=== PATIENT | male | born 1950 | race Caucasian/White ===

== ENCOUNTER 2022-11-10 05:50 | Inpatient (IN) ==
--- NOTE | 2022-10-16 08:43 | PAT Medication Instructions ---
Medication Instructions Date of Service October 16, 2022 Home Medications allopurinol 100 mg tablet 100 mg PO QAM ascorbic acid (vitamin C) 1,000 mg capsule 1 g PO QAM aspirin 81 mg tablet,delayed release (Adult Aspirin Regimen) 81 mg PO QAM atorvastatin 80 mg tablet 80 mg PO HS krill oil 500 mg capsule 1 mg PO QAM metoprolol succinate 50 mg tablet,extended release 24 hr (Toprol XL) 50 mg PO HS multivitamin 1 tab PO QAM nitroglycerin 0.4 mg sublingual tablet 0.4 mg sublingual Q5M PRN Chest Pain sildenafil 50 mg tablet 50 mg PO DAILY PRN Sexual Activity vitamin B complex (B Complex-Vitamin B12 tablet) 1 tab PO QAM abiraterone 500 mg tablet 1,000 mg PO QAM clopidogrel 75 mg tablet (Plavix) 75 mg PO QAM lisinopril 20 mg tablet 20 mg PO BID potassium 99 mg tablet 99 mg PO QAM Continue as directed nitroglycerin 0.4 mg sublingual tablet 0.4 mg sublingual Q5M PRN Chest Pain (if needed) ASK your prescriber and surgeon aspirin 81 mg tablet,delayed release (Adult Aspirin Regimen) 81 mg PO QAM clopidogrel 75 mg tablet (Plavix) 75 mg PO QAM abiraterone 500 mg tablet 1,000 mg PO QAM STOP taking 2 weeks before surgery (or as soon as possible if surgery is within 2 weeks) krill oil 500 mg capsule 1 mg PO QAM STOP taking 24 hours before surgery sildenafil 50 mg tablet 50 mg PO DAILY PRN Sexual Activity DO NOT take the morning of surgery ascorbic acid (vitamin C) 1,000 mg capsule 1 g PO QAM multivitamin 1 tab PO QAM vitamin B complex (B Complex-Vitamin B12 tablet) 1 tab PO QAM lisinopril 20 mg tablet 20 mg PO BID potassium 99 mg tablet 99 mg PO QAM Take morning of surgery With a small sip of water, OTHERWISE NOTHING TO EAT OR DRINK AFTER MIDNIGHT: allopurinol 100 mg tablet 100 mg PO QAM Take evening before surgery atorvastatin 80 mg tablet 80 mg PO HS metoprolol succinate 50 mg tablet,extended release 24 hr (Toprol XL) 50 mg PO HS lisinopril 20 mg tablet 20 mg PO BID Other Notes If you have any questions please call us at [phone] or [phone] or [phone] or [phone]
--- NOTE | 2022-10-21 08:17 | Anesthesiology Consultation ---
Date of Service October 21, 2022 Assessment & Plan (1) Encounter for pre-operative examination: - COVID screening: Per assessment on 10/21: No known COVID-19 positive contacts or current COVID-19 related symptoms. Travel screen- returned from [place] 10/18 (work related). Patient vaccinated. At surgeon discretion if preop Covid testing being done. - ASA/plavix instructions per surgeon/prescriber - Cardiology visit (10/03/22): "I asked him to keep followup appointment with Dr. Ventura next week for assessment of the carotid disease. He will change his lisinopril to 20 mg twice a day and metoprolol XL 75 mg at bedtime. I will followup with him after his appointment with Dr. Ventura regarding his carotids. Continue aspirin and Plavix for now along with statin." - Cardiology note (10/09/22): "Moderate risk" Chart Review Chart Review: Acceptable Risk for Surgery and Patient seen in Pre Admission Testing Teaching & Discussion Pre-Anesthesia Teaching/Discussion Notes: Instructed NPO after midnight before surgery,except medications with 15 cc of water. Medication instructions provided according to the PAT guidelines. History Surgery Operation Date: 11/10/22 08:00 Proposed Procedures p Left Transcarotid Artery Revascularization - Arnulfo Ventura MD Height/Weight Height: 5 ft 8 in Weight: 85.8 kg Allergies Allergy/AdvReac Type Severity Reaction Status Date / Time No Known Drug Allergies Allergy Verified 10/15/22 15:05 Medications Home Medications Medication Instructions Recorded Confirmed Last Taken allopurinol 100 mg tablet 100 mg PO QAM 02/20/22 10/15/22 Unknown ascorbic acid (vitamin C) 1,000 mg 1 g PO QAM 02/20/22 10/15/22 Unknown capsule aspirin 81 mg tablet,delayed 81 mg PO QAM 02/20/22 10/15/22 Unknown release (Adult Aspirin Regimen) atorvastatin 80 mg tablet 80 mg PO HS 02/20/22 10/15/22 Unknown krill oil 500 mg capsule 1 mg PO QAM 02/20/22 10/15/22 Unknown metoprolol succinate 50 mg 50 mg PO HS 02/20/22 10/15/22 Unknown tablet,extended release 24 hr (Toprol XL) multivitamin 1 tab PO QAM 02/20/22 10/15/22 Unknown nitroglycerin 0.4 mg sublingual 0.4 mg sublingual Q5M PRN Chest 02/20/22 10/15/22 Unknown tablet Pain sildenafil 50 mg tablet 50 mg PO DAILY PRN Sexual Activity 02/20/22 10/15/22 Unknown vitamin B complex (B 1 tab PO QAM 02/20/22 10/15/22 Unknown Complex-Vitamin B12 tablet) abiraterone 500 mg tablet 1,000 mg PO QAM 10/15/22 10/15/22 Unknown clopidogrel 75 mg tablet (Plavix) 75 mg PO QAM 10/15/22 10/15/22 Unknown lisinopril 20 mg tablet 20 mg PO BID 10/15/22 10/15/22 Unknown potassium 99 mg tablet 99 mg PO QAM 10/15/22 10/15/22 Unknown Past Medical History Medical History Aortic stenosis Mild per 04/2022 echo CAD (coronary artery disease) 2012 > stents x3 Carotid artery stenosis Gout Heart disease HTN (hypertension) Hyperlipidemia Myocardial infarction 2012- Follows w/ cardio (Dr Kristina Ornelas) Prostate cancer on abiraterone daily (and radiation therapy to be done) Exercise / Class Metabolic Activity III < 4 Walking/Shop/Light housework Past Family History Family History Father , Passed age 89 Pancreatic cancer Mother No problems noted. Sister No problems noted. Sister No problems noted. Brother No problems noted. Daughter No problems noted. Past Surgical History Surgical History History of arthroscopic knee surgery History of back surgery x 5 surgeries after a skiing accident ~ 51 yrs ago History of hip surgery Left History of prostate biopsy Dr. Matthew Faye at [facility] History of tonsillectomy and adenoidectomy Hx of cardiac catheterization 2012 Hx of colonoscopy Hx of heart artery stent 2013 > stents x3 Past Anesthesia History No Hx of Anesthesia Complications and No Family Hx of Anesthesia Complications History of PONV No Hx of PONV and No Hx of Motion Sickness Social History Smoking Status: Never smoker Do You Dip or Chew Tobacco: No Hx Alcohol Use: Yes alcohol intake frequency: a few times a week Hx Substance Use: No substance use type: does not use Review of Systems + stable PERALES. Patient denies chest pain, shortness of breath, fever, chills, cough, wheezing, palpitations. Physical Exam Vital Signs VITALS BP 165/89 P 78 TEMP 98.1 SP02 97%RA RESP 16 PHYSICAL Full cervical extension range of motion. Full TMJ range of motion. TMD 3 finger breaths Mallampati Score 3 Dentition: intact, several crowns Lungs: clear throughout to auscultation Cardiac: regular rate and rhythm, no murmurs noted Spine: normal Carotid arteries: negative bruit Extremities: no LE edema Lab Results Anesthesia Preop Results Results Anesthesia Widget: WBC 5.43 K/ul (4.8-10.8) 10/21/22 Hgb 15.0 g/dl (14.0-18.0) 10/21/22 Hct 44.3 % (42.0-52.0) 10/21/22 Plt 221 K/uL (130-400) 10/21/22 Na 143 mmol/L (136-145) 10/21/22 K 3.6 mmol/L (3.5-5.1) 10/21/22 Cl 108 mmol/L (98-107) H 10/21/22 CO2 30 mmol/L (21-32) 10/21/22 BUN 11 mg/dl (6-23) 10/21/22 Creat 0.89 mg/dl (0.6-1.4) 10/21/22 Glucose Level 92 mg/dl (70-99(Fasting)) 10/21/22 PT 10.2 Seconds (9.0-12.0) 10/21/22 PTT 26.4 Seconds (21.0-31.0) 10/21/22 INR 1.0 (0.9-1.1) 10/21/22 Blood Type A Positive 10/21/22 Antibody Screen NEGATIVE 10/21/22 Testing Electrocardiogram Date: 07/04/22 Sinus rhythm at 81 bpm. PVCs. Slight IVCD. ECG without significant abnormalities. Chest X-Ray Date: 10/21/22 FINDINGS: Cardiomediastinal and hilar silhouettes are within normal limits. No pneumothorax, pleural effusion, airspace consolidation or overt pulmonary edema. Mild coarsening of interstitium is likely chronic. Degenerative changes of the shoulders and spine. IMPRESSION: No acute process. Echocardiogram Date: 05/02/22 EF 55%. Moderate LAD. Mild AR. Mild aortic stenosis (MG 13 mmHg) mild MR. Stress Test Date: 09/14/20 Exercise tolerance poor fair. Hemodynamic response to exerciseaccelerated. Rare PVCs and PACs. Stress test negative for ischemia by EKG criteria. Stress EKG negative for ischemia. Other Testing Carotid duplex (04/30/22) Extensive atherosclerotic disease. 50-69% left ICA stenosis based on peak systolic velocities however greater than 70% stenosis suggested by the ICA/CCA ratio. Less than 50% YINKA stenosis. COVID-19 Risk Screen Screening Information COVID-19 Screen Date: 10/21/22 Exposure 21 Days Family/Household +COVID Last 21 Days: No Exposure 10 Days Any COVID Exposure Last 10 Days: No Symptoms Last 10 Days Experienced COVID Sx Last 10 Days: No + COVID 0-90 Days COVID + in Last 0-90 Days: No
[2022-11-10] MEDS ORDERED: CEFAZOLIN 2,000 MG/15 ML SYR IV SCH (06:00)
[2022-11-10] MEDS ORDERED: SODIUM CHLORIDE 0.9% 1000ML 1,000 ML IV SCH (06:00)
[2022-11-10 06:57] LABS: BUN Creatinine Ratio 18.9 (10-20); Creatinine Clr Calc Pharmacy 96.7 ml/min; Est GFR (African American) 107.6 ml/min; Est GFR (Non-African American) 92.8 ml/min; Potassium 3.4 mmol/L (3.5-5.1)
[2022-11-10] MEDS ORDERED: fentaNYL citrate PF 100 MCG/2 ML VIAL ONE ×2 (07:19)
[2022-11-10] MEDS ORDERED: MIDAZOLAM HCL 1 MG/ML 2ML VIAL ONE (07:19)
[2022-11-10] MEDS ORDERED: LIDOCAINE 2% 2 ML VIAL/AMP(20MG/ML) INFIL ONE (07:19)
[2022-11-10] MEDS ORDERED: ACETAMINOPHEN 1000 MG/100 ML IV IV ONE (07:24)
[2022-11-10] MEDS ORDERED: FAMOTIDINE/PF 20 MG/2 ML VIAL IV ONE (07:25)
[2022-11-10] MEDS ORDERED: ROCURONIUM BROMIDE 10 MG/ML 5 ML VIAL IV ONE ×2 (07:25→07:44)
[2022-11-10] MEDS ORDERED: HEPARIN (PORCINE) 1000 UNIT/ML 10 ML (CATH LAB USE ONLY) ONE (07:28)
[2022-11-10] MEDS ORDERED: ceFAZolin 330 MG/ML 1 GM VIAL ONE (07:28)
[2022-11-10] MEDS ORDERED: THROMBIN FOR SOLN 20000 UNIT KIT ONE (07:29)
[2022-11-10] MEDS ORDERED: GELATIN SPONGE SZ 100 ONE (07:29)
--- NOTE | 2022-11-10 07:43 | History & Physical Report ---
Date of Service November 10, 2022 History of Present Illness Primary Care Provider: BALDO [place] Name: FREDY FARIAS Patient Number: [id number] : 1950 Date of Service: 10/09/2022 Chief Complaint: _New patient consultation for carotid stenosis HPI: _Mr. Farias is an elderly male who presents to Dr. Ventura's vascular surgery clinic today as a new patient in consultation for severe left ICA stenosis noted on recent imaging. 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 He states when he went for his follow-up visit in June, she advi sed him that the ultrasound showed significant narrowing his neck artery she was going to have him undergo a CTA. The CTA confirmed the severe stenosis, and he was referred here for possible surgical intervention. Patient denies any history of CVA. He specifically denies amaurosis, extremity weakness numbness or tingling, difficulty speaking or swallowing, facial droop, sudden onset confusion. He also denies headache, fever, recent illness, chest pain, shortness of breath, abdominal pain, nausea, vomiting, rest pain, claudication, nonhealing wounds or ulcers, other complaints. He is very active, and fly fishes regularly. He does state that his in July of this year, and he has been dealing with this. Additionally he was recently diagnosed with prostate cancer which is an operable, but he is taking oral medications and will undergo radiation at a later time. Review of systems: A total of 14 systems were reviewed and are negative aside from what is related in his HPI Imaging: Patient underwent a CTA of the neck performed at [facility] 07/25/2022 which demonstrates a severe stenosis of the left ICA which is near occlusive. His right ICA demonstrates about 50% stenosis. Current Home Meds: (Last Updated 10/09 09:18) abiraterone (abiraterone 250 mg oral tablet) 1,000 mg PO Daily allopurinol (allopurinol 100 mg oral tablet) 100 mg PO bid ascorbic acid (Vitamin C 1000 mg oral tablet) 1,000 mg PO Daily aspirin (aspirin 81 mg oral delayed release tablet) 81 mg PO Daily atorvastatin (atorvastatin 80 mg oral tablet) 80 mg PO qhs clopidogrel (clopidogrel 75 mg oral tablet) 75 mg PO Daily lisinopril (lisinopril 20 mg oral tablet) 2 tabs po q AM and 1 tab q PM methylcobalamin (Vitamin B12 Methylcobalamin 5000 mcg sublingual tablet) 5,000 mcg SL Daily metoprolol (Metoprolol Succinate ER 50 mg oral tablet, extended release) 1.5 tablets po q PM multivitamin 1 tab PO Daily potassium chloride (Potassium Chloride (Ywz-Mjlq-Eji M20) 20 mEq oral tablet, extended release) 20 mEq PO Daily Allergies and Sensitivities: NKA Past Medical History: Problems: Bilateral carotid artery stenosis Coronary artery disease Hypertension Hyperlipidemia Prostate CA PVCs Surgical history: Positive for cardiac catheterization with coronary stent placement 2013, back surgery at the age of 21 left knee torn meniscus, tonsillectomy Social history: Patient is a lifelong non-smoker. He occasionally has alcohol, he denies any illicit drug use. He is very active. Family history: Parents of natural causes, no known definite illnesses. Siblings have no medical problems. OBJECTIVE Vitals: Last Updated 10/09/22 09:32 Date Temp BP Location Pulse RR SpO2 Pain 10/09/22 160/90 Right Arm 10/09/22 168/92 Left Arm 79 97 0 Vital Signs are the last 3 documented. No Orthostatic Data Available Height and Weight: Last Updated 10/09/22 09:29 Date BMI Wt(kg) Wt(lb) Method Ht(cm) (ft-in) Method 10/09/22 85.6 188 Standing Scale Heights and Weights are the last 3 documented. Physical Exam Constitutional: In general patient is a healthy-appearing well-nourished well- developed elderly male no distress. He is alert and oriented without any focal deficits. His trachea is midline. His left neck demonstrates a very faint high-pitched bruit. His heart is regular, his lungs are clear. His abdomen soft nontender with normoactive bowel sounds in all 4 quadrants. Brachial radial and left femoral pulses +3. Right femoral pulse is +2. His lower extremities a pulses are +1. He has brisk capillary refill and no sign of distal ischemia. He has no edema. ASSESSMENT: _ PLAN: _ 1 ) _bilateral ICA stenosis Patient has about 50% stenosis of the right ICA and over 95% stenosis of his left ICA by CTA. Patient was also seen by Dr. Ventura today who reviewed the patient's imaging. Due to the severity of the stenosis in his left ICA, we recommend that he undergo surgical intervention to prevent a cerebrovascular event. The surgical options of carotid endarterectomy versus transcarotid artery revascularization were discussed at length with the patient, including th e risks, benefits, and advantages of each. Patient elects to proceed with a transcarotid artery revascularization on the left ICA. The procedure risks benefits and alternatives were discussed with the patient by myself at Dr. Ventura's request. Patient expresses understanding and agreement to proceed. Patient is already taking clopidogrel, baby aspirin, and atorvastatin. He will need to undergo platelet function testing prior to his procedure. He was advised to call with any other questions or concerns. Thank you for letting us participate in the care of this patient. Signature Line Electronic Signature on File CC: Kristina Ornelas [address] [id number] * CC: BALDO Bonilla [address] [id number] * Electronically Reviewed/Signed by: Bibi Sherwood PA-C Author Signature Dt/Tm:10/09/2022 10:[address] [facility] [place], [address] [place] [address] LM Result Type: HVI Outpt Note Date of Service: October 09, 2022 10:18 EDT Authorization Status: Final Author or Import Date: MAU Sherwood Lynn on October 09, 2022 10:53 EDT Verified By: MAU Sherwood Lynn on October 09, 2022 10:53 EDT Encounter info: [id number], [facility], Clinic, 10/09/2022 - 10/09/2022 Allergies Allergy/AdvReac Type Severity Reaction Status Date / Time No Known Drug Allergies Allergy Verified 11/10/22 06:21 Home Medications Medication Instructions Recorded Confirmed Type allopurinol 100 mg tablet 100 mg PO QAM 02/20/22 11/10/22 History ascorbic acid (vitamin C) 1,000 mg 1 g PO QAM 02/20/22 11/10/22 History capsule aspirin 81 mg tablet,delayed 81 mg PO QAM 02/20/22 11/10/22 History release (Adult Aspirin Regimen) atorvastatin 80 mg tablet 80 mg PO HS 02/20/22 11/10/22 History krill oil 500 mg capsule 1 mg PO QAM 02/20/22 11/10/22 History metoprolol succinate 50 mg 50 mg PO HS 02/20/22 11/10/22 History tablet,extended release 24 hr (Toprol XL) multivitamin 1 tab PO QAM 02/20/22 11/10/22 History nitroglycerin 0.4 mg sublingual 0.4 mg sublingual Q5M PRN Chest 02/20/22 11/10/22 History tablet Pain sildenafil 50 mg tablet 50 mg PO DAILY PRN Sexual Activity 02/20/22 11/10/22 History vitamin B complex (B 1 tab PO QAM 02/20/22 11/10/22 History Complex-Vitamin B12 tablet) abiraterone 500 mg tablet 1,000 mg PO QAM 10/15/22 11/10/22 History clopidogrel 75 mg tablet (Plavix) 75 mg PO QAM 10/15/22 11/10/22 History lisinopril 20 mg tablet 20 mg PO BID 10/15/22 11/10/22 History potassium 99 mg tablet 99 mg PO QAM 10/15/22 11/10/22 History amlodipine 5 mg tablet 5 mg PO DAILY 11/04/22 11/10/22 History Past Med/Surg History Medical History Aortic stenosis Mild per 04/2022 echo CAD (coronary artery disease) 2012 > stents x3 Carotid artery stenosis Gout Heart disease HTN (hypertension) Hyperlipidemia Myocardial infarction 2012- Follows w/ cardio (Dr Kristina Ornelas) Prostate cancer on abiraterone daily (and radiation therapy to be done) Surgical History History of arthroscopic knee surgery History of back surgery x 5 surgeries after a skiing accident ~ 51 yrs ago History of hip surgery Left History of prostate biopsy Dr. Matthew Faye at [facility] History of tonsillectomy and adenoidectomy Hx of cardiac catheterization 2012 Hx of colonoscopy Hx of heart artery stent 2013 > stents x3 Family History Father , Passed age 89 Pancreatic cancer Mother No problems noted. Sister No problems noted. Sister No problems noted. Brother No problems noted. Daughter No problems noted. Social History Smoking Status: Never smoker Second Hand Exposure: No; Do You Dip or Chew Tobacco: No; Tobacco Cessation Education Requested by Patient: No Hx Alcohol Use: Yes Alcohol Intake Frequency: Monthly or Less Hx Substance Use: No Preferred Language: Somali Communication Ability: Effective Visual Impairment: Limited Hearing Ability: Normal Apiculture Teacher Required: No Beliefs That Will Affect Care: None marital status: Current Living Situation: Alone current occupational status: employed current occupation: [employer] How many Children do You have: 1 Other Information That Helps Us Care for You: No Feels Safe at Home: Yes Safety Concerns: Feels Safe At This Time Childhood Exposure to Second-Hand Smoke: No Diet: regular caffeine: Yes (1 cup of coffee daily) during the past year weight has: remained stable Dental Care, Regularly: Yes Assistive Devices: Contacts and Glasses Results & Data Vital Signs (Past 12 Hours) Vital Signs Temp Pulse Resp BP Pulse Ox O2 Del Method 11/10/22 06:29 37 C 75 20 178/103 H 97 Room Air
[2022-11-10] MEDS ORDERED: ATROPINE SULFATE 0.1 MG/ML 10ML SYR IV PRN (07:48)
[2022-11-10] MEDS ORDERED: ePHEDrine sulfate 50 MG/ML AMP IV PRN (07:48)
[2022-11-10] MEDS ORDERED: fentaNYL citrate PF 100 MCG/2 ML VIAL IV PRN (07:48)
[2022-11-10] MEDS ORDERED: ONDANSETRON INJ 2 MG/ML 2 ML VIAL IV PRN ×2 (07:48→11:36)
[2022-11-10] MEDS ORDERED: HYDROmorphone INJ 2 MG/ML SYR/VIAL IV PRN (07:48)
[2022-11-10] MEDS ORDERED: HEPARIN SOD (PORCINE) 1000 UNIT/ML ONE (09:08)
[2022-11-10] MEDS ORDERED: ONDANSETRON INJ 2 MG/ML 2 ML VIAL ONE (09:08)
[2022-11-10] MEDS ORDERED: VASOPRESSIN 20 UNIT/ML VIAL ONE (09:09)
[2022-11-10] MEDS: LIDOCAINE 1% LOCAL 20 ML VIAL ONE ×2 (09:18→09:45)
[2022-11-10] MEDS: BUPIVACAINE/EPINEPHRINE 0.5% MPF 1:200,000 30 ML VIAL ONE ×2 (09:18→09:45)
[2022-11-10] MEDS ORDERED: PROTAMINE SULFATE 10 MG/ML 5 ML VIAL IV ONE (09:22)
[2022-11-10] MEDS ORDERED: STAT IV Infusion **Titration per Protocol STA (09:23)
[2022-11-10] MEDS ORDERED: LARYING-O-JET KIT (LTA) ONE (09:26)
[2022-11-10] MEDS ORDERED: VISIPAQUE IV ONE (09:35)
[2022-11-10] MEDS ORDERED: SUGAMMADEX SODIUM 200 MG/2 ML VIAL IV ONE (09:38)
--- NOTE | 2022-11-10 09:51 | Procedure Note ---
Angiogram Post Procedure Fluoroscopy Time (minutes): 1.8 Radiation (mGy): 21 Contrast: 10 Post Operative Report Pre & Post Diagnosis Operation Date: 11/10/22 08:00 Pre-Op Diagnosis: Left Internal Carotid Artery Stenosis Post-Op Diagnosis: Left Internal Carotid Artery Stenosis I identified the patient and participated in the time-out.: Yes Procedure Operation Date: 11/10/22 08:00 Actual Procedures p Left Transcarotid Artery Revascularization(Left) - Arnulfo Ventura MD Surgeon Arnulfo Ventura MD Gear Shaver Set Up Operator MARIETTA Mcnulty Estimated Blood Loss 40 Findings Consistent with Post-Op Diagnosis Specimens none Anesthesia Type General Complications none Disposition Accompanied Patient To Recovery: No Disposition: Recovery Room Indications Patient is a 72-year-old female found to have severe left internal carotid artery stenosis. Carotid intervention was recommended. Went over the risks options and benefits of carotid endarterectomy versus TCAR. Patient elected to go ahead with a TCAR procedure. I have discussed the risks options and benefits of the procedure with the patient. The patient understands the risks options and benefits and agrees to the procedure. Description of Procedure The patient was taken to the operating room and placed in supine position. After general anesthesia was accomplished the groins and left side of the neck and chest were prepped and draped in a sterile manner. Timeout was performed and the patient was identified. A transverse incision was made just above the clavicle between the heads of the sternocleidomastoid. This was carried down to where the common carotid artery was identified. It was isolated and slung with an umbilical tape. A 5-0 Prolene U stitch was then placed in the common carotid artery. It was given 8000units of heparin at that time. Ultrasound was then used to localize the left common femoral vein. The vein was patent and compressed easily. Under ultrasound guidance the left common femoral vein was punctured and the venous sheath was inserted. This was aspirated and flushed with heparinized saline. An ACT at that time was 269. Using micropuncture technique the common carotid artery was punctured. The micro sheath was inserted to 3 cm. Injection was then done showing the bifurcation. There was a significant lesion seen at the origin of the internal carotid artery on the left side. We reinserted the micro wire and passed it into the external carotid. We then advanced the dilator and sheath into the external carotid. The dilater and sheath were removed. We then inserted the J-wire into the external carotid artery. The TCAR sheath was inserted. The footplate was removed being that we tunneled the sheath from below the clavicle. Once it was in place and held against the artery it was sutured to the chest wall and the incision edge. We then flushed the tubing appropriately. The venous return tubing was clamped onto the TCAR sheath. It was flushed through and then attached to the venous inflow sheath in the right groin. The sheath was checked for flow. We then inserted a 5 x 35 balloon backloaded on the wire. The wire was passed through the lesion into the petrous portion of the internal carotid. The 5 mm balloon was then advanced to the lesion. The lesion was then predilated with the 5 mm balloon. The balloon was removed. We then inserted the 10 x 40 stent. This was deployed across the lesion without difficulty. The catheter was removed. The carotid was allowed to go 2 minutes with flow reversal. Completion angiogram was done at that time which showed only minimal residual stenosis at the location of the severe stenosis..The wire was removed we allowed 2 minutes of flow reversal to occur. A that point the common carotid artery was unclamped. The venous return tubing was clamped and removed from the TCAR sheath. The blood was allowed to flow back into the venous system. Once this was completed the sheath was pulled from the groin and pressure was applied. The TCAR sheath was then removed and the 5-0 Prolene suture securely tied. Hemostasis was noted of the puncture site. Wound was irrigated with Ancef solution. Adequate hemostasis was obtained of the wound. Once this was noted the wound was closed in usual fashion using a 3-0 Vicryl suture for the subcutaneous layer and a 4-0 subcuticular Vicryl suture for the skin edges. Dermabond was used for dressing.The patient left the operation room in satisfactory condition and tolerated the procedure well. All needle and sponge counts were correct at the end of the procedure Bibi Sherwood Pac assisted due to lack of resident availability and was necessary for positioning, draping, retraction, wound closure deep layers, subcutaneous tissue, and skin closure and was necessary for assisting with the case.. I attest to the content of the Intraoperative Record and any orders documented therein. Any exceptions are noted below.
[2022-11-10] MEDS ORDERED: PHENYLEPHRINE HCL 10 MG/ML VIAL ONE (10:21)
[2022-11-10] MEDS: PHENYLEPHRINE/NSS 25 MG/250 ML BAG IV SCH ×2 (10:44→20:31)
--- NOTE | 2022-11-10 11:14 | Anesthesiology Progress Note ---
Date of Service November 10, 2022 Anesthesia Post Procedure Vital Signs Vital Signs: Temp Pulse Pulse Resp BP Pulse Ox O2 Del Method 11/10/22 10:40 85 15 131/76 92 Room Air 11/10/22 10:30 87 13 141/77 H 93 Room Air 11/10/22 11:00 36.5 C 77 14 163/99 H 96 Nasal Cannula 11/10/22 10:50 79 11 L 124/71 93 Nasal Cannula 11/10/22 10:20 88 16 134/86 99 Oxymask 11/10/22 10:10 36.2 C L 90 12 153/97 H 97 Oxymask 11/10/22 06:29 37 C 75 20 178/103 H 97 Room Air O2 Flow Rate 11/10/22 10:40 11/10/22 10:30 11/10/22 11:00 2 11/10/22 10:50 2 11/10/22 10:20 5 11/10/22 10:10 5 11/10/22 06:29 Pain Intensity Left Upper Chest: Pain Intensity: 4 Transfer of Care Handoff Completed per policy Notes Mental Status: alert / awake / arousable and participated in evaluation Patient Amnestic to Procedure: Yes Nausea / Vomiting: adequately controlled Pain: adequately controlled Airway Patency, RR, SpO2: stable & adequate BP & HR: stable & adequate Hydration State: stable & adequate Anesthetic Complications: no major complications apparent and Pt Satisfied with anesthetic care
[2022-11-10] MEDS ORDERED: NON-FORMULARY MEDICATION (Sildenafil 50 mg tablet) PO PRN (11:36)
[2022-11-10] MEDS ORDERED: NITROGLYCERIN SL 0.4 MG/TAB TAB SL PRN (11:36)
[2022-11-10] MEDS ORDERED: LACTATED RINGER'S 1,000 ML IV SCH (11:36)
[2022-11-10] MEDS: oxyCODONE/ACETAMINOPHEN 5mg/325mg TAB PO PRN ×4 (12:14→23:59)
--- NOTE | 2022-11-10 12:28 | Critical Care Consultation ---
Date of Consultation November 10, 2022 Assessment & Plan (1) Stented coronary artery: (2) Unifocal PVCs: (3) Heart disease: (4) Gout: (5) HTN (hypertension): (6) Hyperlipidemia: (7) Prostate cancer: Plan Reason Critically Ill: 72-year-old male with severe LEFT-sided carotid artery disease status post TCAR requiring close hemodynamic and neurologic monitoring status post vascular intervention. NEURO - * CAM ICU: NEGATIVE * Headache: * Patient complains of slight headache rated 4/10 at this time. * No focal neurological deficits on exam. * Patient complained of this headache prior to surgical intervention. * Will treat headache conservatively initially and consider evaluation with follow-up imaging in the event that it were to change or worsen. * Monitor neurological status closely in the patient who is status post TCAR. CARDIAC/VASCULAR - * Carotid artery stenosis status post TCAR of the LEFT-sided carotid artery: * Postsurgical incision sites and LEFT-sided neck appear well on exam. * No focal neurological deficits on exam noted. * Continue to monitor blood pressure and neurochecks per postoperative unit protocol. * Deferred to vascular surgery for postoperative management otherwise. * Coronary disease, hypertension, hyperlipidemia: * Continue home medications as tolerated. * Monitor on telemetry. RESPIRATORY - * No history of pulmonary disease. * Saturating well on room air. GI/NUTRITION - * Progress diet as tolerated. RENAL/LYTES - * No significant electrolyte derangements. - * Metastatic prostate cancer: * Patient currently taking abiraterone. * Starts 5 weeks of radiation soon. ENDO - * No h/o DM or thyroid Dz * BSGs per unit protocol. ISS --> gtt per unit policy. HEME - * Stable H&H. * Monitor for s/s bleeding s/p vascular intervention. ID - * No concerns for infectious contribution at this time. LINES/IV ACCESS - * PIVs x2 * LEFT Radial Arterial Line DVT PROPHYLAXIS - * Hold on chemoprophylaxis s/p TCAR. Defer to Vascular surgery moving forward. Anticipate early ambulation and discharge. * SCDs I have personally spent 35 minutes of critical care time in the direct management of this patient. This is a life/limb threatening event. This includes time spent evaluating patient, direct bedside care, chart review, placing orders, interpretation of diagnostic studies, discussion with consultants, patient, and family members, as well as other required patient management activities. This time is exclusive of all separately billable procedures, and teaching time and separate from and in addition to any other critical care service time. Thank you for allowing us to participate in the care of this patient. Please refer to my attending physician's documentation for any further recommendations. Supervising Physician Co-Signing Physician Notes I saw and evaluated the patient with Chris Chacon PA-C, and agree with findings and plan as documented in the note. 72-year-old male admitted to the hospital ICU s/p left-sided TCAR Past medical history: Coronary artery disease, hypertension, dyslipidemia, gout, recently diagnosed with metastatic prostate CA At the time of examination patient systolic blood pressure was 150s. He had just been turned off of norepinephrine Denies any headache, no nausea vomiting. Did complain of pain at the left surgical site. No blurry vision No chest pain, no shortness of breath He was saturating 94-96% on room air Constitutional: No acute distress HEENT: EOMI, PERRLA, left-sided incision site clean Respiratory system: Decreased air entry bilaterally, no wheeze, no rhonchi, positive crackles bilateral lower lobes CVS: S1-S2 positive, no murmurs or gallops Abdomen: Soft, nontender, nondistended, positive bowel sounds x4 Extremities: +2 pulses bilaterally radialis/ dorsalis pedis, no cyanosis, no edema Neuro: Awake alert oriented x3, strength 5 out of 5 bilateral upper and lower extremity, cranial nerves II to XII grossly intact Psych: Normal mood and affect G/U: No edema Plan: Monitor blood pressure Medication to control the pain Neurochecks as per protocol Potassium today was 3.4. We will give 40 mg of p.o. potassium He is on chronic 20 mg of potassium p.o. on a daily basis Follow vascular surgery recommendations Please note the above document was generated using voice recognition software. It may contain grammatical, syntax or spelling errors.Any formal questions or c oncerns about the content, text or information contained within the body of this dictation should be directly addressed to the provider for clarification. History of Present Illness Reason for Consultation: s/p TCAR Requesting Physician: Dr. Ventura Attending Physician: Arnulfo Ventura MD History of Present Illness Patient is a 72-year-old male with a significant past medical history of coronary artery disease, hypertension, hyperlipidemia, gout, PVCs, and recent diagnosis of metastatic prostate cancer who was admitted to the ICU status post TCAR. Patient had undergone routine screening imaging and was noted to have LEFT-sided coronary artery stenosis. He underwent CTA which suggested 95% stenosis on the LEFT and 50% stenosis on the RIGHT. Thankfully, the patient has been without symptoms of headaches, dizziness, lightheadedness, blurry vision, double vision, slurred speech, unilateral weakness/numbness, or other neurological findings. Upon evaluation in the ICU, the patient is awake, alert, and oriented. He complains of a slight headache which he rates a 4/10 and notes that it was present this morning prior to the surgery. Otherwise, he notes some pain at the LEFT sided neck base as the surgical site. He denies complaints of visual disturbances, slurred speech, facial droop, numbness/weakness to the extremities, chest pain, palpitations, shortness of breath, nausea, or vomiting. Allergies Allergy/AdvReac Type Severity Reaction Status Date / Time No Known Drug Allergies Allergy Verified 11/10/22 06:21 Home Medications Medication Instructions Recorded Confirmed Type allopurinol 100 mg tablet 100 mg PO QAM 02/20/22 11/10/22 History ascorbic acid (vitamin C) 1,000 mg 1 g PO QAM 02/20/22 11/10/22 History capsule aspirin 81 mg tablet,delayed 81 mg PO QAM 02/20/22 11/10/22 History release (Adult Aspirin Regimen) atorvastatin 80 mg tablet 80 mg PO HS 02/20/22 11/10/22 History krill oil 500 mg capsule 1 mg PO QAM 02/20/22 11/10/22 History metoprolol succinate 50 mg 50 mg PO HS 02/20/22 11/10/22 History tablet,extended release 24 hr (Toprol XL) multivitamin 1 tab PO QAM 02/20/22 11/10/22 History nitroglycerin 0.4 mg sublingual 0.4 mg sublingual Q5M PRN Chest 02/20/22 History tablet Pain sildenafil 50 mg tablet 50 mg PO DAILY PRN Sexual Activity 02/20/22 11/10/22 History vitamin B complex (B 1 tab PO QAM 02/20/22 11/10/22 History Complex-Vitamin B12 tablet) abiraterone 500 mg tablet 1,000 mg PO QAM 10/15/22 11/10/22 History clopidogrel 75 mg tablet (Plavix) 75 mg PO QAM 10/15/22 11/10/22 History lisinopril 20 mg tablet 20 mg PO BID 10/15/22 11/10/22 History potassium 99 mg tablet 99 mg PO QAM 10/15/22 11/10/22 History amlodipine 5 mg tablet 5 mg PO DAILY 11/04/22 11/10/22 History Patient History Medical History (Updated 11/10/22 @ 12:24 by Chris Chacon PA-C) Aortic stenosis Mild per 04/2022 echo CAD (coronary artery disease) 2012 > stents x3 Carotid artery stenosis Gout Heart disease HTN (hypertension) Hyperlipidemia Myocardial infarction 2012- Follows w/ cardio (Dr Kristina Ornelas) Prostate cancer on abiraterone daily (and radiation therapy to be done) Surgical History History of arthroscopic knee surgery History of back surgery x 5 surgeries after a skiing accident ~ 51 yrs ago History of hip surgery Left History of prostate biopsy Dr. Matthew Faye at [facility] History of tonsillectomy and adenoidectomy Hx of cardiac catheterization 2012 Hx of colonoscopy Hx of heart artery stent 2012 > stents x3 Family History Father , Passed age 89 Pancreatic cancer Mother No problems noted. Sister No problems noted. Sister No problems noted. Brother No problems noted. Daughter No problems noted. Social History Smoking Status: Never smoker Second Hand Exposure: No; Do You Dip or Chew Tobacco: No; Tobacco Cessation Education Requested by Patient: No Hx Alcohol Use: Yes Alcohol type: beer, wine and hard liquor Alcohol Intake Frequency: Monthly or Less Hx Substance Use: No Preferred Language: [place]an Communication Ability: Effective Visual Impairment: Limited Hearing Ability: Normal Double Cutter Required: No Beliefs That Will Affect Care: None marital status: Current Living Situation: Alone current occupational status: employed current occupation: [employer] How many Children do You have: 1 Other Information That Helps Us Care for You: No Feels Safe at Home: Yes Safety Concerns: Feels Safe At This Time Childhood Exposure to Second-Hand Smoke: No Diet: regular caffeine: Yes (1 cup of coffee daily) during the past year weight has: remained stable Dental Care, Regularly: Yes Assistive Devices: Glasses Review of Systems Review of Systems: A complete 10 point review of systems was reviewed with the patient with pertinent positives and negatives as per history of present illness. All else were negative. Physical Exam Physical Exam: VITAL SIGNS - Vital signs and nursing notes were reviewed. GENERAL - 72-year-old male appearing his stated age who is in no acute distress. Communicates well with provider and answers questions appropriately. SKIN - LEFT sided neck surgical incision site clean, dry, and intact. Groin dressing intact. HEAD - NC/AT. EYES - PERRL with EOMI bilaterally. Sclera anicteric. EARS - No deformities of external structures noted on gross examination bilaterally. NOSE - Midline and without cyanosis. No epistaxis or purulent drainage noted. MOUTH/OROPHARYNX - Without perioral cyanosis. Buccal mucosa pink and moist. NECK - Skin as above. Neck with FROM. Supple to palpation. LUNGS - Chest wall symmetric without accessory muscle use, intercostals retractions, or central cyanosis. Normal vesicular breath sounds CTA B/L. No wheezes, rales, or rhonchi appreciated. CARDIAC - RRR with S1/S2. No murmur, rubs, or gallops appreciated. ABDOMEN - Abdominal contour obese without pulsations or visible masses. BS normoactive all four quadrants. No tenderness, palpable masses, hepatosplenomegaly, or ascites noted. EXTREMITIES - No clubbing or peripheral cyanosis. No pretibial edema present. +3/5 radial and dorsalis pedis pulses palpated throughout. +5/5 strength noted in UE/LE bilaterally. NEUROLOGIC - Cranial nerves II through XII grossly intact. Sensory intact to light touch throughout. PSYCH - A&Ox3 and cooperates fully with examiner. Pt is very pleasant and interacts well with examiner. Results & Data Results & Data Vital Signs (Past 12 Hours) Vital Signs Temp Pulse Pulse Pulse Resp BP BP 11/10/22 12:00 78 21 11/10/22 12:00 137/84 11/10/22 11:45 86 24 11/10/22 11:45 151/88 H 11/10/22 11:40 142/79 H 11/10/22 11:40 81 17 11/10/22 11:35 86 19 11/10/22 11:37 37 C 75 16 151/71 H 11/10/22 10:40 85 15 131/76 11/10/22 10:30 87 13 141/77 H 11/10/22 11:00 36.5 C 77 14 163/99 H 11/10/22 10:50 79 11 L 124/71 11/10/22 10:20 88 16 134/86 11/10/22 10:10 36.2 C L 90 12 153/97 H 11/10/22 06:29 37 C 75 20 178/103 H Pulse Ox O2 Del Method O2 Flow Rate 11/10/22 12:00 92 Room Air 11/10/22 12:00 11/10/22 11:45 95 Room Air 11/10/22 11:45 11/10/22 11:40 11/10/22 11:40 90 Room Air 11/10/22 11:35 93 Room Air 11/10/22 11:37 92 Room Air 11/10/22 10:40 92 Room Air 11/10/22 10:30 93 Room Air 11/10/22 11:00 96 Nasal Cannula 2 11/10/22 10:50 93 Nasal Cannula 2 11/10/22 10:20 99 Oxymask 5 11/10/22 10:10 97 Oxymask 5 11/10/22 06:29 97 Room Air Laboratory Results 11/10/22 06:19 Coding Level of Care Code 55262 CRITICAL CARE 1ST 30-74M Diagnoses Stented coronary artery Z95.5 Unifocal PVCs I49.3 Heart disease I51.9 Gout M10.9 HTN (hypertension) I10 Hyperlipidemia E78.5 Prostate cancer C61 Time Spent (min) 35
[2022-11-10] MEDS: ceFAZolin 2000MG 2,000 MG/15 ML SYR IV SCH ×2 (15:55→23:57)
[2022-11-10] MEDS ORDERED: POTASSIUM CHLORIDE CRTAB 20 MEQ TABCR PO STA (16:16)
[2022-11-10] MEDS: lisinopril 20 MG TAB PO SCH (20:30)
[2022-11-10] MEDS ORDERED: METOPROLOL SUCC 50MG EXT REL TAB PO SCH (21:00)
[2022-11-10] MEDS ORDERED: ATORVASTATIN 40 MG TAB PO SCH (21:00)
[2022-11-11] MEDS: PHENYLEPHRINE/NSS 25 MG/250 ML BAG IV SCH (05:59)
[2022-11-11] MEDS: oxyCODONE/ACETAMINOPHEN 5mg/325mg TAB PO PRN (07:51)
[2022-11-11] MEDS: lisinopril 20 MG TAB PO SCH (07:55)
[2022-11-11] MEDS ORDERED: VITAMIN B COMPLEX TAB PO SCH (09:00)
[2022-11-11] MEDS ORDERED: ASCORBIC ACID 500 MG TAB PO SCH (09:00)
[2022-11-11] MEDS ORDERED: NON-FORMULARY MEDICATION (Krill Oil 500 mg capsule) PO SCH (09:00)
[2022-11-11] MEDS ORDERED: CLOPIDOGREL BISULFATE 75 MG TAB PO SCH (09:00)
[2022-11-11] MEDS ORDERED: MULTIVITAMIN TAB PO SCH (09:00)
[2022-11-11] MEDS ORDERED: allopurinoL 100 MG TAB PO SCH (09:00)
[2022-11-11] MEDS ORDERED: ASPIRIN 81 MG ECTAB PO SCH (09:00)
[2022-11-11] MEDS ORDERED: POTASSIUM CHLORIDE CRTAB 20 MEQ TABCR PO SCH (09:00)
[2022-11-11] MEDS ORDERED: amLODIPine BESYLATE 5 MG TAB PO SCH (09:00)
--- NOTE | 2022-11-11 09:02 | Critical Care Progress Note ---
Date of Service November 11, 2022 Assessment & Plan (1) Stented coronary artery: (2) Unifocal PVCs: (3) Heart disease: (4) Gout: (5) HTN (hypertension): (6) Hyperlipidemia: (7) Prostate cancer: Plan Reason Critically Ill: 72-year-old male with severe LEFT-sided carotid artery disease status post TCAR requiring close hemodynamic and neurologic monitoring status post vascular intervention. NEURO - * CAM ICU: NEGATIVE CARDIAC/VASCULAR - * Carotid artery stenosis status post TCAR of the LEFT-sided carotid artery: * Postsurgical incision sites and LEFT-sided neck appear well on exam. * No focal neurological deficits on exam noted. * Continue to monitor blood pressure and neurochecks per postoperative unit protocol. * Deferred to vascular surgery for postoperative management otherwise. * Coronary disease, hypertension, hyperlipidemia: * Continue home medications as tolerated. * Monitor on telemetry. RESPIRATORY - * No history of pulmonary disease. * Saturating well on room air. GI/NUTRITION - * Progress diet as tolerated. RENAL/LYTES - * No significant electrolyte derangements. - * Metastatic prostate cancer: * Patient currently taking abiraterone. * Starts 5 weeks of radiation soon. ENDO - * No h/o DM or thyroid Dz * BSGs per unit protocol. ISS --> gtt per unit policy. HEME - * Stable H&H. * Monitor for s/s bleeding s/p vascular intervention. ID - * No concerns for infectious contribution at this time. --Prophylaxis VTE: None, patient walking in the room GI: None Lines: Peripheral, left radial Diet: Cardiac Plan: Patient hemodynamically stable. Follow vascular surgery recommendations regarding disposition Please note the above document was generated using voice recognition software. It may contain grammatical, syntax or spelling errors.Any formal questions or concerns about the content, text or information contained within the body of this dictation should be directly addressed to the provider for clarification. Admission and Anticipated Discharge Date Admission Date: November 10, 2022 Subjective Patient seen and examined at bedside. No acute distress, no adverse events overnight Pain is significantly improved from the left incision site Denies any nausea vomiting No shortness of breath No difficulty swallowing No headache, no blurry vision Review of Systems Review of Systems: All systems reviewed & are unremarkable except as noted in Subjective Physical Exam Physical Exam: Constitutional: No acute distress HEENT: EOMI, PERRLA,left-sided incision site clean Respiratory system: Decreased air entry bilaterally, no wheeze, no rhonchi, positive crackles bilateral lower lobes CVS: S1-S2 positive, no murmurs or gallops Abdomen: Soft, nontender, nondistended, positive bowel sounds x4 Extremities: +2 pulses bilaterally radialis/ dorsalis pedis,no cyanosis, no edema Neuro: Awake alert oriented x3,strength 5 out of 5 bilateral upper and lower extremity, cranial nerves II to XII grossly intact Psych: Normal mood and affect G/U: No edema Skin: no rashes, warm and dry Lymphatic: no cervical or axillary lymphadenopathy Results & Data Results & Data Vital Signs (Past 12 Hours) Vital Signs Temp Pulse Pulse Resp BP BP Pulse Ox 11/11/22 08:00 79 15 11/11/22 08:00 150/85 H 11/11/22 07:31 150/90 H 11/11/22 07:31 21 90 11/11/22 07:30 89 22 90 11/11/22 07:05 147/93 H 11/11/22 07:05 75 15 93 11/11/22 07:00 78 18 93 11/11/22 07:00 147/89 H 11/11/22 08:25 11/11/22 08:00 76 11/11/22 07:10 36.9 C 77 18 147/93 H 93 11/11/22 06:00 66 17 142/89 H 94 11/11/22 05:00 63 15 117/76 95 11/11/22 04:00 37 C 76 18 121/76 94 11/11/22 03:00 69 16 116/71 92 11/11/22 02:00 71 14 132/81 94 11/11/22 01:00 77 13 131/86 94 11/11/22 00:00 37.2 C 87 19 150/92 H 94 11/10/22 23:00 78 14 146/87 H 95 11/10/22 22:00 88 18 138/86 95 11/10/22 21:00 91 H 20 168/94 H 91 O2 Del Method O2 Flow Rate 11/11/22 08:00 11/11/22 08:00 11/11/22 07:31 11/11/22 07:31 Room Air 11/11/22 07:30 Room Air 11/11/22 07:05 11/11/22 07:05 Room Air 11/11/22 07:00 Room Air 11/11/22 07:00 11/11/22 08:25 Room Air 11/11/22 08:00 11/11/22 07:10 Nasal Cannula 2 11/11/22 06:00 Nasal Cannula 2 11/11/22 05:00 Nasal Cannula 2 11/11/22 04:00 Nasal Cannula 2 11/11/22 03:00 Nasal Cannula 2 11/11/22 02:00 Nasal Cannula 2 11/11/22 01:00 Nasal Cannula 2 11/11/22 00:00 Nasal Cannula 2 11/10/22 23:00 Nasal Cannula 2 11/10/22 22:00 Nasal Cannula 2 11/10/22 21:00 Room Air Laboratory Results 11/10/22 06:19 Coding Level of Care Code 12674 SUB INP/OBS CARE 235MIN Diagnoses Stented coronary artery Z95.5 Unifocal PVCs I49.3 Heart disease I51.9 Gout M10.9 HTN (hypertension) I10 Hyperlipidemia E78.5 Prostate cancer C61
--- NOTE | 2022-11-11 13:03 | Surgery Progress Note ---
Date of Service November 11, 2022 Assessment & Plan (1) Carotid artery stenosis: Plan: Pt with severe L ICA stenosis, now POD #1 after uncomplicated L TCAR procedure. Pt overall doing well. No new neuro sx. Discussed with Dr Ventura. Ok for d/c home today. Will see in office in 2 weeks for follow up. Admission and Anticipated Discharge Date Admission Date: November 10, 2022 Subjective 72 yo m POD #1 after L TCAR, seen in f/u today. Pt admits some pain in L neck incision, but states is controlled with medication. Also admits fatigue, states did not sleep well last night. No amaurosis, extremity weakness or numbness, syncope, facial droop, confusion, difficulty speaking or swallowing. No other new complaints. Review of Systems Review of Systems: All systems reviewed & are unremarkable except as noted in HPI & below Physical Exam Constitutional: WD/WN, vitals as above ENMT: Ears: no hearing impairment Neck: trachea midline L supraclavicular incision C/D/I with skin glue. + local tenderness, mild edema, ecchymosis. Respiratory: normal respiratory effort, lungs clear to auscultation Auscultation: + diminished lung sounds Cardiovascular: Rate/Rhythm: regular rate and regular rhythm Vessels: + carotid bruit, posterior tibial pulses present, dorsalis pedis pulses present and radial pulses present; + abnormal peripheral pulses Extremities: normal capillary refill Gastrointestinal (Abdomen): Inspection/Auscultation: abdomen normal to inspection and normal bowel sounds Percussion/Palpation: abdomen soft; abdomen nontender Musculoskeletal: no cyanosis or clubbing, extremities motor strength 5/5 Skin: + incision (L neck) Neurologic: moves all extremities and awake; no focal motor deficits and not confused Psychiatric: A+Ox3, euthymic affect Results & Data Vital Signs (Past 12 Hours) Vital Signs Temp Pulse Pulse Pulse Resp BP BP 11/11/22 11:59 82 11/11/22 11:16 36.9 C 75 77 15 147/93 H 11/11/22 08:00 79 15 11/11/22 08:00 150/85 H 11/11/22 07:31 150/90 H 11/11/22 07:31 21 11/11/22 07:30 89 22 11/11/22 07:05 147/93 H 11/11/22 07:05 75 15 11/11/22 07:00 78 18 11/11/22 07:00 147/89 H 11/11/22 08:25 11/11/22 08:00 76 11/11/22 07:10 36.9 C 77 18 147/93 H 11/11/22 06:00 66 17 142/89 H 11/11/22 05:00 63 15 117/76 11/11/22 04:00 37 C 76 18 121/76 11/11/22 03:00 69 16 116/71 11/11/22 02:00 71 14 132/81 11/11/22 01:00 77 13 131/86 Pulse Ox O2 Del Method O2 Flow Rate 11/11/22 11:59 11/11/22 11:16 90 11/11/22 08:00 11/11/22 08:00 11/11/22 07:31 11/11/22 07:31 90 Room Air 11/11/22 07:30 90 Room Air 11/11/22 07:05 11/11/22 07:05 93 Room Air 11/11/22 07:00 93 Room Air 11/11/22 07:00 11/11/22 08:25 Room Air 11/11/22 08:00 11/11/22 07:10 93 Nasal Cannula 2 11/11/22 06:00 94 Nasal Cannula 2 11/11/22 05:00 95 Nasal Cannula 2 11/11/22 04:00 94 Nasal Cannula 2 11/11/22 03:00 92 Nasal Cannula 2 11/11/22 02:00 94 Nasal Cannula 2 11/11/22 01:00 94 Nasal Cannula 2
--- NOTE | 2022-11-11 13:05 | Discharge Summary ---
Date of Service November 11, 2022 Admission HPI Per Admitting Provider Mr. Grover is an elderly male who presents to Dr. Zee's vascular surgery clinic today as a new patient in consultation for severe left ICA stenosis noted on recent imaging. 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 He states when he went for his follow-up visit in June, she advised him that the ultrasound showed significant narrowing his neck artery she was going to have him undergo a CTA. The CTA confirmed the severe stenosis, and he was referred here for possible surgical intervention. Patient denies any history of CVA. He specifically denies amaurosis, extremity weakness numbness or tingling, difficulty speaking or swallowing, facial droop, sudden onset confusion. He also denies headache, fever, recent illness, chest pain, shortness of breath, abdominal pain, nausea, vomiting, rest pain, claudication, nonhealing wounds or ulcers, other complaints. He is very active, and fly fishes regularly. He does state that his in July of this year, and he has been dealing with this. Additionally he was recently diagnosed with prostate cancer which is an operable, but he is taking oral medications and will undergo radiation at a later time. Review of systems: A total of 14 systems were reviewed and are negative aside from what is related in his HPI Imaging: Patient underwent a CTA of the neck performed at [facility] 07/25/2022 which demonstrates a severe stenosis of the left ICA which is near occlusive. His right ICA demonstrates about 50% stenosis. Admission Exam Per Admitting Provider Physical Exam Constitutional: In general patient is a healthy-appearing well-nourished well- developed elderly male no distress. He is alert and oriented without any focal deficits. His trachea is midline. His left neck demonstrates a very faint high-pitched bruit. His heart is regular, his lungs are clear. His abdomen soft nontender with normoactive bowel sounds in all 4 quadrants. Brachial radial and left femoral pulses +3. Right femoral pulse is +2. His lower extremities a pulses are +1. He has brisk capillary refill and no sign of distal ischemia. He has no edema. Principal Diagnosis 1. s/p L TCAR 2. LICAS Discharge Exam Constitutional WD/WN, vitals as above no acute distress Neck trachea midline Respiratory normal respiratory effort, lungs clear to auscultation normal respiratory effort; no respiratory distress Auscultation: lungs clear to auscultation bilaterally and + diminished lung sounds Cardiovascular Rate/Rhythm: regular rate and regular rhythm Vessels: + carotid bruit, posterior tibial pulses present, dorsalis pedis pulses present and radial pulses present; + abnormal peripheral pulses Extremities: normal capillary refill Gastrointestinal (Abdomen) Inspection/Auscultation: abdomen normal to inspection and normal bowel sounds Percussion/Palpation: abdomen soft; abdomen nontender Musculoskeletal no cyanosis or clubbing, extremities motor strength 5/5 Spine: normal cervical ROM Skin no rashes, warm and dry + incision (L neck) Neurologic moves all extremities and awake; no focal motor deficits and not confused Psychiatric A+Ox3, euthymic affect Discharge Data Allergies Allergy/AdvReac Type Severity Reaction Status Date / Time No Known Drug Allergies Allergy Verified 11/10/22 06:21 Consultations 11/10/22 11:36 Consult Dental Tech Routine Procedures Performed Operation Date: 11/10/22 08:00 Actual Procedures p Left Transcarotid Artery Revascularization(Left) - Arnulfo Zee MD Ordered Studies 11/10/22 06:55 EV angio carotid cerv LT Routine Hospital Course (1) Carotid artery stenosis: Pt now POD #1 after uncomplicated L TCAR procedure. No new neuro complaints/sx. Discussed with Dr Zee. OK for d/c home today. Will see in office in 2 weeks. Total Time Total Time Spent Total Time Spent (In Minutes): 0 Discharge Plan Discharge Items Patient Disposition: Home - Self-Care Reason For Visit: Left Internal Carotid Artery Stenosis Discharge Diagnosis: 1. s/p LEFT TRANSCAROTID ARTERY REVASCULARIZATION 2. LEFT ICA STENOSIS Activity: Per Instructions section Non-emergency contact: Primary Care Provider and Surgeon Call non-emergency contact if: you have any medication questions, your symptoms worsen, your pain is not controlled, your pain is concerning for you, you have a fever, your wound has increased redness and your wound has increased drainage Follow-up/Referrals: Arnulfo Zee MD [Physician] - (Follow up with Dr Zee or Bibi Sherwood PA-C in 2 weeks.) Sera Hart CRNP [Primary Care Provider] - (Follow up with your PCP within 2 weeks) Diet: Heart Healthy Addtl Attending Provider Instructions: SPECIAL CARE INSTRUCTIONS: Medications: * Continue to take Aspirin, Plavix, and Atorvastatin. DO NOT STOP THESE MEDICATIONS WITHOUT SPEAKING TO DR ZEE'S OFFICE. Incision Care: * You may shower, but do not rub incision. You may let the warm soapy water run over it. Be sure to dry the incision well after bathing. * Do not shave directly over the incision until it is healed. * DO NOT IMMERSE THE INCISION IN A TUB/POOL/etc. UNTIL HEALED. Restrictions: * Do not drive for at least one week or if you are still taking any narcotic pain medication. * Do not lift anything heavier than a gallon of milk for one week after going home. Possible Complications: * Numbness - It is normal to have some numbness around the incision. Numbness can extend beyond the incision to areas of the neck, ear and face. The numbness is due to bruising of nerves during the surgery and will gradually improve over a period of months. * Hoarseness/Difficulty Speaking and Swallowing - The bruising of nerves in the neck can also cause a hoarse voice, difficulty speaking or swallowing. This may improve over time, HOWEVER, if it continues for more than a few days please contact our office ([phone]). * Excessive Swelling - There will be some swelling immediately after surgery which usually resolves within one week. If you notice that the swelling is getting worse, notify your surgeon ([phone]). * Drainage/Bleeding - If there is any drainage or bleeding, it should be a very small amount (less than a teaspoon per day). If you have excessive bleeding or drainage from the incision, call your surgeon ([phone]) right away. ACTIVATION OF EMERGENCY MEDICAL SYSTEM: Call 911, immediately, if you experience any of the following: Warning Signs and Symptoms of Stroke: * Sudden numbness or weakness of the face, arm or leg, especially on one side of the body * Sudden confusion, trouble speaking or understanding * Sudden trouble seeing in one or both eyes * Sudden trouble walking, dizziness, loss of balance or coordination * Sudden severe headache with no cause Do not delay calling 911 if you experience any warning signs or symptoms of a stroke. Delay in seeking medical attention may affect what treatments can be given to you. Risk Factors for Stroke: You can reduce your chances of stroke by working with your medical provider to adopt a healthy lifestyle. Some specific ways to lower your chance of stroke are: * If you are a smoker, now is the time to stop smoking cigarettes * If you are diabetic, improve the control of your blood sugars * Avoid excessive amounts of alcohol * Control high blood pressure * Lose weight if you are overweight * Be sure to lead an active lifestyle * Eat a healthy diet low in salt, cholesterol and fat You should know about other risk factors for stroke that you are unable to control. These include: * Age 55 years or older * Male gender * Certain racial groups: , or / * Family History of Stroke, Mini stroke or Heart Attack * Sickle Cell Disease You will be receiving a call from the Vascular Surgery Nurse after you are discharged. FOLLOW UP VISIT: It is important for you to keep your follow up appointments with your medical provider. Keep any scheduled doctor appointments. Pending Studies at Discharge: No Stand-Alone Forms: My [facility] [employer], Smoking Cessation Medications and DC Order Prescriptions: New oxycodone-acetaminophen [Percocet] 5-325 mg Tablet 1 - 2 tab PO Q6H PRN (Reason: pain) Qty: 20 0RF Continued atorvastatin 80 mg tablet 80 mg PO HS nitroglycerin 0.4 mg tablet, sublingual 0.4 mg sublingual Q5M PRN (Reason: Chest Pain) Rx Instructions: do not exceed 3 doses per episode sildenafil 50 mg tablet 50 mg PO DAILY PRN (Reason: Sexual Activity) Rx Instructions: administer 30 minutes to 4 hours before activity allopurinol 100 mg tablet 100 mg PO QAM aspirin [Adult Aspirin Regimen] 81 mg tablet,delayed release (DR/EC) 81 mg PO QAM metoprolol succinate [Toprol XL] 50 mg tablet extended release 24 hr 50 mg PO HS multivitamin Tablet 1 tab PO QAM krill oil 500 mg capsule 1 mg PO QAM vitamin B complex [B Complex-Vitamin B12] Tablet 1 tab PO QAM ascorbic acid (vitamin C) 1,000 mg capsule 1 g PO QAM lisinopril 20 mg Tablet 20 mg PO BID clopidogrel [Plavix] 75 mg Tablet 75 mg PO QAM abiraterone 500 mg Tablet 1,000 mg PO QAM Rx Instructions: must be taken on empty stomach, at least 1 hr before or 2 hrs after a meal/ food potassium 99 mg Tablet 99 mg PO QAM amlodipine 5 mg Tablet 5 mg PO DAILY Discharge Orders: Discharge Order (Routine); Ordered 11/11/22 Ordered By: Bibi Sherwood Admission Data Admit Date/Time: 11/10/22 09:38 Attending Provider: Arnulfo Zee Admit Provider: Arnulfo Zee Primary Care Provider: Sera Hart Other Providers: Harjeet Randall ; Jesus Manuel [place] ; Chris Chacon ; Bijan Berry ; Narendra Urbina ; Kevon Chaudhari ; Shiv West ; Bradley Garay ; Paulette Hammer Other Interventions: Discharge Summary Assessment (RN) Last Done: 11/11/22 11:16
== END 2022-11-11 14:17 | disposition home or self-care (01) | DRG 36 ==
LOC: ASU 05:50 → 1E 09:38
PROC: EV.TCAR (2022-11-10 08:00)

== ENCOUNTER 2023-12-17 14:09 | Inpatient (IN) ==
[2023-12-17] MEDS ORDERED: LABETALOL HCL IV 5 MG/ML 20ML IV STA (14:46)
--- NOTE | 2023-12-17 14:49 | Emergency Department Note ---
Impression & Plan Atrial fibrillation with rapid ventricular response, Elevated brain natriuretic peptide (BNP) level ED Provider Note HISTORY OF PRESENT ILLNESS: Patient is a 73-year-old male presenting with shortness of breath. Patient reports he has been feeling short of breath and like his heart is racing for the last week. He has been on beta-blockers and Eliquis for history of A-fib. He had a near syncopal episode 4 days ago when he got up out of his recliner. His leather shaver referred him to the emergency department for further evaluation. Patient denies any DVT or PE history. Denies any chest pain. He does report he feels like his heart is racing. Reports he is gone poor sleep over the last few days secondary to feeling so short of breath and being unable to get comfortable in his recliner. ROS: as above PHYSICAL EXAM: Constitutional: Patient appears in no acute distress. HENT: Head: Normocephalic and atraumatic. Eyes: EOMI, PERRL Mouth/Throat: Mucous membranes moist. Neck: Trachea midline. Neck supple. Cardiovascular: Tachycardic with irregularly irregular rhythm. No murmurs, rubs or gallops. Intact distal pulses. Pulmonary/Chest: No respiratory distress. Breath sounds clear and equal bilaterally. No wheezes or rales. Abdominal: Abdomen soft, no tenderness, rebound or guarding. Musculoskeletal: No edema, tenderness or deformity noted. Skin: Warm and dry. No rash, erythema, pallor or cyanosis Psychiatric: Appropriate mood and affect for situation. Neurological: Alert and keenly responsive. CN II-XII grossly intact, moving all extremities equally and fully. MDM: - Vitals signs showed tachycardia. - History obtained via patient. History as above. - Chronic conditions affecting care: HTN; CAD (S/p PCI); paroxysmal Afib; HLD - Differential diagnoses include, but are not limited to: ACS; pneumonia; dysrhythmia; electrolyte abnormality; PE; dehydration - Order placed for continuous cardiac monitoring. At this time, monitor showed rate of 141 bpm with irregularly irregular rhythm, per my interpretation. - External medical records reviewed. Cardiology visit note dated 12/11/2023 was reviewed. Patient's metoprolol succinate was increased to 75 mg daily. He was given Eliquis 5 mg twice daily and samples were given at the clinic. - EKG interpreted by myself showed atrial fibrillation. Rate tachycardic at 134 bpm. QT 284. No acute ischemic changes. - Laboratory workup interpreted by myself showed normal WBC; stable electrolytes; normal troponin; elevated BNP (681) - CXR negative for pneumonia, per my interpretation - Discussed case with patient's leather shaver and handicraft or hobby shop manager, Dr. Mart at 14:50. He placed order for echocardiogram. Recommends beta- marques usage for HR control until echo can be completed to determine EF. Recommended admission to hospitalist service, with plan for cardioversion tomorrow. - 5 mg IV metoprolol ordered. Minimal improvement in heart rate on reassessment. - Discussion was had with special education case manager about patient's case and need for admission - Hospitalist consulted for admission - Patient admitted to [facility]ist service for further evaluation and management. I have personally spent 38 minutes of critical care time in the direct management of this patient. This includes bedside care, interpretation of diagnostic studies, and testing, discussion with consultants, patient, and family members, and other required patient management activities. This 38 minutes is in excess of all separately billable procedures. ASSESSMENT AND PLAN: Diagnosis: Atrial fibrillation with RVR; elevated BNP Plan: admit Past Med/Surg History Problem List (Updated 12/17/23 @ 16:02 by Anisa Vasquez MD) Elevated brain natriuretic peptide (BNP) level (Acute) Atrial fibrillation with rapid ventricular response (Acute) Benign essential hypertension Carotid artery stenosis CAD (coronary artery disease) 2013 > stents x3 PAF (paroxysmal atrial fibrillation) Carotid artery stenosis Unifocal PVCs Stented coronary artery Elevated PSA Heart disease Gout Vitamin D deficiency HTN (hypertension) Hyperlipidemia Prostate cancer (Chronic) Medical History Aortic stenosis CAD (coronary artery disease) Myocardial infarction Surgical History Hx of colonoscopy Hx of cardiac catheterization Hx of heart artery stent History of hip surgery History of prostate biopsy History of tonsillectomy and adenoidectomy History of arthroscopic knee surgery History of back surgery Family History Father Pancreatic cancer Mother No problems noted. Sister No problems noted. Sister No problems noted. Brother No problems noted. Daughter No problems noted. Social History Smoking Status: Never smoker Second Hand Exposure: No; Do You Dip or Chew Tobacco: No; Hx Alcohol Use: Yes Alcohol type: beer, wine and hard liquor Alcohol Intake Frequency: Monthly or Less Hx Substance Use: No Preferred Language: Georgian Communication Ability: Effective Visual Impairment: Limited Hearing Ability: Normal Moving Picture Operator Required: No Beliefs That Will Affect Care: None marital status: Current Living Situation: Alone current occupational status: employed current occupation: [employer] How many Children do You have: 1 Feels Safe at Home: Yes Childhood Exposure to Second-Hand Smoke: No Diet: regular caffeine: Yes (1 cup of coffee daily) during the past year weight has: remained stable Dental Care, Regularly: Yes Assistive Devices: None Allergies Allergies Allergy/AdvReac Type Severity Reaction Status Date / Time No Known Drug Allergies Allergy Verified 12/11/23 12:55 Home Meds Home Medications Medication Instructions Recorded Confirmed allopurinol 100 mg tablet 100 mg PO QAM 02/20/22 12/11/23 ascorbic acid (vitamin C) 1,000 mg 1 g PO QAM 02/20/22 12/11/23 capsule atorvastatin 80 mg tablet 80 mg PO HS 02/20/22 12/11/23 metoprolol succinate 50 mg 50 mg PO HS 02/20/22 12/11/23 tablet,extended release 24 hr (Toprol XL) multivitamin 1 tab PO QAM 02/20/22 12/11/23 nitroglycerin 0.4 mg sublingual 0.4 mg sublingual Q5M PRN Chest 02/20/22 12/11/23 tablet Pain vitamin B complex (B 1 tab PO QAM 02/20/22 12/11/23 Complex-Vitamin B12 tablet) colchicine 0.6 mg tablet (Colcrys) 0.6 mg PO DAILY PRN 10/08/23 12/11/23 lisinopril 20 mg tablet 10 mg PO BID 10/08/23 12/11/23 omega-3 339 mg-dha and epa 314 1 cap PO DAILY 10/08/23 12/11/23 mg-fish and krill oil 500 mg capsule sildenafil 50 mg tablet 25 mg PO DAILY PRN 10/08/23 12/11/23 tamsulosin 0.4 mg capsule 0.4 mg PO DAILY 10/08/23 12/11/23 Previous Rx's Medication Instructions Recorded apixaban 5 mg tablet (Eliquis) 5 mg PO BID #180 tabs 12/11/23 metoprolol succinate 25 mg 25 mg PO DAILY #30 tabs 12/11/23 tablet,extended release 24 hr Results & Data (ED) Vital Signs Vital Signs - 24 hr 12/17/23 14:17 12/17/23 14:36 12/17/23 14:36 Temperature 36.7 C Temperature Source Temporal Artery Scan Pulse Rate 133 H 128 H Pulse Rate [Apical] Pulse Rhythm Irregular Respiratory Rate 18 18 Respiratory Effort / Characteristics Non-Labored Spontaneous Respiratory Depth Normal Blood Pressure 120/80 Blood Pressure [Left Arm] Blood Pressure Mean 93 Blood Pressure Mean [Left Arm] Blood Pressure Position Sitting Blood Pressure Position [Left Arm] Pulse Oximetry 97 94 Oxygen Delivery Method Room Air Room Air Room Air Sepsis Recent Fever Within 48 Hours No Sepsis New/Unexplained Change in Mental Status No Sepsis Action Taken by Nursing No Action Required 12/17/23 14:51 12/17/23 15:10 12/17/23 16:02 Temperature Temperature Source Pulse Rate 130 H 121 H Pulse Rate [Apical] 131 H Pulse Rhythm Respiratory Rate 18 Respiratory Effort / Characteristics Non-Labored Spontaneous Respiratory Depth Normal Blood Pressure 108/82 Blood Pressure [Left Arm] 106/86 Blood Pressure Mean Blood Pressure Mean [Left Arm] 92 Blood Pressure Position Blood Pressure Position [Left Arm] Lying Pulse Oximetry 97 Oxygen Delivery Method Sepsis Recent Fever Within 48 Hours Sepsis New/Unexplained Change in Mental Status Sepsis Action Taken by Nursing Laboratory Data 12/17/23 14:57 12/17/23 14:57 Lab Results 12/17/23 Range/Units 14:57 WBC 5.65 (4.8-10.8) K/ul RBC 4.72 (4.70-6.10) M/uL Hgb 13.4 L (14.0-18.0) g/dl Hct 42.0 (42.0-52.0) % MCV 89.0 (80.0-100.0) fL MCH 28.4 (25.0-34.0) pg MCHC 31.9 L (32.0-36.0) g/dL RDW Std Deviation 56.6 H (36.4-46.3) fL RDW Coeff of Carrol 17.2 H (11.5-14.5) % Plt Count 181 (130-400) K/uL MPV 11.0 (9.4-12.4) fL Immature Gran % (Auto) 0.0 % Neut % (Auto) 60.4 % Lymph % (Auto) 23.9 % [place] % (Auto) 10.6 % Eos % (Auto) 4.6 % Baso % (Auto) 0.5 % Neut # (Auto) 3.41 (1.40-6.50) K/uL Lymph # (Auto) 1.35 (1.20-3.40) K/uL [place] # (Auto) 0.60 H (0.11-0.59) K/uL Eos # (Auto) 0.26 (0.00-0.50) K/uL Baso # (Auto) 0.03 (0.00-0.20) K/uL Immature Gran # (Auto) 0.00 L (0.01-0.20) K/uL PT Cancelled INR Cancelled APTT Cancelled PTT Ratio Cancelled Sodium 139 (136-145) mmol/L Potassium 4.3 (3.5-5.1) mmol/L Chloride 107 (98-107) mmol/L Carbon Dioxide 23 (21-32) mmol/L Anion Gap 9 (3-11) BUN 27 H (6-23) mg/dl Creatinine 1.01 (0.6-1.4) mg/dl Est Cr Clr Drug Dosing 63.6 ml/min Est GFR ( Amer) 85.7 ml/min Est GFR (Non-Af Amer) 74.0 ml/min BUN/Creatinine Ratio 26.7 H (10-20) Glucose 94 (70-99(Fasting)) mg/dl Calcium 9.6 (8.6-10.3) mg/dl Magnesium 2.0 (1.7-2.4) mg/dl Total Bilirubin 1.0 (0.2-1.0) mg/dl AST 24 (13-39) U/L ALT 30 (7-52) U/L Alkaline Phosphatase 91 (34-104) U/L Troponin I High Sens 15.0 (0-20) pg/ml B-Natriuretic Peptide 681 H (0-100) pg/ml Total Protein 7.7 (6.0-8.3) gm/dl Albumin 4.6 (3.4-5.0) gm/dl Globulin 3.1 (2.5-4.0) gm/dl Albumin/Globulin Ratio 1.5 (0.9-2) TSH 1.838 (0.300-4.500) uIu/ml Administered Medications Discontinued Medications Metoprolol Tartrate (Metoprolol Tartrate 1 Mg/Ml Vial) 5 mg IV NOW STA Stop: 12/17/23 15:43 Last Admin: 12/17/23 16:02 Dose: 5 mg Documented By: SHARRI Imaging Data Radiologist's Impression: Chest X-Ray 12/17/23 14:20 XR chest 1V not portable CLINICAL HISTORY: Chest pain, nonspecific TECHNIQUE: Single frontal radiograph of the chest was obtained. Comparison: Comparison is made to chest radiograph 10/21/2022 FINDINGS: No lines and tubes are seen. The cardiomediastinal silhouette is normal. The lungs are clear. No evidence of pleural effusion or pneumothorax. IMPRESSION: No acute chest disease. ACT 112: Negative or not required by law. Electronically signed by: Deion Ellis M.D. 12/17/2023 4:21 PM Discharge Plan Visit Data Chief Complaint: Cardiac Assessment Stated Complaint: AFIB, REF BY DOC ED Provider: Anisa Vasquez Discharge Problem: Atrial fibrillation with rapid ventricular response, Elevated brain natriuretic peptide (BNP) level Forms Stand Alone Forms: My [facility] [employer] Prescriptions Prescriptions: No Action atorvastatin 80 mg tablet 80 mg PO HS nitroglycerin 0.4 mg tablet, sublingual 0.4 mg sublingual Q5M PRN (Reason: Chest Pain) Rx Instructions: do not exceed 3 doses per episode allopurinol 100 mg tablet 100 mg PO QAM metoprolol succinate [Toprol XL] 50 mg tablet extended release 24 hr 50 mg PO HS multivitamin Tablet 1 tab PO QAM vitamin B complex [B Complex-Vitamin B12] Tablet 1 tab PO QAM ascorbic acid (vitamin C) 1,000 mg capsule 1 g PO QAM Eliquis 5 mg tablet 5 mg PO BID Qty: 180 3RF metoprolol succinate 25 mg tablet extended release 24 hr 25 mg PO DAILY Qty: 30 11RF colchicine [Colcrys] 0.6 mg tablet 0.6 mg PO DAILY PRN sildenafil 50 mg tablet 25 mg PO DAILY PRN Rx Instructions: administer 30 minutes to 4 hours before activity omega [id number]-fish oil-krill 339 mg-314 mg- 500 mg capsule 1 cap PO DAILY tamsulosin 0.4 mg capsule 0.4 mg PO DAILY lisinopril 20 mg tablet 10 mg PO BID Referrals Referrals: Sera Hart CRNP [Primary Care Provider] -
[2023-12-17 15:20] LABS: Basophils # (auto) 0.03 K/uL (0.00-0.20); Basophils % (auto) 0.5 %; Eosinophils # (auto) 0.26 K/uL (0.00-0.50); Eosinophils % (auto) 4.6 %; Hemoglobin 13.4 g/dl (14.0-18.0); Lymphocytes # (auto) 1.35 K/uL (1.20-3.40); Lymphocytes % (auto) 23.9 %; Mean Corpuscular Hemoglobin 28.4 pg (25.0-34.0); Mean Corpuscular Hgb Conc 31.9 g/dL (32.0-36.0); Monocytes % (auto) 10.6 %; Neutrophils # (auto) 3.41 K/uL (1.40-6.50); Neutrophils % (auto) 60.4 %; Platelet Count 181 K/uL (130-400); RDW Coefficient of Variation 17.2 % (11.5-14.5); RDW Standard Deviation 56.6 fL (36.4-46.3); Red Blood Count 4.72 M/uL (4.70-6.10); White Blood Count 5.65 K/ul (4.8-10.8)
[2023-12-17 15:47] LABS: Albumin Globulin Ratio 1.5 (0.9-2); Albumin Level 4.6 gm/dl (3.4-5.0); BUN Creatinine Ratio 26.7 (10-20); Calcium 9.6 mg/dl (8.6-10.3); Creatinine Clr Calc Pharmacy 63.6 ml/min; Est GFR (African American) 85.7 ml/min; Globulin 3.1 gm/dl (2.5-4.0); Potassium 4.3 mmol/L (3.5-5.1); Total Protein 7.7 gm/dl (6.0-8.3)
[2023-12-17] MEDS: METOPROLOL TARTRATE 1 MG/ML VIAL IV STA (16:02)
[2023-12-17 16:03] LABS: Thyroid Stimulating Hormone 1.838 uIu/ml (0.300-4.500)
--- NOTE | 2023-12-17 16:22 | XRay Report ---
XR chest 1V not portable CLINICAL HISTORY: Chest pain, nonspecific TECHNIQUE: Single frontal radiograph of the chest was obtained. Comparison: Comparison is made to chest radiograph 10/21/2022 FINDINGS: No lines and tubes are seen. The cardiomediastinal silhouette is normal. The lungs are clear. No evid ence of pleural effusion or pneumothorax. IMPRESSION: No acute chest disease. ACT 112: Negative or not required by law. Electronically signed by: Deion Ellis M.D. 12/17/2023 4:21 PM
[2023-12-17 16:41] LABS: INR 1.1 (0.9-1.1); Partial Thromboplastin Time 28 Seconds (21-31); Prothrombin Time 11.4 Seconds (9.0-12.0)
--- NOTE | 2023-12-17 16:42 | History & Physical Report ---
Date of Service December 17, 2023 Assessment & Plan (1) Atrial fibrillation with rapid ventricular response: Plan: Admit to the PCU on telemetry and pulse oximetry Currently in A-fib RVR with heart rate in the 110s at rest, heart rate would jump into the [id number] with exertion Was recently diagnosed with new onset A-fib RVR while in the cardiology clinic on 12/11/[address] Mart Was started on Eliquis on 12/11/2023, his aspirin was held at this time, and his dose of metoprolol was increased for better rate control Despite these changes his symptoms have persisted making it difficult to complete simple tasks Electrolytes are stable today, high-sensitivity troponin is within normal limits, no acute findings on chest x-ray, TSH is within normal limits Patient will be taken for cardioversion tomorrow with Dr. Mart Status post 5 mg IV Lopressor in the ED, will add as needed IV Lopressor 5 mg Q5M for sustained heart rate greater than 140, max 2 doses Home Eliquis for DVT prophylaxis Heart healthy diet with 2 g sodium restriction until midnight then n.p.o. in preparation for cardioversion tomorrow AM CBC, CMP, mag, PT/INR (2) SOB (shortness of breath): Plan: Patient has been experiencing shortness of breath and dyspnea on exertion since his A-fib diagnosis on 12/11/2023 Chest x-ray is negative for acute findings Has been stable on room air Monitor for improvement after cardioversion tomorrow (3) Benign essential hypertension: Plan: Stable Will hold lisinopril for now as his blood pressure has been low-normal with his A-fib RVR Will continue home metoprolol (4) CAD (coronary artery disease): Plan: Continue statin (5) Carotid artery stenosis: Plan: Continue Plavix Patient had been on Plavix and aspirin after his left TCAR with Dr. Ventura, however his aspirin was held when he was started on Eliquis on 12/11/2023. Plan Patient was discussed with Dr. Barbour at the time of admission History of Present Illness Chief Complaint: A-fib with RVR, shortness of breath Primary Care Provider: BALDO Madrid Kevin is a 73-year-old male with a past medical history significant for recently diagnosed A-fib with RVR while in the cardiology clinic on 12/11/2023, carotid artery stenosis gnosis status post left TCAR with Dr. Ventura on 11/10/2022, hypertension, CAD, who presented to the [facility] ED on 12/17/2023 for ongoing A-fib with RVR and increased shortness of breath. Patient was recently seen in the [facility] cardiology clinic on 12/11/2023 where he was found to be in new onset A-fib with RVR. His dose of metoprolol was increased, he was started on Eliquis, his aspirin was held due to starting Eliquis, and he was initially planned for scheduled cardioversion with Dr. Mart. On arrival to the ED today he was noted to be in A-fib with RVR in the 130s, but was otherwise stable. Labs were significant for BUN of 27, high-sensitivity troponin within normal limits, BNP of 681 (no previous to compare to), and TSH within normal limits. Chest x-ray was read as negative for acute findings. Prior to admission the patient was given 5 mg IV Lopressor. We are asked to admit the patient as he will go for cardioversion tomorrow (12/18/2023) with Dr. Mart. Patient was sitting in bed in no acute distress at the time of exam with his bedside history was obtained from both they confirm the above history. Patient has been sleeping in his recliner the past 2 nights due to increased shortness of breath. Due to symptoms persisting this morning his called Dr. Mart who advised him to come to the ED for further assessment. Patient denies recent fever, chills, chest pain, cough, nausea/vomiting, abdominal pain, dysuria, hematuria, melena, lower extremity swelling, and recent trauma. Currently while in A-fib with RVR he is having increased dyspnea on exertion, his shortness of breath at rest is mild. He has not missed recent doses of his metoprolol or Eliquis. He understands he will be going for cardioversion tomorrow with Dr. Mart. He is a full code and his is his POA. Please refer to Dr. Barbour's attestation for any changes to the treatment plan Allergies Allergy/AdvReac Type Severity Reaction Status Date / Time No Known Drug Allergies Allergy Verified 12/17/23 17:27 Home Medications Medication Instructions Recorded Confirmed Type allopurinol 100 mg tablet 100 mg PO QAM 02/20/22 12/17/23 History ascorbic acid (vitamin C) 1,000 mg 1 g PO QAM 02/20/22 12/17/23 History capsule atorvastatin 80 mg tablet 80 mg PO HS 02/20/22 12/17/23 History metoprolol succinate 50 mg 50 mg PO QAM 02/20/22 12/17/23 History tablet,extended release 24 hr (Toprol XL) multivitamin 1 tab PO QAM 02/20/22 12/17/23 History nitroglycerin 0.4 mg sublingual 0.4 mg sublingual Q5M PRN Chest 02/20/22 12/17/23 History tablet Pain vitamin B complex (B 1 tab PO QAM 02/20/22 12/17/23 History Complex-Vitamin B12 tablet) colchicine 0.6 mg tablet (Colcrys) 0.6 mg PO DAILY PRN Gout Flare 10/08/23 12/17/23 History lisinopril 20 mg tablet 0 mg PO BID 10/08/23 12/17/23 History omega-3 339 mg-dha and epa 314 1 cap PO DAILY 10/08/23 12/17/23 History mg-fish and krill oil 500 mg capsule sildenafil 50 mg tablet 25 mg PO DAILY PRN Sexual Activity 10/08/23 12/17/23 History tamsulosin 0.4 mg capsule 0.4 mg PO HS 10/08/23 12/17/23 History apixaban 5 mg tablet (Eliquis) 5 mg PO BID #180 tabs 12/11/23 12/17/23 Rx amlodipine 5 mg tablet 5 mg PO QAM 12/17/23 12/17/23 History clopidogrel 75 mg tablet 75 mg PO HS 12/17/23 12/17/23 History fexofenadine 180 mg tablet 180 mg PO QAM 12/17/23 12/17/23 History (Allergy Relief (fexofenadine)) potassium chloride 20 mEq 20 meq PO BID 12/17/23 12/17/23 History tablet,extended release(part/cryst) Past Med/Surg History Problem List Cardiomyopathy SOB (shortness of breath) Elevated brain natriuretic peptide (BNP) level (Acute) Atrial fibrillation with rapid ventricular response (Acute) Benign essential hypertension Carotid artery stenosis CAD (coronary artery disease) 2013 > stents x3 PAF (paroxysmal atrial fibrillation) Carotid artery stenosis Unifocal PVCs Stented coronary artery Elevated PSA Heart disease Gout Vitamin D deficiency HTN (hypertension) Hyperlipidemia Prostate cancer (Chronic) Medical History Aortic stenosis Mild per 04/2022 echo Myocardial infarction 2012- w/ cardio (Dr Kristina Ornelas) Surgical History Hx of colonoscopy Hx of cardiac catheterization 2012 Hx of heart artery stent 2012 > stents x3 History of hip surgery Left History of prostate biopsy Dr. Matthew Faye at [facility] History of tonsillectomy and adenoidectomy History of arthroscopic knee surgery History of back surgery x 5 surgeries after a skiing accident ~ 51 yrs ago Family History Father , Passed age 89 Pancreatic cancer Mother No problems noted. Sister No problems noted. Sister No problems noted. Brother No problems noted. Daughter No problems noted. 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 President Of Contracts Required: No Beliefs That Will Affect Care: None marital status: Current Living Situation: Alone Current Living Situation Comment: Lives at home alone current occupational status: employed current occupation: [employer] How many Children do You have: 1 Feels Safe at Home: Yes Childhood Exposure to Second-Hand Smoke: No Diet: regular caffeine: Yes (1 cup of coffee daily) during the past year weight has: remained stable Dental Care, Regularly: Yes Assistive Devices: None Physical Exam Physical Exam: Physical Exam: General: In no acute distress, stated age, well-nourished, good hygiene HEENT: Normocephalic, atraumatic, no scleral icterus, pupils around round, symmetrical, and reactive to light, moist mucus membranes, trachea midline, no thyromegaly Chest/Pulm: No respiratory distress, symmetrical chest expansion, clear breath sounds throughout Cardiac: irregular rate and rhythm, no murmurs noted Abdomen: Negative for ascites and bruising, normoactive bowel sounds, soft, non-tender to palpation throughout Musculoskeletal: Symmetrical and without signs of acute trauma, upper and lower extremities with full ROM, no atrophy, spasticity, or flaccidity Extremities: Radial, dorsalis pedis, and posterior tibial pulses are intact and symmetrical, no edema noted in the BL LE's Skin: Warm, dry, no rashes , lesions, or scars noted Neuro: Alert and oriented to person, place, month, year, and president, no focal defects, no tremors noted Psych: No acute distress, calm and cooperative during the exam Results & Data Results & Data Vital Signs (Past 12 Hours) Vital Signs Temp Pulse Pulse Resp BP BP Pulse Ox 12/17/23 16:02 121 H 108/82 12/17/23 15:10 131 H 18 106/86 97 12/17/23 14:51 130 H 12/17/23 14:36 128 H 18 94 12/17/23 14:36 12/17/23 14:17 36.7 C 133 H 18 120/80 97 O2 Del Method 12/17/23 16:02 12/17/23 15:10 12/17/23 14:51 12/17/23 14:36 Room Air 12/17/23 14:36 Room Air 12/17/23 14:17 Room Air Laboratory Results Abnormal lab results 12/17/23 Range/Units 14:57 Hgb 13.4 L (14.0-18.0) g/dl MCHC 31.9 L (32.0-36.0) g/dL RDW Std Deviation 56.6 H (36.4-46.3) fL RDW Coeff of Carrol 17.2 H (11.5-14.5) % [place] # (Auto) 0.60 H (0.11-0.59) K/uL Immature Gran # (Auto) 0.00 L (0.01-0.20) K/uL BUN 27 H (6-23) mg/dl BUN/Creatinine Ratio 26.7 H (10-20) B-Natriuretic Peptide 681 H (0-100) pg/ml Diagnostic Findings Chest X-Ray 12/17/23 14:20 XR chest 1V not portable CLINICAL HISTORY: Chest pain, nonspecific TECHNIQUE: Single frontal radiograph of the chest was obtained. Comparison: Comparison is made to chest radiograph 10/21/2022 FINDINGS: No lines and tubes are seen. The cardiomediastinal silhouette is normal. The lungs are clear. No evidence of pleural effusion or pneumothorax. IMPRESSION: No acute chest disease. ACT 112: Negative or not required by law. Electronically signed by: Deion Ellis M.D. 12/17/2023 4:21 PM ECG Additional Comments: Atrial fibrillation with rapid ventricular response Nonspecific ST abnormality Abnormal ECG When compared with ECG of 11-DEC-2023 13:03, (unconfirmed) No significant change was found Code Status & VTE Plan Code Status Full code VTE Prophylaxis Plan VTE Prophylaxis will be ordered: Yes Supervising Physician Co-Signing Physician Notes I personally saw and examined the patient. I verified all matthew points and agree with Ben Araujo PA-C with the following exceptions and/or additions: 73 year old male presents to the ER with a. fib RVR. In atrial fibrillation at least since Thursday. Associated shortness of breath on exertion. O/E HS increased rate, irregular rhythm, no murmurs, Chest CTAB, Abdo SNT A/P A. fib RVR - cardiology planning on cardioverting in the morning. Would avoid excessive rate control overnight. He appears to be comfortable at rest despite rates 120-140. PG Care Time/CCT Total # of Minutes Spent Total Time Spent with Patient: Total time spent is greater than 50% in coordination of care (as documented) at patient's floor/unit and/or counseling patient: Coding [place] [address] INT INP/OBS CARE 2/55MIN Patient Type Established Medical Decision Making Moderate Complexity Diagnoses Atrial fibrillation with rapid ventricular response I48.91 SOB (shortness of breath) R06.02 Benign essential hypertension I10 CAD (coronary artery disease) I25.10 Carotid artery stenosis I65.29
[2023-12-17] MEDS ORDERED: METOPROLOL TARTRATE 1 MG/ML VIAL IV PRN (16:57)
--- NOTE | 2023-12-17 17:14 | Cardiology Consultation ---
Date of Consultation December 17, 2023 Assessment & Plan (1) Cardiomyopathy: Today's echo demonstrates the patient has severely reduced EF, moderate mitral regurgitation, and unknown severity of aortic stenosis. Suspect the cardiomyopathy is secondary to A-fib with RVR uncontrolled for a long duration of time. I would NOT USE CALCIUM CHANNEL MARQUES. Control his heart rate with beta-marques and we will add digoxin IV. He has only mild volume overload at this time so I would not diurese. Hopefully, DC cardioversion and optimized medical therapy will improve his EF. Unfortunately, it is possible that the prostate medication (arbiraterone) is contributing to his cardiomyopathy/arrhythmia. He will likely need to be started on Entresto, plus or minus Jardiance, plus or minus spironolactone by the time of his discharge. Further recommendations pending evolution of his clinical course. (2) Atrial fibrillation with rapid ventricular response: This may be the sole reason for his cardiomyopathy. We intend for him to go for SYLVIA guided DC cardioversion tomorrow. Using metoprolol and digoxin only at this point. If he is unable to maintain sinus rhythm but does not have left atrial appendage clot then we could consider the addition of amiodarone and retry cardioversion later. He will remain on Eliquis 5 mg p.o. twice daily. Unknown duration of atrial fibrillation. Last "normal" EKG without atrial fibrillation present was from June 2022. (3) Benign essential hypertension: Blood pressure is at target at the moment. Continue metoprolol succinate 75 mg daily, and lisinopril 20 mg daily. We may need to reduce the lisinopril to all ow for additional medications to control his A-fib. (4) CAD (coronary artery disease): Severe multivessel disease with remote stenting. He has no angina and his troponin remains normal despite the fact that he is tachycardic. His echo shows global hypokinesis without regional wall motion abnormalities which would be more suggestive of myocardial ischemia. At this point, he will remain on guideline directed medical therapy for secondary prevention of coronary disease including low-dose aspirin, high intensity statin therapy with atorvastatin 80 mg daily, and metoprolol succinate ER 75 mg daily. (5) Hyperlipidemia: Patient is high risk. Continue a atorvastatin 80 mg daily. History of Present Illness Reason for Consultation: Atrial fibrillation with rapid ventricular response History of Present Illness This is a pleasant 73-year-old gentleman whom I saw for the first time last week. He carries a remote history of multivessel coronary disease having undergone multiple stents. Previously followed by Dr. Dallas and Dr. Austin in [place]. After the retired patient was seen by Dr. Ornelas briefly. I saw him in the office last week where I found him to have atrial fibrillation and rapid ventricular response. His only complaint at that time was mild fatigue. He was started on Eliquis 5 mg p.o. twice daily and his beta- marques was increased. Plan was made for him to undergo SYLVIA guided DC cardio version. Unfortunately, the patient has continued to be short of breath and fatigued. His energy level has really dropped and he is quite uncomfortable at home. Having difficulty sleeping. Therefore, he was brought to the emergency department today by his girlfriend who also happens to be a PROCESS SAFETY MANAGER. She did obtain an EKG for him on Thursday as I had requested. At that time he was in atrial fibrillation but his rate was better controlled although still tachycardic at that time. He has not done well and his SYLVIA cardioversion has not yet been scheduled. Today, he continues to deny any anginal chest pain heaviness or tightness. He is very fatigued, has a low energy level, has dyspnea with exertion but not at rest, denies syncope, near syncope, orthopnea, PND, racing heartbeat, and edema. Comorbid disease includes metastatic prostate cancer for which he takes arbiraterone, peripheral arterial disease with carotid stenosis status post TCAR (Dr. Ventura), hypertension, and dyslipidemia. Allergies Allergy/AdvReac Type Severity Reaction Status Date / Time No Known Drug Allergies Allergy Verified 12/17/23 17:27 Home Medications Medication Instructions Recorded Confirmed Type allopurinol 100 mg tablet 100 mg PO QAM 02/20/22 12/11/23 History ascorbic acid (vitamin C) 1,000 mg 1 g PO QAM 02/20/22 12/11/23 History capsule atorvastatin 80 mg tablet 80 mg PO HS 02/20/22 12/11/23 History metoprolol succinate 50 mg 50 mg PO HS 02/20/22 12/11/23 History tablet,extended release 24 hr (Toprol XL) multivitamin 1 tab PO QAM 02/20/22 12/11/23 History nitroglycerin 0.4 mg sublingual 0.4 mg sublingual Q5M PRN Chest 02/20/22 12/11/23 History tablet Pain vitamin B complex (B 1 tab PO QAM 02/20/22 12/11/23 History Complex-Vitamin B12 tablet) colchicine 0.6 mg tablet (Colcrys) 0.6 mg PO DAILY PRN 10/08/23 12/11/23 History lisinopril 20 mg tablet 10 mg PO BID 10/08/23 12/11/23 History omega-3 339 mg-dha and epa 314 1 cap PO DAILY 10/08/23 12/11/23 History mg-fish and krill oil 500 mg capsule sildenafil 50 mg tablet 25 mg PO DAILY PRN 10/08/23 12/11/23 History tamsulosin 0.4 mg capsule 0.4 mg PO DAILY 10/08/23 12/11/23 History apixaban 5 mg tablet (Eliquis) 5 mg PO BID #180 tabs 12/11/23 12/11/23 Rx metoprolol succinate 25 mg 25 mg PO DAILY #30 tabs 12/11/23 12/11/23 Rx tablet,extended release 24 hr Patient History Medical History Aortic stenosis Mild per 04/2022 echo Myocardial infarction 2012- Follows w/ cardio (Dr Kristina Ornelas) Surgical History Hx of colonoscopy Hx of cardiac catheterization 2012 Hx of heart artery stent 2012 > stents x3 History of hip surgery Left History of prostate biopsy Dr. Matthew Faye at [facility] History of tonsillectomy and adenoidectomy History of arthroscopic knee surgery History of back surgery x 5 surgeries after a skiing accident ~ 51 yrs ago Family History Father , Passed age 89 Pancreatic cancer Mother No problems noted. Sister No problems noted. Sister No problems noted. Brother No problems noted. Daughter No problems noted. Social History Smoking Status: Never smoker Second Hand Exposure: No; Do You Dip or Chew Tobacco: No; Hx Alcohol Use: Yes Alcohol type: beer, wine and hard liquor Alcohol Intake Frequency: Monthly or Less Hx Substance Use: No Preferred Language: Indian Communication Ability: Effective Visual Impairment: Limited Hearing Ability: Normal Bi Tri Operator Required: No Beliefs That Will Affect Care: None marital status: Current Living Situation: Alone current occupational status: employed current occupation: [employer] How many Children do You have: 1 Feels Safe at Home: Yes Childhood Exposure to Second-Hand Smoke: No Diet: regular caffeine: Yes (1 cup of coffee daily) during the past year weight has: remained stable Dental Care, Regularly: Yes Assistive Devices: None Review of Systems Review of Systems: Negative except as per HPI Physical Exam Constitutional: WD/WN, vitals as above (Elderly, no acute distress but he does appear ill.) Eyes: Extraocular muscles intact. Sclera are anicteric. ENMT: Oral mucosa is pink moist and intact. Neck: JVD 7 cm Respiratory: Bilateral crackles. Fair air movement. Cardiovascular: Irregular rhythm with a tachycardic rate. S4 gallop. Grade 2/6 systolic murmur. Trace to 1+ bilateral lower extremity edema Musculoskeletal: no cyanosis or clubbing, extremities motor strength 5/5 Neurologic: Cognition is intact. Speech is fluent. No focal deficits. Psychiatric: A+Ox3, euthymic affect Results & Data Vital Signs (Past 12 Hours) Vital Signs Temp Pulse Pulse Resp BP BP Pulse Ox 12/17/23 16:02 121 H 108/82 12/17/23 15:10 131 H 18 106/86 97 12/17/23 14:51 130 H 12/17/23 14:36 128 H 18 94 12/17/23 14:36 12/17/23 14:17 36.7 C 133 H 18 120/80 97 O2 Del Method 12/17/23 16:02 12/17/23 15:10 12/17/23 14:51 12/17/23 14:36 Room Air 12/17/23 14:36 Room Air 12/17/23 14:17 Room Air PG Care Time/CCT Total # of Minutes Spent Total Time Spent with Patient: Total time spent is greater than 50% in coordination of care (as documented) at patient's floor/unit and/or counseling patient: Coding Level of Care Code 09338 INT INP/OBS CARE 3/75MIN Diagnoses Cardiomyopathy I42.9 Atrial fibrillation with rapid ventricular response I48.91 Benign essential hypertension I10 CAD (coronary artery disease) I25.10 Hyperlipidemia E78.5 Time Spent (min) 75
--- NOTE | 2023-12-17 17:50 | Electrocardiogram Report ---
Test Reason : Blood Pressure : / mmHG Vent. Rate : 134 BPM Atrial Rate : 000 BPM P-R Int : 000 ms QRS Dur : 080 ms QT Int : 284 ms P-R-T Axes : 000 -21 036 degrees QTc Int : 424 ms Atrial fibrillation with rapid ventricular response Nonspecific ST abnormality Abnormal ECG When compared with ECG of 11-DEC-2023 13:03, (unconfirmed) No significant change was found Confirmed by Ramesh Oconnor ([id number]) on 12/17/2023 5:49:58 PM Referred By: Confirmed By:Mesfin Oconnor
--- NOTE | 2023-12-17 18:04 | XCELERA ---
[id number]
[2023-12-17] MEDS: ATORVASTATIN 40 MG TAB PO SCH (18:35)
[2023-12-17] MEDS: DIGOXIN 250 MCG in SYRINGE 9 ML IV STA (18:35)
[2023-12-17] MEDS: CLOPIDOGREL BISULFATE 75 MG TAB PO SCH (20:39)
[2023-12-17] MEDS: TAMSULOSIN HCL 0.4 MG CAP PO SCH (20:39)
[2023-12-17] MEDS ORDERED: ATORVASTATIN 40 MG TAB PO SCH (21:00)
[2023-12-17] MEDS ORDERED: APIXABAN 5 MG TABLET PO SCH (21:00)
[2023-12-17] MEDS: APIXABAN 5 MG TABLET PO SCH (22:37)
[2023-12-18 06:39] LABS: Basophils # (auto) 0.03 K/uL (0.00-0.20); Basophils % (auto) 0.7 %; Eosinophils % (auto) 4.7 %; Hematocrit (blood only) 35.4 % (42.0-52.0); Hemoglobin 11.6 g/dl (14.0-18.0); Immature Granulocytes # (auto) 0.01 K/uL (0.01-0.20); Immature Granulocytes % (auto) 0.2 %; Lymphocytes # (auto) 0.97 K/uL (1.20-3.40); Lymphocytes % (auto) 22.6 %; Mean Corpuscular Hemoglobin 28.5 pg (25.0-34.0); Mean Corpuscular Hgb Conc 32.8 g/dL (32.0-36.0); Mean Platelet Volume 10.3 fL (9.4-12.4); Monocytes # (auto) 0.49 K/uL (0.11-0.59); Monocytes % (auto) 11.4 %; Neutrophils # (auto) 2.59 K/uL (1.40-6.50); Neutrophils % (auto) 60.4 %; Platelet Count 158 K/uL (130-400); RDW Standard Deviation 54.4 fL (36.4-46.3); Red Blood Count 4.07 M/uL (4.70-6.10); White Blood Count 4.29 K/ul (4.8-10.8)
[2023-12-18 07:12] LABS: Albumin Globulin Ratio 1.7 (0.9-2); Albumin Level 3.8 gm/dl (3.4-5.0); Bilirubin,Total 1.1 mg/dl (0.2-1.0); Calcium 9.1 mg/dl (8.6-10.3); Creatinine Clr Calc Pharmacy 72.8 ml/min; Est GFR (African American) 91.2 ml/min; Est GFR (Non-African American) 78.7 ml/min; Globulin 2.3 gm/dl (2.5-4.0); Magnesium 1.8 mg/dl (1.7-2.4); Potassium 4.2 mmol/L (3.5-5.1); Total Protein 6.1 gm/dl (6.0-8.3)
[2023-12-18 07:14] LABS: INR 1.1 (0.9-1.1); Prothrombin Time 11.6 Seconds (9.0-12.0)
--- NOTE | 2023-12-18 08:01 | Anesthesiology Consultation ---
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 - Phoenix Mart MD, PhD Height/Weight Height: 5 ft 8 in Weight: 82.5 kg Allergies Allergy/AdvReac Type Severity Reaction Status Date / Time No Known Drug Allergies Allergy Verified 12/17/23 17:27 Medications Home Medications Medication Instructions Recorded Confirmed Last Taken allopurinol 100 mg tablet 100 mg PO QAM 02/20/22 12/17/23 12/17/23 ascorbic acid (vitamin C) 1,000 mg 1 g PO QAM 02/20/22 12/17/23 12/17/23 capsule atorvastatin 80 mg tablet 80 mg PO HS 02/20/22 12/17/23 12/16/23 metoprolol succinate 50 mg 50 mg PO QAM 02/20/22 12/17/23 12/17/23 tablet,extended release 24 hr (Toprol XL) multivitamin 1 tab PO QAM 02/20/22 12/17/23 12/17/23 nitroglycerin 0.4 mg sublingual 0.4 mg sublingual Q5M PRN Chest 02/20/22 12/17/23 Unknown tablet Pain vitamin B complex (B 1 tab PO QAM 02/20/22 12/17/23 12/17/23 Complex-Vitamin B12 tablet) colchicine 0.6 mg tablet (Colcrys) 0.6 mg PO DAILY PRN Gout Flare 10/08/23 12/17/23 Unknown lisinopril 20 mg tablet 0 mg PO BID 10/08/23 12/17/23 12/17/23 omega-3 339 mg-dha and epa 314 1 cap PO DAILY 10/08/23 12/17/23 12/17/23 mg-fish and krill oil 500 mg capsule sildenafil 50 mg tablet 25 mg PO DAILY PRN Sexual Activity 10/08/23 12/17/23 Unknown tamsulosin 0.4 mg capsule 0.4 mg PO HS 10/08/23 12/17/23 12/16/23 apixaban 5 mg tablet (Eliquis) 5 mg PO BID #180 tabs 12/11/23 12/17/23 12/17/23 amlodipine 5 mg tablet 5 mg PO QAM 12/17/23 12/17/23 12/17/23 clopidogrel 75 mg tablet 75 mg PO HS 12/17/23 12/17/23 12/16/23 fexofenadine 180 mg tablet 180 mg PO QAM 12/17/23 12/17/23 12/17/23 (Allergy Relief (fexofenadine)) potassium chloride 20 mEq 20 meq PO BID 12/17/23 12/17/23 12/17/23 tablet,extended release(part/cryst) Active Medications Generic Name Dose Route Start Last Admin Trade Name Freq PRN Reason Stop Dose Admin Apixaban 5 mg 12/17/23 21:00 12/17/23 22:37 Apixaban 5 Mg Tablet PO 01/16/24 20:59 5 mg BID ANDIE Administration Atorvastatin Calcium 80 mg 12/17/23 18:00 12/17/23 18:35 Atorvastatin 40 Mg Tab PO 01/16/24 17:59 80 mg QAM ANDIE Administration Clopidogrel Bisulfate 75 mg 12/17/23 21:00 12/17/23 20:39 Clopidogrel Bisulfate 75 Mg Tab PO 01/16/24 20:59 75 mg HS ANDIE Administration Tamsulosin HCl 0.4 mg 12/17/23 21:00 12/17/23 20:39 Tamsulosin Hcl 0.4 Mg Cap PO 01/16/24 20:59 0.4 mg HS ANDIE Administration NPO Date Last Intake of Fluids: 12/17/23 Time Last Intake of Fluids: 21:00 Date Last Intake of Solids: 12/17/23 Time Last Intake of Solids: 20:00 Past Medical History Medical History Aortic stenosis Mild per 04/2022 echo Myocardial infarction 2012- w/ cardio (Dr Kristina Ornelas) Exercise / Class Metabolic Activity III < 4 Walking/Shop/Light housework Past Family History Family History Father , Passed age 89 Pancreatic cancer Mother No problems noted. Sister No problems noted. Sister No problems noted. Brother No problems noted. Daughter No problems noted. Past Surgical History Surgical History Hx of colonoscopy Hx of cardiac catheterization 2012 Hx of heart artery stent 2013 > stents x3 History of hip surgery Left History of prostate biopsy Dr. Matthew Faye at [facility] History of tonsillectomy and adenoidectomy History of arthroscopic knee surgery History of back surgery x 5 surgeries after a skiing accident ~ 52 yrs ago Past Anesthesia History No Hx of Anesthesia Complications and No Family Hx of Anesthesia Complications History of PONV No Hx of PONV and No Hx of Motion Sickness Social History Smoking Status: Former smoker Do You Dip or Chew Tobacco: No Hx Alcohol Use: Yes Alcohol type: other alcohol intake frequency: holidays/special occasions only Hx Substance Use: No substance use type: does not use Physical Exam Vital Signs Last Vital Signs Temp 36.4 C L 12/18/23 03:20 Pulse 129 H 12/18/23 03:20 Resp 18 12/18/23 03:20 BP 111/77 12/18/23 03:20 Pulse Ox 97 12/18/23 03:20 O2 Del Method Room Air 12/18/23 03:20 Constitutional no acute distress ENMT Mouth: no chipped teeth and no loose teeth Thyromental Distance: > or= 3.5 Finger Breadths Mallampati Class: II Neck normal visual inspection and trachea midline; neck extension not limited Respiratory normal respiratory effort; no respiratory distress Auscultation: lungs clear to auscultation bilaterally; no crackles, no rhonchi and no wheezes Cardiovascular Rate/Rhythm: + tachycardic; + abnormal rhythm Heart Sounds: no gallop, no murmur and no cardiac rub Musculoskeletal Head/Neck/Chest: full ROM of neck Neurologic moves all extremities and awake Psychiatric Orientation: alert and oriented x 3 Testing Laboratory Results 12/18/23 06:09 12/18/23 06:09 PT 11.6 Seconds (9.0-12.0) 12/18/23 06:09 INR 1.1 (0.9-1.1) 12/18/23 06:09 APTT 28 Seconds (21-31) 12/17/23 16:00
[2023-12-18] MEDS: METOPROLOL TARTRATE 1 MG/ML VIAL IV STA (10:05)
[2023-12-18] MEDS ORDERED: AMIODARONE IV BOLUS & DRIP IV STA (10:28)
[2023-12-18] MEDS ORDERED: 0.2 MICRON FILTER SET 1 EACH IV STA (10:28)
[2023-12-18] MEDS ORDERED: STAT IV Infusion **Titration per Protocol STA (10:28)
[2023-12-18] MEDS: allopurinoL 100 MG TAB PO SCH (10:30)
[2023-12-18] MEDS: PHENYLEPHRINE 100MCG/ML 5ML SYR ONE (10:41)
[2023-12-18] MEDS: PROPOFOL IV EMULSION 10 MG/ML 20 ML VIAL IV ONE (10:41)
[2023-12-18] MEDS: LIDOCAINE 2% 2 ML VIAL/AMP(20MG/ML) INFIL ONE (10:41)
[2023-12-18] MEDS: BENZOCAINE/TETRACAIN/BUTAM 50 APPLN/5 GM CAN EXT ONE (10:41)
[2023-12-18] MEDS: SODIUM CHLORIDE 0.9% 500 ML IV STA (10:42)
[2023-12-18] MEDS: AMIODARONE 150MG / 100ML D5W IV ONE (10:42)
[2023-12-18] MEDS: METOPROLOL TARTRATE 1 MG/ML VIAL IV ONE (10:43)
[2023-12-18] MEDS: AMIODARONE / D5W 150 MG/100 ML BAG IV STA (10:45)
[2023-12-18] MEDS: AMIODARONE 360MG / 200ML D5W IV ONE (10:51)
[2023-12-18] MEDS: AMIODARONE / D5W 360 MG/200 ML BAG IV ONE (11:00)
--- NOTE | 2023-12-18 11:25 | Hospitalist Progress Note ---
Date of Service December 18, 2023 Assessment & Plan (1) Atrial fibrillation with rapid ventricular response: Plan: Admit to the PCU on telemetry and pulse oximetry Currently in A-fib RVR with heart rate in the 110s at rest, heart rate would jump into the [id number] with exertion Was recently diagnosed with new onset A-fib RVR while in the cardiology clinic on 12/11/[address] Mart Was started on Eliquis on 12/11/2023, his aspirin was held at this time, and his dose of metoprolol was increased for better rate control Despite these changes his symptoms have persisted making it difficult to complete simple tasks Electrolytes are stable today, high-sensitivity troponin is within normal limits, no acute findings on chest x-ray, TSH is within normal limits Patient will be taken for cardioversion tomorrow with Dr. Mart Status post 5 mg IV Lopressor in the ED, will add as needed IV Lopressor 5 mg Q5M for sustained heart rate greater than 140, max 2 doses Home Eliquis for DVT prophylaxis Heart healthy diet with 2 g sodium restriction until midnight then n.p.o. in preparation for cardioversion tomorrow AM CBC, CMP, mag, PT/INR 12/17 s/p cardioversion, was in NSR, but went into SVT vs Afib, converted to SR after iv Metoprolol (2) SOB (shortness of breath): Plan: Patient has been experiencing shortness of breath and dyspnea on exertion since his A-fib diagnosis on 12/11/2023 Chest x-ray is negative for acute findings Has been stable on room air Monitor for improvement after cardioversion tomorrow (3) Benign essential hypertension: Plan: Stable Will hold lisinopril for now as his blood pressure has been low-normal with his A-fib RVR Will continue home metoprolol (4) CAD (coronary artery disease): Plan: Continue statin (5) Carotid artery stenosis: Plan: Continue Plavix Patient had been on Plavix and aspirin after his left TCAR with Dr. Ventura, however his aspirin was held when he was started on Eliquis on 12/11/2023. Plan Patient was discussed with Dr. Barbour at the time of admission Admission and Anticipated Discharge Date Admission Date: December 17, 2023 Subjective patient underwent cardioversion, had a short run SVT vs AFIB 180-190 bpm, converted to sinus rhythm after 5 mg IV Lopressor Review of Systems Review of Systems: All systems reviewed & are unremarkable except as noted in Subjective Physical Exam Physical Exam: head atraumatic neck supple chest CTA b/l heart tachy abdomen soft, nt, nd, bs present extremities no edema neuro alert, awake, oriented times 3 Results & Data Results & Data Vital Signs (Past 12 Hours) Vital Signs Temp Pulse Pulse Resp BP BP BP 12/18/23 10:49 86 12/18/23 10:48 36.8 C 88 16 94/63 L 12/18/23 10:32 85 98/66 L 12/18/23 10:17 90 96/63 L 12/18/23 10:07 89 110/70 12/18/23 10:05 178 H 114/79 12/18/23 10:02 175 H 96/68 L 12/18/23 09:52 182 H 116/82 12/18/23 09:49 192 H 114/82 12/18/23 08:50 82 14 96/67 L 12/18/23 08:45 90 14 94/72 L 12/18/23 08:40 87 14 95/64 L 12/18/23 08:35 37.1 C 83 14 93/70 L 12/18/23 08:03 36.6 C 110 H 14 110/89 12/18/23 03:20 36.4 C L 129 H 18 111/77 Pulse Ox O2 Del Method O2 Flow Rate 12/18/23 10:49 12/18/23 10:48 97 Room Air 12/18/23 10:32 12/18/23 10:17 12/18/23 10:07 12/18/23 10:05 12/18/23 10:02 12/18/23 09:52 12/18/23 09:49 12/18/23 08:50 97 Room Air 12/18/23 08:45 97 Room Air 12/18/23 08:40 99 Oxymask 4 12/18/23 08:35 98 Oxymask 4 12/18/23 08:03 96 Room Air 12/18/23 03:20 97 Room Air PG Care Time/CCT Total # of Minutes Spent Total Time Spent with Patient: Total time spent is greater than 50% in coordination of care (as documented) at patient's floor/unit and/or counseling patient: Coding Level of Care Code 16924 SUB INP/OBS CARE 2/35MIN Diagnoses Atrial fibrillation with rapid ventricular response I48.91 SOB (shortness of breath) R06.02 Benign essential hypertension I10 CAD (coronary artery disease) I25.10 Carotid artery stenosis I65.29
--- NOTE | 2023-12-18 11:45 | Cardioversion ---
Date of Service December 18, 2023 PG Electrical Cardioversion Rp Electrical Cardioversion Report Procedure performed: Cardioversion Indication: Atrial fibrillation Staff repair tech: Ramesh Oconnor MD Procedure in detail: The patient was informed of the risks benefits and alternatives to the intended procedure. He understood such which proceed. He was taken to the cardiac catheterization suite holding area. A general anesthetic was administered by the Anesthesiology Service. Once appropriately anesthetized, the patient was cardioverted using 200 joules delivered in a biphasic fashion. This returned the patient to sinus rhythm. The patient tolerated procedure well, there were no immediate complications. Patient was neurologically intact subsequent to the procedure. Impression: Successful cardioversion from atrial fibrillation to normal sinus rhythm Coding Level of Care Code 39384 CARDIOVERSION, ELECTIVE Additional Codes Electrical Cardioversion Report ([id number])
[2023-12-18] MEDS: METOPROLOL SUCC 25MG EXT REL TAB PO SCH (11:47)
[2023-12-18] MEDS: DIGOXIN 250 MCG in SYRINGE 9 ML IV STA (13:30)
[2023-12-18] MEDS: lisinopril 10 MG TAB PO SCH (13:30)
--- NOTE | 2023-12-18 13:31 | Anesthesiology Progress Note ---
Date of Service December 18, 2023 Anesthesia Post Procedure Vital Signs Vital Signs: Temp Pulse Pulse Resp BP BP BP 12/18/23 10:49 86 12/18/23 10:48 36.8 C 88 16 94/63 L 12/18/23 10:32 85 98/66 L 12/18/23 10:17 90 96/63 L 12/18/23 10:07 89 110/70 12/18/23 10:05 178 H 114/79 12/18/23 10:02 175 H 96/68 L 12/18/23 09:52 182 H 116/82 12/18/23 09:49 192 H 114/82 12/18/23 08:50 82 14 96/67 L 12/18/23 08:45 90 14 94/72 L 12/18/23 08:40 87 14 95/64 L 12/18/23 08:35 37.1 C 83 14 93/70 L 12/18/23 08:03 36.6 C 110 H 14 110/89 12/18/23 03:20 36.4 C L 129 H 18 111/77 12/17/23 23:21 36.5 C 120 H 16 99/64 L 12/17/23 22:47 108 H 12/17/23 20:45 16 125/86 12/17/23 19:33 36.4 C L 124 H 18 120/88 12/17/23 18:53 128 H 115/88 12/17/23 18:35 130 H 12/17/23 17:06 128 H 18 98/75 L 12/17/23 16:02 121 H 108/82 12/17/23 15:10 131 H 18 106/86 12/17/23 14:51 130 H 12/17/23 14:36 128 H 18 12/17/23 14:36 12/17/23 14:17 36.7 C 133 H 18 120/80 Pulse Ox O2 Del Method O2 Flow Rate 12/18/23 10:49 12/18/23 10:48 97 Room Air 12/18/23 10:32 12/18/23 10:17 12/18/23 10:07 12/18/23 10:05 12/18/23 10:02 12/18/23 09:52 12/18/23 09:49 12/18/23 08:50 97 Room Air 12/18/23 08:45 97 Room Air 12/18/23 08:40 99 Oxymask 4 12/18/23 08:35 98 Oxymask 4 12/18/23 08:03 96 Room Air 12/18/23 03:20 97 Room Air 12/17/23 23:21 94 Room Air 12/17/23 22:47 12/17/23 20:45 96 Room Air 12/17/23 19:33 97 Room Air 12/17/23 18:53 12/17/23 18:35 12/17/23 17:06 95 Room Air 12/17/23 16:02 12/17/23 15:10 97 12/17/23 14:51 12/17/23 14:36 94 Room Air 12/17/23 14:36 Room Air 12/17/23 14:17 97 Room Air Transfer of Care Handoff Completed per policy Notes Mental Status: alert / awake / arousable and participated in evaluation Patient Amnestic to Procedure: Yes Nausea / Vomiting: adequately controlled Pain: adequately controlled Airway Patency, RR, SpO2: stable & adequate BP & HR: stable & adequate Hydration State: stable & adequate Anesthetic Complications: no major complications apparent
--- NOTE | 2023-12-18 16:50 | Cardiology Progress Note ---
Date of Service December 18, 2023 Assessment & Plan (1) Cardiomyopathy: Plan: Unclear etiology. Hopefully this is secondary to the atrial fibrillation and now that he has been converted and rate controlled his EF will eventually improved. In the meantime, he will continue with metoprolol succinate ER, lisinopril, and if he becomes fluid overload Lasix will be added to his regimen. Plan outpatient follow-up echo in 1 to 3 months. LifeVest fitment will be balbina rrow. He will be able to be discharged following fitment. (2) Atrial fibrillation with rapid ventricular response: Plan: Currently in sinus rhythm. He did require brief treatment with amiodarone. He will remain on metoprolol succinate ER and anticoagulation with Eliquis 5 mg p.o. twice daily. (3) Benign essential hypertension: Plan: Blood pressure is well-controlled at this time. Continue current medical regimen. (4) CAD (coronary artery disease): Plan: No angina and troponin was normal. Guideline directed medical therapy with Plavix, metoprolol succinate, lisinopril, and a atorvastatin. Current blood pressure and heart rate are at target. (5) Hyperlipidemia: Plan: Patient is high risk. High intensity statin therapy ongoing with a atorvastatin 80 mg daily. Plan LifeVest fit meant tomorrow. Patient would then be appropriate for discharge. I will follow-up with him within 1 to 3 weeks of discharge. He will follow-up with his primary care provider next week. That appointment has already been scheduled. Admission and Anticipated Discharge Date Admission Date: December 17, 2023 Subjective Patient underwent SYLVIA guided DC cardioversion earlier today. He is maintaining sinus rhythm at this time. He denies any chest pain or shortness of breath. Tolerating his current medical regimen. We discussed discharge with a LifeVest given his severely reduced EF at this time. We also discussed reassessing his EF after at least 30 days but probably 3 months on optimized medical therapy. He will follow-up with me in 2 to 3 weeks. He and his girlfriend are in agreement. Review of Systems Review of Systems: Negative except as per HPI Physical Exam Constitutional: WD/WN, vitals as above Eyes: Extraocular muscles intact. Sclera are anicteric. ENMT: Oral mucosa is pink moist and intact. Neck: No JVD Respiratory: Clear to auscultation bilaterally. No wheezing, rhonchi, or rales appreciated fair air movement. Cardiovascular: Regular rate and rhythm. S4 gallop. Grade 2/6 systolic murmur. No edema Musculoskeletal: no cyanosis or clubbing, extremities motor strength 5/5 Neurologic: Cognition is intact. Speech is fluent. No focal deficits. Psychiatric: A+Ox3, euthymic affect Results & Data Vital Signs (Past 12 Hours) Vital Signs Temp Pulse Pulse Pulse Resp BP BP 12/18/23 15:42 36.6 C 80 18 12/18/23 10:49 86 12/18/23 10:48 36.8 C 88 16 94/63 L 12/18/23 10:32 85 98/66 L 12/18/23 10:17 90 96/63 L 12/18/23 10:07 89 110/70 12/18/23 10:05 178 H 114/79 12/18/23 10:02 175 H 96/68 L 12/18/23 09:52 182 H 116/82 12/18/23 09:49 192 H 114/82 12/18/23 08:50 82 14 12/18/23 08:45 90 14 12/18/23 08:40 87 14 12/18/23 08:35 37.1 C 83 14 12/18/23 08:03 36.6 C 110 H 14 BP Pulse Ox O2 Del Method O2 Flow Rate 12/18/23 15:42 100/71 94 Room Air 12/18/23 10:49 12/18/23 10:48 97 Room Air 12/18/23 10:32 12/18/23 10:17 12/18/23 10:07 12/18/23 10:05 12/18/23 10:02 12/18/23 09:52 12/18/23 09:49 12/18/23 08:50 96/67 L 97 Room Air 12/18/23 08:45 94/72 L 97 Room Air 12/18/23 08:40 95/64 L 99 Oxymask 4 12/18/23 08:35 93/70 L 98 Oxymask 4 12/18/23 08:03 110/89 96 Room Air PG Care Time/CCT Total # of Minutes Spent Total Time Spent with Patient: Total time spent is greater than 50% in coordination of care (as documented) at patient's floor/unit and/or counseling patient: Coding Level of Care Code 55765 SUB INP/OBS CARE 3/50MIN Diagnoses Cardiomyopathy I42.9 Atrial fibrillation with rapid ventricular response I48.91 Benign essential hypertension I10 CAD (coronary artery disease) I25.10 Hyperlipidemia E78.5
[2023-12-18] MEDS: AMIODARONE / D5W 360 MG/200 ML BAG IV SCH (17:07)
--- NOTE | 2023-12-18 17:15 | Electrocardiogram Report ---
Test Reason : Blood Pressure : / mmHG Vent. Rate : 082 BPM Atrial Rate : 082 BPM P-R Int : 164 ms QRS Dur : 084 ms QT Int : 386 ms P-R-T Axes : 080 -25 045 degrees QTc Int : 450 ms Sinus rhythm with frequent Premature ventricular complexes Otherwise normal ECG When compared with ECG of 17-DEC-2023 14:30, Sinus rhythm has replaced Atrial fibrillation Vent. rate has decreased BY 52 BPM Confirmed by Ramesh Oconnor ([id number]) on 12/18/2023 5:15:11 PM Referred By: Phoenix Mart Confirmed By:Mesfin Oconnor
--- NOTE | 2023-12-18 17:17 | Electrocardiogram Report ---
Test Reason : Blood Pressure : / mmHG Vent. Rate : 184 BPM Atrial Rate : 182 BPM P-R Int : 000 ms QRS Dur : 076 ms QT Int : 258 ms P-R-T Axes : 000 -16 -86 degrees QTc Int : 451 ms Supraventricular tachycardia Nonspecific ST and T wave abnormality Abnormal ECG When compared with ECG of 18-DEC-2023 08:39, (unconfirmed) Premature ventricular complexes are no longer Present Vent. rate has increased BY [address] now depressed in Inferior leads ST now depressed in Anterolateral leads Nonspecific T wave abnormality, worse in Lateral leads Confirmed by Ramesh Oconnor ([id number]) on 12/18/2023 5:16:32 PM Referred By: Phoenix Mart Confirmed By:Mesfin Oconnor
--- NOTE | 2023-12-18 19:09 | XCELERA ---
[id number] [id number]
[2023-12-19 06:47] LABS: Basophils # (auto) 0.03 K/uL (0.00-0.20); Basophils % (auto) 0.6 %; Eosinophils # (auto) 0.19 K/uL (0.00-0.50); Eosinophils % (auto) 3.6 %; Hemoglobin 12.1 g/dl (14.0-18.0); Immature Granulocytes # (auto) 0.02 K/uL (0.01-0.20); Immature Granulocytes % (auto) 0.4 %; Lymphocytes % (auto) 22.5 %; Mean Corpuscular Hemoglobin 28.6 pg (25.0-34.0); Mean Corpuscular Hgb Conc 32.7 g/dL (32.0-36.0); Mean Corpuscular Volume 87.5 fL (80.0-100.0); Mean Platelet Volume 10.7 fL (9.4-12.4); Monocytes # (auto) 0.55 K/uL (0.11-0.59); Monocytes % (auto) 10.3 %; Neutrophils # (auto) 3.35 K/uL (1.40-6.50); Neutrophils % (auto) 62.6 %; Platelet Count 156 K/uL (130-400); RDW Coefficient of Variation 17.2 % (11.5-14.5); Red Blood Count 4.23 M/uL (4.70-6.10); White Blood Count 5.34 K/ul (4.8-10.8)
[2023-12-19 07:38] LABS: INR 1.1 (0.9-1.1); Prothrombin Time 11.4 Seconds (9.0-12.0)
--- NOTE | 2023-12-19 08:08 | XRay Report ---
XR chest 1V portable HISTORY: 73 years-old Male increased SOB acute shortness of breath COMPARISON: 12/17/2023 chest radiograph, PET CT 01/28/2023 TECHNIQUE: AP view of the chest FINDINGS: Cardiac silhouette is mildly enlarged. No pneumothorax, pleural effusion, airspace consolidation or p ulmonary edema. Bones appear grossly intact. IMPRESSION: No acute process. ACT 112: Negative or not required by law. The above report was generated using voice recognition software. It may contain grammatical, syntax o r spelling errors. Electronically signed by: Jared Russell M.D. 12/19/2023 8:06 AM
[2023-12-19 08:09] LABS: Albumin Globulin Ratio 1.5 (0.9-2); BUN Creatinine Ratio 24.3 (10-20); Bilirubin,Total 0.6 mg/dl (0.2-1.0); Calcium 9.2 mg/dl (8.6-10.3); Creatinine Clr Calc Pharmacy 65.4 ml/min; Globulin 2.6 gm/dl (2.5-4.0); Potassium 4.2 mmol/L (3.5-5.1); Total Protein 6.6 gm/dl (6.0-8.3)
[2023-12-19 08:14] LABS: Magnesium 1.8 mg/dl (1.7-2.4)
--- NOTE | 2023-12-19 08:29 | XRay Report ---
XR chest 1V portable HISTORY: 73 years-old Male sob acute shortness of breath COMPARISON: 12/18/2023 TECHNIQUE: AP view of the chest FINDINGS: Mild cardiomegaly with pulmonary vascular congestion. Lungs are otherwise clear. Surgical clips proje ct over the left clavicle. Bones appear grossly intact. IMPRESSION: Cardiomegaly with pulmonary vascular congestion. ACT 112: Negative or not required by law. The above report was generated using voice recognition software. It may contain grammatical, syntax o r spelling errors. Electronically signed by: Jared Russell M.D. 12/19/2023 8:27 AM
[2023-12-19] MEDS: FUROSEMIDE INJ 20 MG/2 ML VIAL IV ONE ×2 (08:42→10:52)
--- NOTE | 2023-12-19 13:22 | Cardiology Progress Note ---
Date of Service December 19, 2023 Assessment & Plan (1) Cardiomyopathy: Plan: Unclear etiology. Continue metoprolol succinate and lisinopril (currently on hold due to mild hypotension). Could consider the addition of spironolactone and an SG LT 2 inhibitor, but we could also simply monitor him now that he is back in sinus rhythm and hopefully with improved rhythm/rate control we will see improvement in the LV function. (2) Atrial fibrillation with rapid ventricular response: Plan: Currently in sinus rhythm. One episode of high heart rates yesterday morning. I think this was an SVT. This is likely reentrant in nature. This was not atrial fibrillation. However, given his high likelihood of recurrent atrial fibrillation and the need to maintain sinus rhythm for improvement of his agnes tricle we did start amiodarone. Will convert the intravenous form to oral today. Continue apixaban 5 mg twice daily. (3) Benign essential hypertension: Plan: Blood pressure is well-controlled at this time. Continue current medical regimen. (4) CAD (coronary artery disease): Plan: No angina and troponin was normal. Guideline directed medical therapy with Plavix, metoprolol succinate, lisinopril, and a atorvastatin. Current blood pressure and heart rate are at target. (5) Hyperlipidemia: Plan: Patient is high risk. High intensity statin therapy ongoing with a atorvastatin 80 mg daily. Plan Life vest was fitted today. Metoprolol and lisinopril currently being held due to mild hypotension. Patient received intravenous Lasix we can continue intravenous Lasix monitoring his renal function and electrolytes closely. At the time of discharge she would likely benefit from an oral dose on a daily basis. Admission and Anticipated Discharge Date Admission Date: December 17, 2023 Subjective Overnight the patient developed some significant breathing difficulty. I would describe this as significant orthopnea or paroxysmal nocturnal dyspnea. He required CPAP for brief period and did undergo a diuresis with improvement in his symptoms. Still feels somewhat short of breath with activity. Occasionally he feels like he needs to take a deep breath. No chest pain. No sense of palpitation. No dizziness or lightheadedness. Review of Systems Review of Systems: Per HPI Physical Exam Constitutional: WD/WN, vitals as above Eyes: Extraocular muscles intact. Sclera are anicteric. ENMT: Oral mucosa is pink moist and intact. Neck: No JVD Respiratory: Some crackles in the bases bilaterally. Normal respiratory effort. No expiratory wheezing. Cardiovascular: Regular rate and rhythm. S4 gallop. Grade 2/6 systolic murmur. No edema Musculoskeletal: no cyanosis or clubbing, extremities motor strength 5/5 Neurologic: Cognition is intact. Speech is fluent. No focal deficits. Psychiatric: A+Ox3, euthymic affect Results & Data Vital Signs (Past 12 Hours) Vital Signs Temp Pulse Pulse Resp BP Pulse Ox O2 Del Method 12/19/23 12:04 Room Air 12/19/23 10:07 78 105/72 97 Room Air 12/19/23 07:37 36.5 C 70 18 97/68 L 98 Room Air 12/19/23 03:18 67 12 99 12/19/23 02:39 36.7 C 62 20 90/64 L 98 CPAP FiO2 12/19/23 12:04 12/19/23 10:07 12/19/23 07:37 12/19/23 03:18 30 12/19/23 02:39 Laboratory Results Abnormal Lab Results 12/19/23 05:33 WBC 5.34 RBC 4.23 L Hgb 12.1 L Hct 37.0 L MCV 87.5 MCH 28.6 MCHC 32.7 RDW Std Deviation 55.0 H RDW Coeff of Carrol 17.2 H Plt Count 156 MPV 10.7 Immature Gran % (Auto) 0.4 Neut % (Auto) 62.6 Lymph % (Auto) 22.5 Gaines % (Auto) 10.3 Eos % (Auto) 3.6 Baso % (Auto) 0.6 Neut # (Auto) 3.35 Lymph # (Auto) 1.20 Gaines # (Auto) 0.55 Eos # (Auto) 0.19 Baso # (Auto) 0.03 Immature Gran # (Auto) 0.02 PT 11.4 INR 1.1 Sodium 137 Potassium 4.2 Chloride 106 Carbon Dioxide 23 Anion Gap 8 BUN 26 H Creatinine 1.07 Est Cr Clr Drug Dosing 65.4 Est GFR ( Amer) 80.0 Est GFR (Non-Af Amer) 69.0 BUN/Creatinine Ratio 24.3 H Glucose 106 H Calcium 9.2 Magnesium 1.8 Total Bilirubin 0.6 D AST 17 ALT 23 Alkaline Phosphatase 78 Total Protein 6.6 Albumin 4.0 Globulin 2.6 Albumin/Globulin Ratio 1.5 PG Care Time/CCT Total # of Minutes Spent Total Time Spent with Patient: Total time spent is greater than 50% in coordination of care (as documented) at patient's floor/unit and/or counseling patient: Coding Level of Care Code 28077 SUB INP/OBS CARE 2/35MIN Diagnoses Cardiomyopathy I42.9 Atrial fibrillation with rapid ventricular response I48.91 Benign essential hypertension I10 CAD (coronary artery disease) I25.10 Hyperlipidemia E78.5
--- NOTE | 2023-12-19 15:52 | Hospitalist Progress Note ---
Date of Service December 19, 2023 Assessment & Plan (1) Atrial fibrillation with rapid ventricular response: Plan: Admit to the PCU on telemetry and pulse oximetry Currently in A-fib RVR with heart rate in the 110s at rest, heart rate would jump into the [id number] with exertion Was recently diagnosed with new onset A-fib RVR while in the cardiology clinic on 12/11/[address] Mart Was started on Eliquis on 12/11/2023, his aspirin was held at this time, and his dose of metoprolol was increased for better rate control Despite these changes his symptoms have persisted making it difficult to complete simple tasks Electrolytes are stable today, high-sensitivity troponin is within normal limits, no acute findings on chest x-ray, TSH is within normal limits Patient will be taken for cardioversion tomorrow with Dr. Mart Status post 5 mg IV Lopressor in the ED, will add as needed IV Lopressor 5 mg Q5M for sustained heart rate greater than 140, max 2 doses Home Eliquis for DVT prophylaxis Heart healthy diet with 2 g sodium restriction until midnight then n.p.o. in preparation for cardioversion tomorrow AM CBC, CMP, mag, PT/INR 12/17 cardioverted yesterday, in NSR , completed IV Amiodarone load 12/18 in NSR, Amiodarone 400 mg bid , on Eliquis (2) SOB (shortness of breath): Plan: Patient has been experiencing shortness of breath and dyspnea on exertion since his A-fib diagnosis on 12/11/2023 Chest x-ray is negative for acute findings Has been stable on room air Monitor for improvement after cardioversion tomorrow (3) Benign essential hypertension: Plan: Stable Will hold lisinopril for now as his blood pressure has been low-normal with his A-fib RVR Will continue home metoprolol (4) CAD (coronary artery disease): Plan: Continue statin (5) Carotid artery stenosis: Plan: Continue Plavix Patient had been on Plavix and aspirin after his left TCAR with Dr. Ventura, however his aspirin was held when he was started on Eliquis on 12/11/2023. (6) Cardiomyopathy: Plan: probably secondary to Afib with RVR , cardioverted to NSR severely reduced EF needs life vest (7) Acute systolic (congestive) heart failure: Plan: reports SOB , vascular congestion on CXR started on Lasix was on CPAP at night Admission and Anticipated Discharge Date Admission Date: December 17, 2023 Subjective Overnight the patient developed some significant breathing difficulty. I would describe this as significant orthopnea or paroxysmal nocturnal dyspnea. He required CPAP for brief period and did undergo a diuresis with improvement in his symptoms. Still feels somewhat short of breath with activity. Occasionally he feels like he needs to take a deep breath. No chest pain. No sense of palpitation. No dizziness or lightheadedness. Review of Systems Review of Systems: All systems reviewed & are unremarkable except as noted in Subjective Physical Exam Physical Exam: head atraumatic neck supple chest CTA b/l heart tachy abdomen soft, nt, nd, bs present extremities no edema neuro alert, awake, oriented times 3 Results & Data Results & Data Vital Signs (Past 12 Hours) Vital Signs Temp Pulse Resp BP Pulse Ox O2 Del Method 12/19/23 12:04 Room Air 12/19/23 10:07 78 105/72 97 Room Air 12/19/23 07:37 36.5 C 70 18 97/68 L 98 Room Air Laboratory Results Abnormal lab results 12/19/23 Range/Units 05:33 RBC 4.23 L (4.70-6.10) M/uL Hgb 12.1 L (14.0-18.0) g/dl Hct 37.0 L (42.0-52.0) % RDW Std Deviation 55.0 H (36.4-46.3) fL RDW Coeff of Carrol 17.2 H (11.5-14.5) % BUN 26 H (6-23) mg/dl BUN/Creatinine Ratio 24.3 H (10-20) Glucose 106 H (70-99(Fasting)) mg/dl PG Care Time/CCT Total # of Minutes Spent Total Time Spent with Patient: Total time spent is greater than 50% in coordination of care (as documented) at patient's floor/unit and/or counseling patient: Coding Level of Care Code 39770 SUB INP/OBS CARE 2/35MIN Diagnoses Atrial fibrillation with rapid ventricular response I48.91 SOB (shortness of breath) R06.02 Benign essential hypertension I10 CAD (coronary artery disease) I25.10 Carotid artery stenosis I65.29 Cardiomyopathy I42.9 Acute systolic (congestive) heart failure I50.21
[2023-12-19] MEDS: AMIODARONE 200 MG TAB PO SCH (19:03)
[2023-12-20 07:43] LABS: Basophils # (auto) 0.04 K/uL (0.00-0.20); Basophils % (auto) 0.8 %; Hematocrit (blood only) 38.8 % (42.0-52.0); Hemoglobin 12.9 g/dl (14.0-18.0); Immature Granulocytes # (auto) 0.01 K/uL (0.01-0.20); Immature Granulocytes % (auto) 0.2 %; Lymphocytes # (auto) 0.94 K/uL (1.20-3.40); Mean Corpuscular Hemoglobin 28.5 pg (25.0-34.0); Mean Corpuscular Hgb Conc 33.2 g/dL (32.0-36.0); Mean Corpuscular Volume 85.8 fL (80.0-100.0); Mean Platelet Volume 10.7 fL (9.4-12.4); Monocytes # (auto) 0.56 K/uL (0.11-0.59); Monocytes % (auto) 11.3 %; Neutrophils # (auto) 3.19 K/uL (1.40-6.50); Neutrophils % (auto) 64.7 %; Platelet Count 162 K/uL (130-400); RDW Coefficient of Variation 16.8 % (11.5-14.5); RDW Standard Deviation 53.2 fL (36.4-46.3); Red Blood Count 4.52 M/uL (4.70-6.10); White Blood Count 4.94 K/ul (4.8-10.8)
[2023-12-20 08:31] LABS: Prothrombin Time 11.3 Seconds (9.0-12.0)
[2023-12-20 08:34] LABS: Albumin Globulin Ratio 1.5 (0.9-2); Albumin Level 4.2 gm/dl (3.4-5.0); Bilirubin,Total 1.1 mg/dl (0.2-1.0); Calcium 9.4 mg/dl (8.6-10.3); Creatinine Clr Calc Pharmacy 64.6 ml/min; Est GFR (African American) 86.8 ml/min; Est GFR (Non-African American) 74.9 ml/min; Globulin 2.8 gm/dl (2.5-4.0); Magnesium 1.9 mg/dl (1.7-2.4)
--- NOTE | 2023-12-20 09:53 | Discharge Summary ---
Date of Service December 20, 2023 Admission HPI Per Admitting Provider Kevin is a 73-year-old male with a past medical history significant for recently diagnosed A-fib with RVR while in the cardiology clinic on 12/11/2023, carotid artery stenosis gnosis status post left TCAR with Dr. Ventura on 11/10/2022, hypertension, CAD, who presented to the [facility] ED on 12/17/2023 for ongoing A-fib with RVR and increased shortness of breath. Patient was recently seen in the [facility] cardiology clinic on 12/11/2023 where he was found to be in new onset A-fib with RVR. His dose of metoprolol was increased, he was started on Eliquis, his aspirin was held due to starting Eliquis, and he was initially planned for scheduled cardioversion with Dr. Mart. On arrival to the ED today he was noted to be in A-fib with RVR in the 130s, but was otherwise stable. Labs were significant for BUN of 27, high-sensitivity troponin within normal limits, BNP of 681 (no previous to compare to), and TSH within normal limits. Chest x-ray was read as negative for acute findings. Prior to admission the patient was given 5 mg IV Lopressor. We are asked to admit the patient as he will go for cardioversion tomorrow (12/18/2023) with Dr. Mart. Patient was sitting in bed in no acute distress at the time of exam with his bedside history was obtained from both they confirm the above history. Patient has been sleeping in his recliner the past 2 nights due to increased shortness of breath. Due to symptoms persisting this morning his called Dr. Mart who advised him to come to the ED for further assessment. Patient denies recent fever, chills, chest pain, cough, nausea/vomiting, abdominal pain, dysuria, hematuria, melena, lower extremity swelling, and recent trauma. Currently while in A-fib with RVR he is having increased dyspnea on exertion, his shortness of breath at rest is mild. He has not missed recent doses of his metoprolol or Eliquis. He understands he will be going for cardioversion tomorrow with Dr. Mart. He is a full code and his is his POA. patient was successfully cardioverted, started on amiodarone iv , transitioned to po, he developed acute systolic heart failure, was given IV Lasix 40 mg , reports feeling better today, life vest in place, due to low BP will hold off ABBY, Metoprolol, Farxiga or Spironolactone, K is 4 , will d/c on Amiodarone, Eliquis, Lasix, meds should be adjusted as outpatient, if BP is better Please refer to Dr. Barbour's attestation for any changes to the treatment plan Principal Diagnosis afib with RVR Discharge Exam head atraumatic neck supple chest CTA b/l heart tachy abdomen soft, nt, nd, bs present extremities no edema neuro alert, awake, oriented times 3 Discharge Data Allergies Allergy/AdvReac Type Severity Reaction Status Date / Time No Known Drug Allergies Allergy Verified 12/17/23 17:27 Consultations 12/17/23 14:36 Consult Anesthesiology Stat 12/17/23 14:48 Consult Cardiology Routine 12/17/23 16:04 ED Decision to Admit Stat Procedures Performed Operation Date: 12/18/23 07:45 Actual Procedures p Cardioversion - Ramesh Oconnor MD p Echo Transesophageal - Ramesh Oconnor MD s Echo Color Flow - Ramesh Oconnor MD s Echo Doppler Complete - Ramesh Oconnor MD Hospital Course (1) Atrial fibrillation with rapid ventricular response: Admit to the PCU on telemetry and pulse oximetry Currently in A-fib RVR with heart rate in the 110s at rest, heart rate would jump into the [id number] with exertion Was recently diagnosed with new onset A-fib RVR while in the cardiology clinic on 12/11/[address] Mart Was started on Eliquis on 12/11/2023, his aspirin was held at this time, and his dose of metoprolol was increased for better rate control Despite these changes his symptoms have persisted making it difficult to complete simple tasks Electrolytes are stable today, high-sensitivity troponin is within normal limits, no acute findings on chest x-ray, TSH is within normal limits Patient will be taken for cardioversion tomorrow with Dr. Mart Status post 5 mg IV Lopressor in the ED, will add as needed IV Lopressor 5 mg Q5M for sustained heart rate greater than 140, max 2 doses Home Eliquis for DVT prophylaxis Heart healthy diet with 2 g sodium restriction until midnight then n.p.o. in preparation for cardioversion tomorrow AM CBC, CMP, mag, PT/INR 12/17 cardioverted yesterday, in NSR , completed IV Amiodarone load 12/18 in NSR, Amiodarone 400 mg bid , on Eliquis 12/19 reports feeling much better after Lasix IV dose (2) SOB (shortness of breath): Patient has been experiencing shortness of breath and dyspnea on exertion since his A-fib diagnosis on 12/11/2023 Chest x-ray is negative for acute findings Has been stable on room air Monitor for improvement after cardioversion tomorrow (3) Benign essential hypertension: Stable Will hold lisinopril for now as his blood pressure has been low-normal with his A-fib RVR Will continue home metoprolol (4) CAD (coronary artery disease): Continue statin (5) Carotid artery stenosis: Continue Plavix Patient had been on Plavix and aspirin after his left TCAR with Dr. Ventura, however his aspirin was held when he was started on Eliquis on 12/11/2023. (6) Cardiomyopathy: probably secondary to Afib with RVR , cardioverted to NSR severely reduced EF needs life vest (7) Acute systolic (congestive) heart failure: reports SOB , vascular congestion on CXR started on Lasix was on CPAP at night Total Time Total Time Spent Total Time Spent (In Minutes): 45 Discharge Plan Discharge Items Patient Disposition: Home - Self-Care Reason For Visit: AFIB W/RVR Discharge Diagnosis: afib Activity: Resume your previous activity Non-emergency contact: Primary Care Provider and Web Content & Social Media Manager Call non-emergency contact if: you have any medication questions and your symptoms worsen Follow-up/Referrals: Sera Hart CRNP [Primary Care Provider] - Diet: Heart Healthy Fluids: 1500ml (6 cups) Addtl Attending Provider Instructions: follow up with Dr Oconnor Pending Studies at Discharge: No Stand-Alone Forms: [employer], Smoking Cessation Medications and DC Order Prescriptions: New amiodarone 400 mg tablet 400 mg PO BID 7 Days Qty: 14 0RF furosemide [Lasix] 20 mg tablet 20 mg PO DAILY Qty: 30 0RF Continued atorvastatin 80 mg tablet 80 mg PO HS nitroglycerin 0.4 mg tablet, sublingual 0.4 mg sublingual Q5M PRN (Reason: Chest Pain) Rx Instructions: do not exceed 3 doses per episode allopurinol 100 mg tablet 100 mg PO QAM multivitamin Tablet 1 tab PO QAM vitamin B complex [B Complex-Vitamin B12] Tablet 1 tab PO QAM ascorbic acid (vitamin C) 1,000 mg capsule 1 g PO QAM Eliquis 5 mg tablet 5 mg PO BID Qty: 180 3RF sildenafil 50 mg tablet 25 mg PO DAILY PRN (Reason: Sexual Activity) Rx Instructions: administer 30 minutes to 4 hours before activity omega 9-emj-lva-fish oil-krill 339 mg-314 mg- 500 mg capsule 1 cap PO DAILY tamsulosin 0.4 mg capsule 0.4 mg PO HS clopidogrel 75 mg tablet 75 mg PO HS fexofenadine [Allergy Relief (fexofenadine)] 180 mg tablet 180 mg PO QAM potassium chloride 20 mEq tablet,ER particles/crystals 20 meq PO BID Discontinued metoprolol succinate [Toprol XL] 50 mg tablet extended release 24 hr 50 mg PO QAM colchicine [Colcrys] 0.6 mg tablet 0.6 mg PO DAILY PRN (Reason: Gout Flare) lisinopril 20 mg tablet 0 mg PO BID Rx Instructions: Pt states he thought he took Lisinopril 10mg bid. When I asked if he split the tablet he stated that he did not that he just took a Lisinopril 10mg tablet. I explained to pt that mail order has been sending 20mg twice daily. Pt states that he now isn't sure if the tablets he has is 10mg or 20mg but he knows he does NOT split the tablet. Original Directions: 20mg by mouth twice daily amlodipine 5 mg tablet 5 mg PO QAM Admission Data Admit Date/Time: 12/17/23 16:46 Attending Provider: Glendy Jang Admit Provider: Walt Barbour Primary Care Provider: Sera Hart Other Providers: Rose Guillaume; Kalyn Tapia; Sara Cordova; Sera Mcdonough; Samir Piña; Kevin Franco; Lopez Agudelo; Domenic Baca; Sangita Baca; Jesus Manuel Madden; Patrizia Villalpando; Aj Neri; Scott Cruz; Jayden Templeton; Adal Awad; Ling Greene; Kevin Rodriguez; Daiana Rodriguez; Gregg Torres; Angle Turpin; Eduardo Moe; Kylah Stewart; Alexandra Early; Dane Kearns; Catarina Mercedes; Berta Pruitt; Catarina Dias; Velma Sheridan; Rashid Sheridan V; Pk Ayala; Kalyn Urena; Arnaud Ansari; Nancy Sánchez; Rashid Priest; Balta Greene; Deion Sanchez; Celia Carlson; Benita Chambers; Rashid Harman; Jus Velasco; Dian Milton; Harjeet Huynh; Estrella Richard; Payt Forbes; Phoenix Phan; Hernan Awad; Raven Thomas; Dorian Nur; Carlos Domínguez; Ramesh Fajardo; Samir Ogden Jr; Juanita Benson; Jeny Perez AViktor; Sheri Johnston; Dane Akbar; Domenic Werner; Cielo Flores SViktor; Jeny Vazquez A.; Ivan Stark; Marvin Perez; Matthew Armstrong; Wesley Vanegas; Guillermo Phillip; Colleen Holder; Lyn Persaud; Olinda Pelayo; Allegra Goodwin; Phoenix Mart; Walt Barbour Coding Level of Care Code 16950 INP/OBS DISCH >30 MIN Diagnoses Atrial fibrillation with rapid ventricular response I48.91 SOB (shortness of breath) R06.02 Benign essential hypertension I10 CAD (coronary artery disease) I25.10 Carotid artery stenosis I65.29 Cardiomyopathy I42.9 Acute systolic (congestive) heart failure I50.21
[2023-12-20] MEDS: NITROGLYCERIN SL 0.4 MG/TAB TAB ONE (12:15)
[2023-12-20] MEDS ORDERED: ONDANSETRON INJ 2 MG/ML 2 ML VIAL IV PRN (12:18)
[2023-12-20] MEDS: METOPROLOL TARTRATE 1 MG/ML VIAL IV PRN (12:20)
[2023-12-20] MEDS: ONDANSETRON INJ 2 MG/ML 2 ML VIAL ONE (12:21)
[2023-12-20] MEDS: METOPROLOL TARTRATE 1 MG/ML VIAL IV ONE (12:51)
[2023-12-20] MEDS: METOPROLOL TARTRATE 25 MG TAB PO SCH (13:30)
--- NOTE | 2023-12-20 14:54 | Electrocardiogram Report ---
Test Reason : Blood Pressure : / mmHG Vent. Rate : 096 BPM Atrial Rate : 096 BPM P-R Int : 166 ms QRS Dur : 092 ms QT Int : 390 ms P-R-T Axes : 041 -16 042 degrees QTc Int : 492 ms Sinus rhythm with Premature supraventricular complexes Nonspecific ST abnormality Prolonged QT Abnormal ECG When compared with ECG of 18-DEC-2023 09:53, Premature supraventricular complexes are now Present Vent. rate has decreased BY [address] no longer depressed in Inferior leads Nonspecific T wave abnormality, improved in Lateral leads Confirmed by Sunny Cleary ([id number]) on 12/20/2023 2:54:40 PM Referred By: Phoenix Mart Confirmed By:Sunny Cleary
[2023-12-21 11:15] LABS: Basophils # (auto) 0.03 K/uL (0.00-0.20); Basophils % (auto) 0.5 %; Eosinophils # (auto) 0.26 K/uL (0.00-0.50); Eosinophils % (auto) 4.7 %; Hematocrit (blood only) 40.4 % (42.0-52.0); Hemoglobin 13.2 g/dl (14.0-18.0); Immature Granulocytes # (auto) 0.01 K/uL (0.01-0.20); Immature Granulocytes % (auto) 0.2 %; Lymphocytes # (auto) 1.05 K/uL (1.20-3.40); Lymphocytes % (auto) 19.2 %; Mean Corpuscular Hemoglobin 28.4 pg (25.0-34.0); Mean Corpuscular Hgb Conc 32.7 g/dL (32.0-36.0); Mean Corpuscular Volume 87.1 fL (80.0-100.0); Mean Platelet Volume 11.2 fL (9.4-12.4); Monocytes # (auto) 0.62 K/uL (0.11-0.59); Monocytes % (auto) 11.3 %; Neutrophils # (auto) 3.51 K/uL (1.40-6.50); Neutrophils % (auto) 64.1 %; Platelet Count 187 K/uL (130-400); RDW Coefficient of Variation 16.9 % (11.5-14.5); Red Blood Count 4.64 M/uL (4.70-6.10); White Blood Count 5.48 K/ul (4.8-10.8)
[2023-12-21 11:20] LABS: Albumin Globulin Ratio 1.5 (0.9-2); Albumin Level 4.3 gm/dl (3.4-5.0); BUN Creatinine Ratio 20.5 (10-20); Calcium 9.4 mg/dl (8.6-10.3); Creatinine Clr Calc Pharmacy 57.7 ml/min; Est GFR (African American) 75.7 ml/min; Est GFR (Non-African American) 65.3 ml/min; Globulin 2.9 gm/dl (2.5-4.0); Potassium 4.1 mmol/L (3.5-5.1); Total Protein 7.2 gm/dl (6.0-8.3)
[2023-12-21 11:26] LABS: Troponin I High Sensitivity 13.5 pg/ml (0-20)
--- NOTE | 2023-12-21 14:30 | Discharge Summary ---
Discharge Summary Date of Service December 21, 2023 Principal Dx & Hospital Course #1 = Principal Diagnosis (1) Atrial fibrillation with rapid ventricular response: Kevin Jefferson is a 73 year old male who presents to the ER with atrial fibrillation with rapid ventricular rate. He was treated with SYLVIA cardioversion on December 17 and started on amiodarone to keep him in normal sinus rhythm. He will remain on Eliquis for anticoagulation. Echocardiogram was concerning for severe global hypokinesis with LVEF 20-25% and he was diagnosed with HFrEF requiring low doses of Lasix during his admission. He will be discharged on Lasix 20mg PO daily. He had an episode of chest pain and dizziness on day prior to discharge which delayed his discharge by a day - telemetry only showed sinus tachycardia at that time and he has been fine since with normal troponins x2 erefore appears stable for discharge at this time. He was restarted back on metoprolol following this episode and rates in sinus rhythm have improved since - he will be switched to his usual metoprolol succinate on discharge given his significant cardiomyopathy. (2) SOB (shortness of breath): (3) Benign essential hypertension: (4) CAD (coronary artery disease): (5) Carotid artery stenosis: (6) Cardiomyopathy: (7) Acute systolic (congestive) heart failure: Notes For Next Care Provider Cardiology to follow up, recommend repeat BMP to monitor renal function as started on Lasix. Will need amiodarone to be reduced but this can be done in cardiology clinic, only a week of amiodarone prescription sent. Monitor for orthostasis on new medications. Medication Changes From Visit Stopped amlodipine and lisinopril due to hypotension with lasix, metoprolol and amiodarone Metoprolol succinate was restarted on discharge to help with cardiomyopathy (on metoprolol tartrate on day of discharge) Amiodarone started for rhythm control Admission HPI Per Admitting Provider Kevin is a 73-year-old male with a past medical history significant for recently diagnosed A-fib with RVR while in the cardiology clinic on 12/11/2023, carotid artery stenosis gnosis status post left TCAR with Dr. Ventura on 11/10/2022, hypertension, CAD, who presented to the [facility] ED on 12/17/2023 for ongoing A-fib with RVR and increased shortness of breath. Patient was recently seen in the [facility] cardiology clinic on 12/11/2023 where he was found to be in new onset A-fib with RVR. His dose of metoprolol was increased, he was started on Eliquis, his aspirin was held due to starting Eliquis, and he was initially planned for scheduled cardioversion with Dr. Mart. On arrival to the ED today he was noted to be in A-fib with RVR in the 130s, but was otherwise stable. Labs were significant for BUN of 27, high-sensitivity troponin within normal limits, BNP of 681 (no previous to compare to), and TSH within normal limits. Chest x-ray was read as negative for acute findings. Prior to admission the patient was given 5 mg IV Lopressor. We are asked to admit the patient as he will go for cardioversion tomorrow (12/18/2023) with Dr. Mart. Patient was sitting in bed in no acute distress at the time of exam with his bedside history was obtained from both they confirm the above history. Patient has been sleeping in his recliner the past 2 nights due to increased shortness of breath. Due to symptoms persisting this morning his called Dr. Mart who advised him to come to the ED for further assessment. Patient denies recent fever, chills, chest pain, cough, nausea/vomiting, abdominal pain, dysuria, hematuria, melena, lower extremity swelling, and recent trauma. Currently while in A-fib with RVR he is having increased dyspnea on exertion, his shortness of breath at rest is mild. He has not missed recent doses of his metoprolol or Eliquis. He understands he will be going for cardioversion tomorrow with Dr. Mart. He is a full code and his is his POA. patient was successfully cardioverted, started on amiodarone iv , transitioned to po, he developed acute systolic heart failure, was given IV Lasix 40 mg , reports feeling better today, life vest in place, due to low BP will hold off ABBY, Metoprolol, Farxiga or Spironolactone, K is 4 , will d/c on Amiodarone, Eliquis, Lasix, meds should be adjusted as outpatient, if BP is better Please refer to Dr. Barbour's attestation for any changes to the treatment plan Discharge Exam Constitutional WD/WN, vitals as above Respiratory normal respiratory effort, lungs clear to auscultation Cardiovascular RRR, no murmur, no edema (occasional skipped beats) Gastrointestinal (Abdomen) normal bowel sounds, soft, nontender, no hepatosplenomegaly Updated Medication List Medication Instructions Recorded Confirmed Type allopurinol 100 mg tablet 100 mg PO QAM 02/20/22 12/17/23 History ascorbic acid (vitamin C) 1,000 mg 1 g PO QAM 02/20/22 12/17/23 History capsule atorvastatin 80 mg tablet 80 mg PO HS 02/20/22 12/17/23 History multivitamin 1 tab PO QAM 02/20/22 12/17/23 History nitroglycerin 0.4 mg sublingual 0.4 mg sublingual Q5M PRN Chest 02/20/22 12/17/23 History tablet Pain vitamin B complex (B 1 tab PO QAM 02/20/22 12/17/23 History Complex-Vitamin B12 tablet) omega-3 339 mg-dha and epa 314 1 cap PO DAILY 10/08/23 12/17/23 History mg-fish and krill oil 500 mg capsule sildenafil 50 mg tablet 25 mg PO DAILY PRN Sexual Activity 10/08/23 12/17/23 History tamsulosin 0.4 mg capsule 0.4 mg PO HS 10/08/23 12/17/23 History apixaban 5 mg tablet (Eliquis) 5 mg PO BID #180 tabs 12/11/23 12/17/23 Rx clopidogrel 75 mg tablet 75 mg PO HS 12/17/23 12/17/23 History fexofenadine 180 mg tablet 180 mg PO QAM 12/17/23 12/17/23 History (Allergy Relief (fexofenadine)) potassium chloride 20 mEq 20 meq PO BID 12/17/23 12/17/23 History tablet,extended release(part/cryst) amiodarone 400 mg tablet 400 mg PO BID 1 week #14 tabs 12/20/23 Rx furosemide 20 mg tablet (Lasix) 20 mg PO DAILY #30 tabs 12/20/23 Rx metoprolol succinate 50 mg 50 mg PO DAILY #30 tabs 12/21/23 Rx tablet,extended release 24 hr Hospital Stay Data Consultations 12/17/23 14:36 Consult Anesthesiology Stat 12/17/23 14:48 Consult Cardiology Routine 12/17/23 16:04 ED Decision to Admit Stat Procedures Performed Operation Date: 12/18/23 07:45 Actual Procedures p Cardioversion - Ramesh Oconnor MD p Echo Transesophageal - Ramesh Oconnor MD s Echo Color Flow - Ramesh Oconnor MD s Echo Doppler Complete - Ramesh Oconnor MD Pending Results Patient Have Any Pending Studies at Discharge: No Discharge Instructions Given to Patient (Per Discharging Provider) You were admitted to [facility] from December 16 - 2023 due to atrial fibrillation with rapid ventricular rate. This was treated with electrical cardioversion and rhythm controlling medication (amiodarone). Amiodarone will need to be as an outpatient. Please follow up with your training and development coordinator for ongoing adjustments of this. You need to continue on Eliquis for anticoagulation to reduce your stroke risk. Metoprolol was initially discontinued but was re-introduced the day prior to discharge. Therefore it appears on your medication list as discontinued then re- prescribed. This has not been sent to a pharmacy as you should just continue on your usual dose of metoprolol succinate 50mg PO daily (it has not been changed). Please discontinue amlodipine and lisinopril. Currently your blood pressure is too low with your other medications to tolerate these. Please start furosemide 20mg PO daily - this is to stop fluid build up on your lungs known as heart failure. This will need to be continually re-adjusted by your training and development coordinator. Total Time Total Time Spent Total Time Spent (In Minutes): 40 Coding Level of Care Code 97605 INP/OBS DISCH >30 MIN Diagnoses Atrial fibrillation with rapid ventricular response I48.91 SOB (shortness of breath) R06.02 Benign essential hypertension I10 CAD (coronary artery disease) I25.10 Carotid artery stenosis I65.29 Cardiomyopathy I42.9 Acute systolic (congestive) heart failure I50.21
== END 2023-12-21 15:22 | disposition home or self-care (01) | DRG 308 ==
LOC: ED 14:09 → SUATTDRO 16:46 → EDINP 16:46 → 2S 17:57

== ENCOUNTER 2024-03-17 16:04 | Inpatient (IN) ==
--- NOTE | 2024-03-17 16:54 | Emergency Department Note ---
Impression & Plan Anemia ADMIT ED Provider Note HPI: History obtained from Patient. The patient is a 73-year-old gentleman with history of Coronary artery disease, atrial fibrillation currently on apixaban, who presents to the emergency department with a chief complaint of shortness of breath that has been happening with exertion over about the past 3 weeks. Patient states that he just returned home from a fishing trip in [place] where he was having issues with extreme fatigue with ambulation. Patient states at times his friends actually had to carry him into the boat and out of the boat. Patient denies any chest pain with any of these episodes. On arrival here to the ED the patient is hemodynamically stable, he is saturating well on room air at rest in the bed and when he is at rest he denies any complaints. ROS: - Per HPI Differential Diagnosis: Acute on chronic CHF exacerbation, acute coronary syndrome, pleural effusion, pneumonia, viral upper respiratory infection, amongst other potential pathologies. *Outpatient medications and allergy history reviewed. PE: General: Alert HEENT: Normocephalic, trachea midline Eyes: Extraocular eye movement is intact, no scleral erythema Pulmonary: Clear to auscultation bilaterally, no wheezing Cardio: Regular rate and rhythm GI: Abdomen is soft to palpation : No suprapubic tenderness MSK: No evidence of trauma or malformation of the extremities, no edema Skin: No evidence of rash Neuro: Alert, no focal deficits Psychiatric: Cooperative INDEPENDENT INTERPRETATIONS: campus monitor: (As interpreted by myself): - An order was placed for continuous cardiac monitoring - Patient was noted to be in sinus rhythm with a rate of 70 EKG: (As interpreted by myself): Rate: 96 Rhythm: Normal sinus rhythm Intervals: Within normal limits ST changes: No ST elevation Time: 1618 Chest x-ray: (As interpreted by myself): No acute disease Interventions provided in ED: -Packed red blood cell transfusion Medical Decision Making: IV was established and lab work obtained, patient was placed on cardiac catheterization technician. Lab work shows no leukocytosis, patient was noted to have anemia with a hemoglobin of 5.5, platelet count is normal. CMP does not show any evidence of any critical findings, troponin is negative x 1. BNP is mildly elevated at 315. Patient stated later that he did have some dark bowel movements recently. Patient denies any abdominal pain, denies any recent hematemesis. I suspect given reported darker stools, he might have a slow GI bleed causing his anemia. Given that the patient is hemodynamically stable, I do not feel that acute reversal of his anticoagulation is indicated at this time. Packed red blood cell transfusion was ordered and the patient consented for transfusion at the bedside. I discussed the patient's presentation with the on-call hospitalist for [facility]tr[facility], Dr. Chisholm, and the patient was placed for admission in stable condition. Patient was in agreement to this plan as was his family at the bedside. Consultants/Discussions held with other healthcare providers: -Hospitalist, Dr. Chisholm Disposition discussion held by myself with: -Patient * CRITICAL CARE TIME: ( 40 ) minutes -Stabilization of patient with critical anemia with a hemoglobin of 5.5 requiring packed red blood cell transfusion, time spent at the bedside, interpretation of diagnostic studies, discussion with other healthcare providers and arrangement of admission. Diagnosis: 1. Anemia, acute, symptomatic 2. Dyspnea on exertion, acute 3. History of CHF with reduced ejection fraction 4. Melena by history Disposition: Admission Kevin Reynolds DO Emergency Medicine Past Med/Surg History Problem List (Updated 03/17/24 @ 21:21 by Kevin Reynolds DO) Heart failure with reduced ejection fraction Anemia (Acute) Acute systolic (congestive) heart failure Cardiomyopathy SOB (shortness of breath) Elevated brain natriuretic peptide (BNP) level (Acute) Atrial fibrillation with rapid ventricular response (Acute) Benign essential hypertension Carotid artery stenosis CAD (coronary artery disease) 2013 > stents x3 PAF (paroxysmal atrial fibrillation) Carotid artery stenosis Unifocal PVCs Stented coronary artery Elevated PSA Heart disease Gout Vitamin D deficiency HTN (hypertension) Hyperlipidemia Prostate cancer (Chronic) Medical History Aortic stenosis Mild per 04/2022 echo Myocardial infarction 2012- Follows w/ cardio (Dr Kristina Ornelas) Surgical History Hx of colonoscopy Hx of cardiac catheterization 2013 Hx of heart artery stent 2013 > stents x3 History of hip surgery Left History of prostate biopsy Dr. Matthew Faye at [facility] History of tonsillectomy and adenoidectomy History of arthroscopic knee surgery History of back surgery x 5 surgeries after a skiing accident ~ 51 yrs ago Family History Father , Passed age 89 Pancreatic cancer Mother No problems noted. Sister No problems noted. Sister No problems noted. Brother No problems noted. Daughter No problems noted. Social History Smoking Status: Never smoker Tobacco Type: Cigarettes Second Hand Exposure: No; Do You Dip or Chew Tobacco: No; Hx Alcohol Use: Yes Alcohol type: beer Alcohol Intake Frequency: Monthly or Less Hx Substance Use: No Preferred Language: Andorran Communication Ability: Effective Visual Impairment: Limited Hearing Ability: Normal Second Worker Required: No Beliefs That Will Affect Care: None marital status: Current Living Situation: Significant Other Current Living Situation Comment: Lives at home alone current occupational status: employed current occupation: [email or web address] How many Children do You have: 1 Feels Safe at Home: Yes Childhood Exposure to Second-Hand Smoke: No Diet: regular caffeine: Yes (1 cup of coffee daily) during the past year weight has: remained stable Dental Care, Regularly: Yes Assistive Devices: None Allergies Allergies Allergy/AdvReac Type Severity Reaction Status Date / Time No Known Drug Allergies Allergy Unknown Unknown Verified 02/23/24 14:44 Home Meds Home Medications Medication Instructions Recorded Confirmed allopurinol 100 mg tablet 100 mg PO QAM 02/20/22 03/17/24 ascorbic acid (vitamin C) 1,000 mg 1 g PO QAM 02/20/22 03/17/24 capsule atorvastatin 80 mg tablet 80 mg PO HS 02/20/22 03/17/24 multivitamin 1 tab PO QAM 02/20/22 03/17/24 nitroglycerin 0.4 mg sublingual 0.4 mg sublingual Q5M PRN Chest 02/20/22 03/17/24 tablet Pain tamsulosin 0.4 mg capsule 0.4 mg PO HS 10/08/23 03/17/24 clopidogrel 75 mg tablet 75 mg PO HS 12/17/23 03/17/24 fexofenadine 180 mg tablet 180 mg PO QAM 12/17/23 03/17/24 (Allergy Relief (fexofenadine)) potassium chloride 20 mEq 20 meq PO BID 12/17/23 03/17/24 tablet,extended release(part/cryst) vitamin E (dl, acetate) 180 mg 180 mg PO BID 01/27/24 03/17/24 (400 unit) capsule furosemide 20 mg tablet (Lasix) 20 mg PO QAM 03/17/24 03/17/24 isosorbide mononitrate 30 mg 30 mg PO QAM 03/17/24 03/17/24 tablet,extended release 24 hr vitamin B complex 1 tab PO QAM 03/17/24 03/17/24 Previous Rx's Medication Instructions Recorded apixaban 5 mg tablet (Eliquis) 5 mg PO BID #180 tabs 12/11/23 metoprolol succinate 50 mg 50 mg PO DAILY #30 tabs 12/21/23 tablet,extended release 24 hr sacubitril 24 mg-valsartan 26 mg 1 tab PO BID #180 tabs 02/08/24 tablet (Entresto) Results & Data (ED) Vital Signs Vital Signs - 24 hr 03/17/24 16:12 03/17/24 17:01 03/17/24 17:12 Temperature 36.6 C Temperature Source Temporal Artery Scan Pulse Rate 96 H 84 81 Pulse Rhythm Respiratory Rate 18 18 Respiratory Effort / Characteristics Non-Labored Respiratory Depth Normal Blood Pressure 135/66 137/70 Blood Pressure Mean 89 92 Pulse Oximetry 100 100 Oxygen Delivery Method Room Air Oxygen Flow Rate Sepsis Recent Fever Within 48 Hours No Sepsis New/Unexplained Change in Mental Status No Sepsis Action Taken by Nursing No Action Required 03/17/24 17:17 03/17/24 17:17 03/17/24 17:18 Temperature Temperature Source Pulse Rate 90 Pulse Rhythm Regular Respiratory Rate 16 Respiratory Effort / Characteristics Respiratory Depth Blood Pressure Blood Pressure Mean Pulse Oximetry 96 97 96 Oxygen Delivery Method Room Air Room Air Room Air Oxygen Flow Rate 0 0 Sepsis Recent Fever Within 48 Hours Sepsis New/Unexplained Change in Mental Status Sepsis Action Taken by Nursing 03/17/24 17:30 03/17/24 18:00 Temperature Temperature Source Pulse Rate 83 83 Pulse Rhythm Respiratory Rate 23 15 Respiratory Effort / Characteristics Respiratory Depth Blood Pressure 131/65 137/70 Blood Pressure Mean 96 110 Pulse Oximetry 98 99 Oxygen Delivery Method Oxygen Flow Rate Sepsis Recent Fever Within 48 Hours Sepsis New/Unexplained Change in Mental Status Sepsis Action Taken by Nursing Laboratory Data 03/17/24 16:20 03/17/24 16:20 Lab Results 03/17/24 03/17/24 Range/Units 16:20 16:51 WBC 5.62 (4.8-10.8) K/ul RBC 1.90 L (4.70-6.10) M/uL Hgb 5.5 L* (14.0-18.0) g/dl Hct 19.5 L* (42.0-52.0) % MCV 102.6 H (80.0-100.0) fL MCH 28.9 (25.0-34.0) pg MCHC 28.2 L (32.0-36.0) g/dL RDW Std Deviation 81.4 H (36.4-46.3) fL RDW Coeff of Carrol 21.9 H (11.5-14.5) % Plt Count 251 (130-400) K/uL MPV 10.7 (9.4-12.4) fL Immature Gran % (Auto) 0.2 % Neut % (Auto) 72.2 % Lymph % (Auto) 10.7 % [place] % (Auto) 11.6 % Eos % (Auto) 4.8 % Baso % (Auto) 0.5 % Reticulocyte % (Auto) 9.04 H (0.50-2.00) % Neut # (Auto) 4.06 (1.40-6.50) K/uL Lymph # (Auto) 0.60 L (1.20-3.40) K/uL [place] # (Auto) 0.65 H (0.11-0.59) K/uL Eos # (Auto) 0.27 (0.00-0.50) K/uL Baso # (Auto) 0.03 (0.00-0.20) K/uL Reticulocyte # 0.170 H (0.020-0.100) 10^6/uL Immature Gran # (Auto) 0.01 (0.01-0.20) K/uL Absolute Nucleated RBC 0.02 (0.00-0.12) K/uL Nucleated RBC % (auto) 0.4 % Polychromasia 1+ Anisocytosis Present Tear Drop Cells 1+ PT 10.6 (9.0-12.0) Seconds INR 1.0 (0.9-1.1) APTT 22 (21-31) Seconds PTT Ratio 0.8 Sodium 140 (136-145) mmol/L Potassium 4.3 (3.5-5.1) mmol/L Chloride 111 H (98-107) mmol/L Carbon Dioxide 20 L (21-32) mmol/L Anion Gap 9 (3-11) BUN 36 H (6-23) mg/dl Creatinine 1.18 (0.6-1.4) mg/dl Est Cr Clr Drug Dosing Not Reportable Est GFR ( Amer) 71.0 ml/min Est GFR (Non-Af Amer) 61.3 ml/min BUN/Creatinine Ratio 30.5 H (10-20) Glucose 132 H (70-99(Fasting)) mg/dl Calcium 8.6 (8.6-10.3) mg/dl Iron 37 (35-175) mcg/dl TIBC 420 (250-450) mcg/dl Unsaturated IBC 383 H (155-355) mcg/dl Transferrin % Sat 9 L (20-50) % Ferritin 21.7 (8-388) ng/ml Total Bilirubin 0.4 (0.2-1.0) mg/dl AST 14 (13-39) U/L ALT 17 (7-52) U/L Alkaline Phosphatase 70 (34-104) U/L Troponin I High Sens 11.1 (0-20) pg/ml B-Natriuretic Peptide 315 H (0-100) pg/ml Total Protein 6.5 (6.0-8.3) gm/dl Albumin 4.3 (3.4-5.0) gm/dl Globulin 2.2 L (2.5-4.0) gm/dl Albumin/Globulin Ratio 2.0 (0.9-2) Vitamin B12 > 1500 H (180-914) pg/ml Folate > 22.30 (>5.38) ng/ml Blood Type A Positive Antibody Screen NEGATIVE Crossmatch See Detail Administered Medications Discontinued Medications Furosemide (Furosemide 40 Mg/4 Ml Vial) 20 mg IV ONE ONE Stop: 03/17/24 20:01 Last Admin: 03/17/24 20:28 Dose: 20 mg Documented By: GAB Pantoprazole Sodium 80 mg/ (Dextrose) 120 mls @ 480 mls/hr IV ONE ONE Stop: 03/17/24 18:59 Last Infusion: 03/17/24 21:00 Dose: Infused Documented By: Infusion: 03/17/24 20:44 Dose: 480 mls/hr Documented By: Admin: 03/17/24 20:17 Dose: 480 mls/hr Documented By: GAB Imaging Data Radiologist's Impression: Chest X-Ray 03/17/24 16:16 XR chest 1V not portable CLINICAL HISTORY: Chest pain, nonspecific TECHNIQUE: Single frontal radiograph of the chest was obtained. Comparison: Comparison is made to chest radiograph 12/19/2023 FINDINGS: No lines and tubes are seen. The cardiomediastinal silhouette is stable. The lungs are clear. No evidence of pleural effusion or pneumothorax. IMPRESSION: No acute chest disease. ACT 112: Negative or not required by law. Electronically signed by: Deion Ellis M.D. 03/17/2024 5:22 PM Discharge Plan Visit Data Chief Complaint: Shortness of Breath/Dyspnea Stated Complaint: SOB, WEAK, A FIB ED Provider: Kevin Reynolds Discharge Problem: Anemia Patient Disposition: Admitted As Inpatient Discharge Instructions Interventions: ED Discharge Assessment Last Done: 03/17/24 20:09 Discharge Problem: Anemia Qualifiers: Anemia type: unspecified type Qualified Code(s): D64.9 - Anemia, unspecified
[2024-03-17 17:00] LABS: Alanine Aminotransferase 17 U/L (7-52); Albumin Level 4.3 gm/dl (3.4-5.0); Alkaline Phosphatase 70 U/L (34-104); Anion Gap 9 (3-11); Aspartate Aminotransferase 14 U/L (13-39); BUN Creatinine Ratio 30.5 (10-20); Bilirubin,Total 0.4 mg/dl (0.2-1.0); Blood Urea Nitrogen 36 mg/dl (6-23); Calcium 8.6 mg/dl (8.6-10.3); Carbon Dioxide 20 mmol/L (21-32); Chloride 111 mmol/L (98-107); Est GFR (Non-African American) 61.3 ml/min; Globulin 2.2 gm/dl (2.5-4.0); Glucose 132 mg/dl (70-99(Fasting)); Potassium 4.3 mmol/L (3.5-5.1); Sodium 140 mmol/L (136-145); Total Protein 6.5 gm/dl (6.0-8.3)
[2024-03-17 17:01] LABS: Hematocrit (blood only) 19.5 % (42.0-52.0); Hemoglobin 5.5 g/dl (14.0-18.0); Mean Corpuscular Hemoglobin 28.9 pg (25.0-34.0); Mean Corpuscular Hgb Conc 28.2 g/dL (32.0-36.0); Mean Corpuscular Volume 102.6 fL (80.0-100.0); Mean Platelet Volume 10.7 fL (9.4-12.4); Nucleated RBC # (auto) 0.02 K/uL (0.00-0.12); Nucleated RBC % (auto) 0.4 %; Platelet Count 251 K/uL (130-400); RDW Coefficient of Variation 21.9 % (11.5-14.5); RDW Standard Deviation 81.4 fL (36.4-46.3); White Blood Count 5.62 K/ul (4.8-10.8)
[2024-03-17 17:05] LABS: Troponin I High Sensitivity 11.1 pg/ml (0-20)
[2024-03-17 17:10] LABS: Partial Thromboplastin Ratio 0.8; Partial Thromboplastin Time 22 Seconds (21-31); Prothrombin Time 10.6 Seconds (9.0-12.0)
[2024-03-17 17:17] LABS: Anisocytosis Present; Basophils # (auto) 0.03 K/uL (0.00-0.20); Basophils % (auto) 0.5 %; Eosinophils # (auto) 0.27 K/uL (0.00-0.50); Eosinophils % (auto) 4.8 %; Immature Granulocytes # (auto) 0.01 K/uL (0.01-0.20); Immature Granulocytes % (auto) 0.2 %; Lymphocytes % (auto) 10.7 %; Monocytes # (auto) 0.65 K/uL (0.11-0.59); Monocytes % (auto) 11.6 %; Neutrophils # (auto) 4.06 K/uL (1.40-6.50); Neutrophils % (auto) 72.2 %; Polychromasia 1+; Tear Drop Cells 1+
--- NOTE | 2024-03-17 17:23 | XRay Report ---
XR chest 1V not portable CLINICAL HISTORY: Chest pain, nonspecific TECHNIQUE: Single frontal radiograph of the chest was obtained. Comparison: Comparison is made to chest radiograph 12/19/2023 FINDINGS: No lines and tubes are seen. The cardiomediastinal silhouette is stable. The lungs are clear. No evid ence of pleural effusion or pneumothorax. IMPRESSION: No acute chest disease. ACT 112: Negative or not required by law. Electronically signed by: Deion Ellis M.D. 03/17/2024 5:22 PM
--- NOTE | 2024-03-17 17:29 | History & Physical Report ---
Date of Service March 17, 2024 Assessment & Plan (1) Anemia: Plan: - patient denies shortness of breath dizziness, cold intolerance, and melena - possibly secondary to upper or lower GI bleed - s/p cardiac cath on 02/08, on Eliquis - Hgb 5.5, HCT 19.9 on admission - CBC showed anisocytosis, polychromasia, and tear drop cells - BUN 36 - GI consulted - NPO, holding home oral medications, continuing plavix po - Protonix 80 mg Iv bolus given - Continue Protonix 40 IV twice daily - 2 PRBC given on admission - goal Hgb 8.0 due to history of ischemic cardiac dz - will defer checking H&H until after 2 units given, rather than 1 due to higher Hgb goal - Iron and TIBC WNL, Unsaturated IBC elevated 383, Transferrin sat low 9% - B12 elevated > 1500, patient reports he takes daily B12 vitamin - Folate elevated > 22.30 - repeat H&H patient after 2 units given, repeat Q6 x3 - 1 unit back up RBC ordered to be stored prn (2) PAF (paroxysmal atrial fibrillation): Plan: - history of A-fib rate controlled with metoprolol, anticoagulated with Eliquis - N.p.o. holding home medications - Continue to monitor for a fib on telemetry (3) Heart failure with reduced ejection fraction: Plan: - not in acute exacerbation on admission - Echo 01/25/24 showed EF 30-35%, moderate mitral regurg, mild tricupsid regurg., mild aortic stenosis with mild insufficiency - BNP elevated to 315 on admission - CXR negative on admission - 20 mg IV lasix given with 2nd unit of blood to avoid volume overload/ TACO (4) CAD (coronary artery disease): Plan: - with multiple stents - recent lipid panel 12/16/23 WNL - although NPO, continue Plavix PO due to history of ischemic cardiac disease Plan VTE ppx: SCDs Diet: NPO Code status: DNR/DNI Admission and Anticipated Discharge Date Admission Date: 03/17/24 History of Present Illness Chief Complaint: Dyspnea Primary Care Provider: BALDO Madrid Patient is a 73-year-old male past medical history of paroxysmal a fib, heart failure with reduced ejection fraction, LAD stent placement, CAD, hypertension, prostate cancer, and gout. Presents today with ongoing shortness of breath for the past 3 weeks. He stated that he has been progressing. He also has associated dizziness, especially when going from sitting to standing. He stated he can barely walk to the bathroom without feeling like he would pass out. He also reports feeling very cold for the past 3 weeks. stenosis so confirmed that he has had complicated dialysis. He also has had melena for about a week. He cannot describe exactly how dark the stool was. He denies hematochezia, hematemesis, acid reflux, and chest pain. He does not take any iron supplement. He recently went on a fishing trip to [place], in which his friends had to carry him out of the boat yesterday because he was so dizzy. He has not had any falls due to his dizziness. He recently had a cardiac catheterization on 02/08 due to being in a fib with RVR. He has been taking aspirin and ibuprofen recently due to hip pain. He stated he took them every day for about a week. His most recent colonoscopy was about 5 years ago he noted no abnormalities. Patient denies headache, vision changes, rhinorrhea, sore throat, cough, chest pain, abdominal pain, nausea, vomiting, diarrhea, constipation, dysuria, hematuria, edema, numbness, tingling. He states he is currently not short of b reath or dizzy while laying in bed on admission. Patient's at bedside who is a nurse practitioner. She stated that he has looked more pale than normal for the past few weeks. He denies history of diabetes, previous GI bleed, gastric ulcers, Iron deficiency anemia, and B12 deficiency. He does not smoke, drinks alcohol socially. he took all of his home medications this morning. He does not use oxygen at home, no cpap/bipap use. He wishes to be DNR/DNI at this time and has a living will stating this. Patient previously received blood about 50 years ago when he hurt his back skiing and needed surgery, He does not recall having a reaction. Allergies Allergy/AdvReac Type Severity Reaction Status Date / Time No Known Drug Allergies Allergy Unknown Unknown Verified 02/23/24 14:44 Home Medications Medication Instructions Recorded Confirmed Type allopurinol 100 mg tablet 100 mg PO QAM 02/20/22 03/17/24 History ascorbic acid (vitamin C) 1,000 mg 1 g PO QAM 02/20/22 03/17/24 History capsule atorvastatin 80 mg tablet 80 mg PO HS 02/20/22 03/17/24 History multivitamin 1 tab PO QAM 02/20/22 03/17/24 History nitroglycerin 0.4 mg sublingual 0.4 mg sublingual Q5M PRN Chest 02/20/22 03/17/24 History tablet Pain tamsulosin 0.4 mg capsule 0.4 mg PO HS 10/08/23 03/17/24 History apixaban 5 mg tablet (Eliquis) 5 mg PO BID #180 tabs 12/11/23 03/17/24 Rx clopidogrel 75 mg tablet 75 mg PO HS 12/17/23 03/17/24 History fexofenadine 180 mg tablet 180 mg PO QAM 12/17/23 03/17/24 History (Allergy Relief (fexofenadine)) potassium chloride 20 mEq 20 meq PO BID 12/17/23 03/17/24 History tablet,extended release(part/cryst) metoprolol succinate 50 mg 50 mg PO DAILY #30 tabs 12/21/23 03/17/24 Rx tablet,extended release 24 hr vitamin E (dl, acetate) 180 mg 180 mg PO BID 01/27/24 03/17/24 History (400 unit) capsule sacubitril 24 mg-valsartan 26 mg 1 tab PO BID #180 tabs 02/08/24 03/17/24 Rx tablet (Entresto) furosemide 20 mg tablet (Lasix) 20 mg PO QAM 03/17/24 03/17/24 History isosorbide mononitrate 30 mg 30 mg PO QAM 03/17/24 03/17/24 History tablet,extended release 24 hr vitamin B complex 1 tab PO QAM 03/17/24 03/17/24 History Past Med/Surg History Problem List (Updated 03/17/24 @ 18:41 by Nicole Castro PA-C) Heart failure with reduced ejection fraction Anemia Acute systolic (congestive) heart failure Cardiomyopathy SOB (shortness of breath) Elevated brain natriuretic peptide (BNP) level (Acute) Atrial fibrillation with rapid ventricular response (Acute) Benign essential hypertension Carotid artery stenosis CAD (coronary artery disease) 2012 > stents x3 PAF (paroxysmal atrial fibrillation) Carotid artery stenosis Unifocal PVCs Stented coronary artery Elevated PSA Heart disease Gout Vitamin D deficiency HTN (hypertension) Hyperlipidemia Prostate cancer (Chronic) Medical History Aortic stenosis Mild per 04/2022 echo Myocardial infarction 2012- Follows w/ cardio (Dr Kristina Ornelas) Surgical History Hx of colonoscopy Hx of cardiac catheterization 2012 Hx of heart artery stent 2012 > stents x3 History of hip surgery Left History of prostate biopsy Dr. Matthew Faye at [facility] History of tonsillectomy and adenoidectomy History of arthroscopic knee surgery History of back surgery x 5 surgeries after a skiing accident ~ 51 yrs ago Family History Father , Passed age 89 Pancreatic cancer Mother No problems noted. Sister No problems noted. Sister No problems noted. Brother No problems noted. Daughter No problems noted. Social History Smoking Status: Never smoker Tobacco Type: Cigarettes Second Hand Exposure: No; Do You Dip or Chew Tobacco: No; Hx Alcohol Use: Yes Alcohol type: beer Alcohol Intake Frequency: Monthly or Less Hx Substance Use: No Preferred Language: Spanish Communication Ability: Effective Visual Impairment: Limited Hearing Ability: Normal Animal Geneticist Required: No Beliefs That Will Affect Care: None marital status: Current Living Situation: Significant Other Current Living Situation Comment: Lives at home alone current occupational status: employed current occupation: [employer] How many Children do You have: 1 Feels Safe at Home: Yes Childhood Exposure to Second-Hand Smoke: No Diet: regular caffeine: Yes (1 cup of coffee daily) during the past year weight has: remained stable Dental Care, Regularly: Yes Assistive Devices: None Review of Systems Review of Systems: see HPI Physical Exam Physical Exam: The patient is awake, alert and oriented 3, normocephalic and atraumatic, in no acute distress. Pale appearing. HEENT- EOMI, mucous membranes moist. Hearing grossly intact. Heart- normal S1 and S2. No murmurs, rubs or gallops. Lungs- clear bilaterally, no respiratory distress, no accessory muscle use. Abdomen- normal bowel sounds and soft. No ascites noted. Non-tender. Extremities- no clubbing, cyanosis, or edema. Temperature of skin normal. Rheumatologic- normal range of motion. Psychiatric- normal affect. Results & Data Results & Data Vital Signs (Past 12 Hours) Vital Signs Temp Pulse Resp BP Pulse Ox O2 Del Method O2 Flow Rate 03/17/24 17:18 96 Room Air 0 03/17/24 17:17 90 16 97 Room Air 03/17/24 17:17 96 Room Air 0 03/17/24 17:12 81 18 137/70 100 03/17/24 17:01 84 03/17/24 16:12 36.6 C 96 H 18 135/66 100 Room Air Code Status & VTE Plan Code Status DNR/DNI VTE Prophylaxis Plan VTE Prophylaxis will be ordered: Yes Supervising Physician Co-Signing Physician Notes Kevin is a 73-year-old male with a past medical history of A-fib, heart failure with reduced ejection fraction with last cath 02/09/2024 showing patent prior LAD stent moderate nonocclusive coronary disease and 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 He reports to the ER after he went on a fishing trip but had severe limiting fatigue on exertion for the entire trip. He is not hypoxic. He is not hypotensive or tachycardic. He is found to have a hemoglobin of 5.5, no melena/ hematochezia. Severe anemia Suspect chronic given despite relatively profound anemia with hemoglobin 5.5 he is not tachycardic, hypotensive and symptoms presented with exertional fatigue Has noticed some dark stools? Melena. He has not had any abdominal pain, no history of GERD. His BUN is slightly elevated with a normal creatinine, given melena and elevated BUN with anemia will treat with PPI bolus and twice daily. GI consulted. Occult stool pending. GI consulted. No acute/large-volume bleeding to indicate urgent procedural intervention No longer on Zytiga since July No abdominal pain Iron studies, B12, folate, retake count ordered Type and cross for 2 units ordered for transfusion, consent on file Trend H&H. Given underlying ischemic disease goal hemoglobin 8.0. H&H after 2 units, then q6h x3. Eliquis held Heart failure with reduced ejection fraction Last echo 01/2024 with moderate to severe LV dysfunction, EF 30-35% No evidence of acute on chronic CHF on admission Suspect exertional fatigue is due to anemia, chest x-ray does not show evidence of volume overload Caution for TACO given underlying HF. Lasix IV x1 with second unit. Plavix continued for stent protection. Eliquis temporarily held Atrial fibrillation Eliquis temporarily held for anemia and pending trended H&H. No evidence of clinical bleeding, reversal not recommended on admission Continue metoprolol PG Care Time/CCT Total # of Minutes Spent Total Time Spent with Patient: Total time spent is greater than 50% in coordination of care (as documented) at patient's floor/unit and/or counseling patient: Coding Level of Care Code None Diagnoses Anemia D64.9 PAF (paroxysmal atrial fibrillation) I48.0 Heart failure with reduced ejection fraction I50.20 CAD (coronary artery disease) I25.10
[2024-03-17 17:40] LABS: Reticulocyte % 9.04 % (0.50-2.00)
[2024-03-17 17:55] LABS: Iron 37 mcg/dl (35-175); Total Iron Binding Cap Calc 420 mcg/dl (250-450); Transferrin (FE) Percent Satur 9 % (20-50); Unsaturated Iron Binding Cap 383 mcg/dl (155-355)
[2024-03-17 18:15] LABS: Ferritin 21.7 ng/ml (8-388)
[2024-03-17 18:21] LABS: Folate (Folic Acid),Ser orPlas > 22.30 ng/ml (>5.38)
[2024-03-17 18:23] LABS: Vitamin B12 > 1500 pg/ml (180-914)
[2024-03-17] MEDS ORDERED: SODIUM CHLORIDE 0.9% 250 ML IV PRN ×2 (18:25→18:28)
[2024-03-17] MEDS: PANTOprazole 80 MG in DEXTROSE 5% 100 ML IV ONE (20:17)
[2024-03-17] MEDS: FUROSEMIDE 40 MG/4 ML VIAL IV ONE (20:28)
[2024-03-17] MEDS ORDERED: NITROGLYCERIN SL 0.4 MG/TAB TAB SL PRN (20:40)
[2024-03-17] MEDS: ATORVASTATIN 40 MG TAB PO SCH (22:20)
[2024-03-17] MEDS: CLOPIDOGREL BISULFATE 75 MG TAB PO SCH (22:20)
[2024-03-18 01:31] LABS: Hematocrit (blood only) 23.2 % (42.0-52.0); Hemoglobin 7.3 g/dl (14.0-18.0)
[2024-03-18] MEDS: FUROSEMIDE INJ 20 MG/2 ML VIAL IV ONE (05:00)
[2024-03-18 06:44] LABS: Hematocrit (blood only) 25.3 % (42.0-52.0); Hemoglobin 8.4 g/dl (14.0-18.0)
--- NOTE | 2024-03-18 07:14 | Gastrointestinal Consultation ---
Date of Consultation March 18, 2024 Assessment & Plan (1) Anemia: With anemia. He has been using Ibuprofen of late so could be NSAIA injury. He does carry a history of so Heyd's syndrome or other could be causative as well. Plan Rec: Agree with PPI and transfusion EGD - this procedure, the alternatives including no work up or treatment, risks and benefits were discussed. Among the risks discussed included cardiorespiratory suppression, aspiration, bleeding, failure to diagnose cancer or other pathology and perforation requiring surgery. In addition we discussed that if specimens are obtained it may be deemed beneficial to send these for genetic/DNA testing. The patient claimed to understand all that was discussed, consented to all and all of his questions were answered. History of Present Illness Reason for Consultation: ? GIB Requesting Physician: Nicole Castro Attending Physician: Will Lloyd DO History of Present Illness 73 yo WM states he has been having pain from his arthritis and for the past two weeks has been using Ibuprofen. He noted his stools turned black and was actually on vacation and became weak and came into the hospital and was found to be anemic. He states he takes both Plavix and Eliquis. PMH: A-fib s/p ablation CAD PAD HTN Gout Prostate Cancer - treated with radiation PSH: Coronary stents Carotid stent Lumbar disectomy Cardiac Ablation Knee T&A FH: Positive for prostate cancer in his brother SH: Tobacco: Denies ETOH: Occasional GI/Endoscopy Data: He states he had an unremarkable colonoscopy in 2008 Allergies Allergy/AdvReac Type Severity Reaction Status Date / Time No Known Drug Allergies Allergy Unknown Unknown Verified 02/23/24 14:44 Home Medications Medication Instructions Recorded Confirmed Type allopurinol 100 mg tablet 100 mg PO QAM 02/20/22 03/17/24 History ascorbic acid (vitamin C) 1,000 mg 1 g PO QAM 02/20/22 03/17/24 History capsule atorvastatin 80 mg tablet 80 mg PO HS 02/20/22 03/17/24 History multivitamin 1 tab PO QAM 02/20/22 03/17/24 History nitroglycerin 0.4 mg sublingual 0.4 mg sublingual Q5M PRN Chest 02/20/22 03/17/24 History tablet Pain tamsulosin 0.4 mg capsule 0.4 mg PO HS 10/08/23 03/17/24 History apixaban 5 mg tablet (Eliquis) 5 mg PO BID #180 tabs 12/11/23 03/17/24 Rx clopidogrel 75 mg tablet 75 mg PO HS 12/17/23 03/17/24 History fexofenadine 180 mg tablet 180 mg PO QAM 12/17/23 03/17/24 History (Allergy Relief (fexofenadine)) potassium chloride 20 mEq 20 meq PO BID 12/17/23 03/17/24 History tablet,extended release(part/cryst) metoprolol succinate 50 mg 50 mg PO DAILY #30 tabs 12/21/23 03/17/24 Rx tablet,extended release 24 hr vitamin E (dl, acetate) 180 mg 180 mg PO BID 01/27/24 03/17/24 History (400 unit) capsule sacubitril 24 mg-valsartan 26 mg 1 tab PO BID #180 tabs 02/08/24 03/17/24 Rx tablet (Entresto) furosemide 20 mg tablet (Lasix) 20 mg PO QAM 03/17/24 03/17/24 History isosorbide mononitrate 30 mg 30 mg PO QAM 03/17/24 03/17/24 History tablet,extended release 24 hr vitamin B complex 1 tab PO QAM 03/17/24 03/17/24 History Patient History Medical History Aortic stenosis Mild per 04/2022 echo Myocardial infarction 2012- Follows w/ cardio (Dr Kristina Ornelas) Surgical History Hx of colonoscopy Hx of cardiac catheterization 2012 Hx of heart artery stent 2012 > stents x3 History of hip surgery Left History of prostate biopsy Dr. Matthew Faye at [facility] History of tonsillectomy and adenoidectomy History of arthroscopic knee surgery History of back surgery x 5 surgeries after a skiing accident ~ 51 yrs ago Family History Father , Passed age 89 Pancreatic cancer Mother No problems noted. Sister No problems noted. Sister No problems noted. Brother No problems noted. Daughter No problems noted. Social History Smoking Status: Never smoker Tobacco Type: Cigarettes Second Hand Exposure: No; Do You Dip or Chew Tobacco: No; Hx Alcohol Use: Yes Alcohol type: other Alcohol Intake Frequency: Monthly or Less Hx Substance Use: No Preferred Language: Khmer Communication Ability: Effective Visual Impairment: Limited Hearing Ability: Normal Refrigerator Glazier Required: No Beliefs That Will Affect Care: None marital status: Current Living Situation: Alone Current Living Situation Comment: Lives at home alone current occupational status: employed current occupation: [employer] How many Children do You have: 1 Other Information That Helps Us Care for You: No Feels Safe at Home: Yes Safety Concerns: Feels Safe At This Time Childhood Exposure to Second-Hand Smoke: No Diet: regular caffeine: Yes (1 cup of coffee daily) during the past year weight has: remained stable Dental Care, Regularly: Yes Assistive Devices: Contacts Review of Systems Review of Systems: Unremarkable except for HPI and below. Gastrointestinal: He denies any vomiting or abdominal pain Physical Exam Physical Exam: WD WN WM NAD Constitutional: NAD Eyes: Sclera anicteric Conjunctiva not pale ENMT: NC/AT Neck: Supple Respiratory: Clear anteriorly Cardiovascular: RRR Gastrointestinal (Abdomen): NL BS, soft, nontender Musculoskeletal: Neg CCE Skin: Warm and dry Neurologic: A/O Results & Data Vital Signs (Past 12 Hours) Vital Signs Temp Pulse Resp BP BP Pulse Ox Pulse Ox 03/18/24 04:50 36.8 C 68 16 110/67 95 03/18/24 04:38 37.1 C 61 18 121/72 94 03/18/24 03:38 36.6 C 70 16 100/61 66 L 03/18/24 03:07 37.0 C 72 16 105/62 94 03/18/24 02:53 36.7 C 73 16 99/62 L 93 03/18/24 02:31 37 C 80 18 97/61 L 97 03/17/24 23:41 37.0 C 72 18 106/66 96 03/17/24 23:20 37.1 C 73 96 H 120/73 03/17/24 22:59 71 18 128/72 96 03/17/24 21:59 36.9 C 78 16 152/70 H 98 03/17/24 21:58 74 03/17/24 21:29 36.9 C 80 16 137/72 98 03/17/24 21:14 36.9 C 76 16 142/77 H 98 03/17/24 21:10 78 03/17/24 20:57 36.9 C 73 16 150/71 H 98 03/17/24 20:51 78 18 03/17/24 20:40 36.6 C 16 164/77 H 99 03/17/24 20:40 99 03/17/24 20:39 36.6 C 89 16 164/77 H 99 03/17/24 20:03 82 20 97 03/17/24 20:00 138/80 03/17/24 20:00 138/80 03/17/24 20:00 138/80 03/17/24 20:00 37.2 C 78 18 97 03/17/24 19:57 87 19 99 03/17/24 19:46 137/69 03/17/24 19:42 76 18 98 03/17/24 19:30 82 17 131/75 97 03/17/24 19:30 37.2 C 87 18 131/78 97 03/17/24 19:27 81 17 97 03/17/24 19:15 37.3 C 78 19 146/77 H 99 O2 Del Method O2 Del Method 03/18/24 04:50 03/18/24 04:38 03/18/24 03:38 03/18/24 03:07 03/18/24 02:53 03/18/24 02:31 03/17/24 23:41 03/17/24 23:20 03/17/24 22:59 03/17/24 21:59 03/17/24 21:58 03/17/24 21:29 03/17/24 21:14 03/17/24 21:10 03/17/24 20:57 03/17/24 20:51 03/17/24 20:40 Room Air 03/17/24 20:40 Room Air 03/17/24 20:39 03/17/24 20:03 03/17/24 20:00 03/17/24 20:00 03/17/24 20:00 03/17/24 20:00 03/17/24 19:57 03/17/24 19:46 03/17/24 19:42 03/17/24 19:30 03/17/24 19:30 03/17/24 19:27 03/17/24 19:15 PG Care Time/CCT Total # of Minutes Spent Total Time Spent with Patient: Total time spent is greater than 50% in coordination of care (as documented) at patient's floor/unit and/or counseling patient: Coding Level of Care Code 13910 INT INP/OBS CARE 2/55MIN Diagnoses Anemia D64.9 Anemia type: unspecified type (1) Anemia Anemia type: unspecified type Qualified Code(s): D64.9 - Anemia, unspecified
--- NOTE | 2024-03-18 07:52 | Hospitalist Progress Note ---
Date of Service March 18, 2024 Assessment & Plan (1) Duodenitis: Plan: History of several weeks of 1600mg daily ibuprofen use for R hip pain EGD reveals bleed in duodenal bulb, 2 applications of hemostatic stray used - no bleeding at end of procedure - continue avoiding NSAIDs, consider other methods of pain control for R hip pain such as voltaren gel - Protonix 40mg PO BID, continue through around Halloween - see how full liquid diet is tolerated before advancing to regular (2) Anemia: Plan: Hemoglobin 5.5 -> 8.4 post 2U blood transfusion - recent history of 1600mg/day for several weeks to relieve R hip pain - duodenal bulb bleed, see above assessment for details (3) Hip pain, right: Plan: based on examination, hip pain appears to be due to piriformis syndrome - ordered Voltaren gel QID q4h, apply from center of R buttock to lateral hip - piriformis distribution - continue daily stretching with active flexion against resistance (muscle- energy technique of OMT) - follow up outpatient for continued OMT Plan Rec: Agree with PPI and transfusion EGD - this procedure, the alternatives including no work up or treatment, risks and benefits were discussed. Among the risks discussed included cardiorespiratory suppression, aspiration, bleeding, failure to diagnose cancer or other pathology and perforation requiring surgery. In addition we discussed that if specimens are obtained it may be deemed beneficial to send these for genetic/DNA testing. The patient claimed to understand all that was discussed, consented to all and all of his questions were answered. Admission and Anticipated Discharge Date Admission Date: March 17, 2024 Supervising Physician Co-Signing Physician Notes I personally examined the patient and verified all matthew points of history and exam, discussed case, and agree with decision making with Dr Goodrich Feeling much better overall. Shortness of breath is improved. In defining hip pain, he points posterior to his greater trochanter and into his buttock. Vitals noted, in general he is awake and alert pleasant no distress. HEENT normocephalic atraumatic mucous membranes moist. Breathing unlabored no accessory muscle use good effort. Skin without rashes pallor or icterus. Neuro without focal deficits. Musculoskeletal/osteopathic shows right sided pirifo rmis high tone tender decreased range of motionLAS and muscle energy done with some improvement in tissue texture, patient tolerated well, although I did have to abort post isometric relaxation muscle energy after 1 iteration due to it hurting a lot. Dyspnea due to symptomatic anemia from acute blood loss anemia from NSAID induced GI bleed/duodenitisnow stable status post transfusion of 3 units packed red blood cells, status post EGD. Continue PPI. Off NSAIDs. Advance diet. Hopefully home tomorrow. Hip painactually appears to be biomechanicalpredominantly piriformis driven. OMT as above. Taught patient stretches. Voltaren gel to piriformis region 4 times daily. Formal follow-up with DO for OMT as outpatient if it does not get better with stretches and Voltaren and OMT done inpatient. Otherwise as above Subjective Patient was seen and examined at bedside, resting comfortably with HOB at 30 degrees, not appearing in acute distress. Notes feeling "good", endorses SOB has gotten a bit better since day prior. Had low hemoglobin of 5.5 day prior, transfused with 2u blood which increased hgb to 8.4. Notes he took 1600mg ibuprofen daily for several weeks to relieve R hip pain. Denies any recent fever, body aches, chills, cough, sore throat, hemoptysis, dizziness, nausea, vomiting, abdominal pain, back pain, bright red or dark stools Review of Systems Review of Systems: per HPI Physical Exam Physical Exam: constitutional: A&Ox3, not appearing in acute distress HEENT: anicteric sclerae, EOM intact, no pharyngeal erythema cardiovascular: soft heart sounds but no murmurs heard - pulses: 1+ left radial artery, 2+ righ t radial artery pulmonary: clear to auscultation b/l GI: normoactive bowel sounds, soft, nontender to palpation MSK: tender to palpation of R buttock in piriformis region, 5/5 strength b/l LE Results & Data Results & Data Vital Signs (Past 12 Hours) Vital Signs Temp Pulse Resp BP BP Pulse Ox Pulse Ox 03/18/24 04:50 36.8 C 68 16 110/67 95 03/18/24 04:38 37.1 C 61 18 121/72 94 03/18/24 03:38 36.6 C 70 16 100/61 66 L 03/18/24 03:07 37.0 C 72 16 105/62 94 03/18/24 02:53 36.7 C 73 16 99/62 L 93 03/18/24 02:31 37 C 80 18 97/61 L 97 03/17/24 23:41 37.0 C 72 18 106/66 96 03/17/24 23:20 37.1 C 73 96 H 120/73 03/17/24 22:59 71 18 128/72 96 03/17/24 21:59 36.9 C 78 16 152/70 H 98 03/17/24 21:58 74 03/17/24 21:29 36.9 C 80 16 137/72 98 03/17/24 21:14 36.9 C 76 16 142/77 H 98 03/17/24 21:10 78 03/17/24 20:57 36.9 C 73 16 150/71 H 98 03/17/24 20:51 78 18 03/17/24 20:40 36.6 C 16 164/77 H 99 03/17/24 20:40 99 03/17/24 20:39 36.6 C 89 16 164/77 H 99 03/17/24 20:03 82 20 97 03/17/24 20:00 138/80 03/17/24 20:00 138/80 03/17/24 20:00 138/80 03/17/24 20:00 37.2 C 78 18 97 03/17/24 19:57 87 19 99 O2 Del Method O2 Del Method 03/18/24 04:50 03/18/24 04:38 03/18/24 03:38 03/18/24 03:07 03/18/24 02:53 03/18/24 02:31 03/17/24 23:41 03/17/24 23:20 03/17/24 22:59 03/17/24 21:59 03/17/24 21:58 03/17/24 21:29 03/17/24 21:14 03/17/24 21:10 03/17/24 20:57 03/17/24 20:51 03/17/24 20:40 Room Air 03/17/24 20:40 Room Air 03/17/24 20:39 03/17/24 20:03 03/17/24 20:00 03/17/24 20:00 03/17/24 20:00 03/17/24 20:00 03/17/24 19:57 Resident Activity Tracking Resident Involvement: Resident Care Provided Care Provided: Adult Hospital Medicine (2) Anemia Anemia type: unspecified type Qualified Code(s): D64.9 - Anemia, unspecified
[2024-03-18] MEDS: PANTOprazole 40 MG in SYRINGE 0 ML IV SCH (09:11)
[2024-03-18 09:17] LABS: Hematocrit (blood only) 26.5 % (42.0-52.0); Hemoglobin 8.6 g/dl (14.0-18.0)
--- NOTE | 2024-03-18 09:19 | Anesthesiology Consultation ---
Date of Service March 18, 2024 Assessment & Plan Chart Review Chart Review: Acceptable Risk for Surgery, Patient NOT seen in Pre Admission Testing and entry level marketing assistant initiated Consults Requested none Proposed Anesthesia Anesthesia Type: MAC History Surgery Operation Date: 03/18/24 17:20 Proposed Procedures p Esophagogastroduodenoscopy Raj Anthony MD Height/Weight Height: 5 ft 8 in Weight: 82.7 kg Allergies Allergy/AdvReac Type Severity Reaction Status Date / Time No Known Drug Allergies Allergy Unknown Unknown Verified 02/23/24 14:44 Medications Home Medications Medication Instructions Recorded Confirmed Last Taken allopurinol 100 mg tablet 100 mg PO QAM 02/20/22 03/17/24 03/17/24 ascorbic acid (vitamin C) 1,000 mg 1 g PO QAM 02/20/22 03/17/24 03/17/24 capsule atorvastatin 80 mg tablet 80 mg PO HS 02/20/22 03/17/24 03/16/24 multivitamin 1 tab PO QAM 02/20/22 03/17/24 03/17/24 nitroglycerin 0.4 mg sublingual 0.4 mg sublingual Q5M PRN Chest 02/20/22 03/17/24 Unknown tablet Pain tamsulosin 0.4 mg capsule 0.4 mg PO HS 10/08/23 03/17/24 03/16/24 apixaban 5 mg tablet (Eliquis) 5 mg PO BID #180 tabs 12/11/23 03/17/24 03/17/24 am dose clopidogrel 75 mg tablet 75 mg PO HS 12/17/23 03/17/24 03/16/24 fexofenadine 180 mg tablet 180 mg PO QAM 12/17/23 03/17/24 03/17/24 (Allergy Relief (fexofenadine)) potassium chloride 20 mEq 20 meq PO BID 12/17/23 03/17/24 03/17/24 tablet,extended release(part/cryst) am metoprolol succinate 50 mg 50 mg PO DAILY #30 tabs 12/21/23 03/17/24 02/08/24 tablet,extended release 24 hr vitamin E (dl, acetate) 180 mg 180 mg PO BID 01/27/24 03/17/24 03/17/24 (400 unit) capsule sacubitril 24 mg-valsartan 26 mg 1 tab PO BID #180 tabs 02/08/24 03/17/24 03/17/24 tablet (Entresto) furosemide 20 mg tablet (Lasix) 20 mg PO QAM 03/17/24 03/17/24 03/17/24 isosorbide mononitrate 30 mg 30 mg PO QAM 03/17/24 03/17/24 03/17/24 tablet,extended release 24 hr vitamin B complex 1 tab PO QAM 03/17/24 03/17/24 03/17/24 Active Medications Generic Name Dose Route Start Last Admin Trade Name Marcial PRN Reason Stop Dose Admin Atorvastatin Calcium 80 mg 03/17/24 21:00 03/17/24 22:20 Atorvastatin 40 Mg Tab PO 04/16/24 20:59 Not Given HS ANDIE Clopidogrel Bisulfate 75 mg 03/17/24 21:00 03/17/24 22:20 Clopidogrel Bisulfate 75 Mg Tab PO 04/16/24 20:59 75 mg HS ANDIE Administration Pantoprazole Sodium 40 mg/ 10 mls @ 5 mls/min 03/18/24 09:00 03/18/24 09:11 Syringe IV 04/17/24 08:59 5 mls/min BID ANDIE Administration Past Medical History Medical History Aortic stenosis Mild per 04/2022 echo Myocardial infarction 2012- Follows w/ cardio (Dr Kristina Ornelas) Past Family History Family History Father , Passed age 89 Pancreatic cancer Mother No problems noted. Sister No problems noted. Sister No problems noted. Brother No problems noted. Daughter No problems noted. Past Surgical History Surgical History Hx of colonoscopy Hx of cardiac catheterization 2012 Hx of heart artery stent 2012 > stents x3 History of hip surgery Left History of prostate biopsy Dr. Matthew Faye at [facility] History of tonsillectomy and adenoidectomy History of arthroscopic knee surgery History of back surgery x 5 surgeries after a skiing accident ~ 52 yrs ago Social History Smoking Status: Never smoker Do You Dip or Chew Tobacco: No Hx Alcohol Use: Yes Alcohol type: other alcohol intake frequency: a few times a month Alcohol Intake Frequency Comment: val pratt Hx Substance Use: No substance use type: does not use Physical Exam Vital Signs Last Vital Signs Temp 36.9 C 03/18/24 08:19 Pulse 63 03/18/24 08:19 Resp 18 03/18/24 08:19 BP 129/69 03/18/24 08:19 Pulse Ox 97 03/18/24 08:19 O2 Del Method Room Air 03/18/24 08:19 O2 Flow Rate 0 03/17/24 17:18 Testing Laboratory Results 03/18/24 08:58 03/17/24 16:20 PT 10.6 Seconds (9.0-12.0) 03/17/24 16:20 INR 1.0 (0.9-1.1) 03/17/24 16:20 APTT 22 Seconds (21-31) 03/17/24 16:20 Blood Type A Positive 03/17/24 16:51 Antibody Screen NEGATIVE 03/17/24 16:51 Electrocardiogram Date: 03/17/24 Findings: + NSR @ (96) and + CA (old inferior wall) Chest X-Ray Date: 03/17/24 XR chest 1V not portable CLINICAL HISTORY: Chest pain, nonspecific TECHNIQUE: Single frontal radiograph of the chest was obtained. Comparison: Comparison is made to chest radiograph 12/19/2023 FINDINGS: No lines and tubes are seen. The cardiomediastinal silhouette is stable. The lungs are clear. No evidence of pleural effusion or pneumothorax. IMPRESSION: No acute chest disease. Echocardiogram Date: 01/25/24 EF: 30-35 LV Function: dysfunctional (mod) Other Findings: + atrial enlargement (mod LAE) Valvular Disease: + (mild), + AI (mild) and + MR (mod)
[2024-03-18] MEDS: SODIUM CHLORIDE 0.9% 500 ML IV SCH (12:40)
--- NOTE | 2024-03-18 13:21 | GI REPORT ---
[facility] Patient: FREDY FARIAS : 1950 Sex at : Male Age: 73 Years Procedure: Upper GI endoscopy Date: 03/18/2024 Attending Physician: Doron Anthony MD Referring MD: Indications: - Suspected upper gastrointestinal bleeding - Melena Medications: - Monitored Anesthesia Care Complications: - No immediate complications. Estimated Blood Loss: - Estimated blood loss was minimal. Procedure: - ASA Grade Assessment: III - A patient with severe systemic disease. - The egd scope was introduced through the mouth and advanced to the second part of the duodenum. - The upper GI endoscopy was accomplished without difficulty. - The patient tolerated the procedure well. Findings: - The examined esophagus was normal. - A few small erosions were found in the gastric antrum. For hemostasis, two applications of hemostatic spray were used. - Patchy moderately erythematous mucosa with active bleeding was found in the duodenal bulb. To treat the bleeding lesion, two applications of hemostatic spray were used. There was no bleeding at the end of the procedure. The remainder of the examined duodenum appeared normal. Impression: - Normal esophagus. - Erosive gastropathy. Hemostatic spray applied. - Erythematous duodenopathy. Hemostatic spray applied. - No specimens collected. Recommendation: Procedure Code(s): - 17098, Esophagogastroduodenoscopy, flexible, transoral; with control of bleeding, any method Diagnosis Code(s): - K92.1, Melena (includes Hematochezia) - K31.89, Other diseases of stomach and duodenum CPT(R) - 2023 copyright [employer]. All Rights Reserved. The CPT codes, CCI edits and ICD codes generated are intended as suggestions and were generated based on input data. These codes are preliminary and upon blocker and cutter contact lens review may be revised to meet current compliance and payer requirements. The provider is responsible for the final determination of appropriate codes, and modifiers. Doron Anthony MD This document has been electronically signed. Note Initiated:03/18/2024 Note Completed:03/18/2024 1:20 PM [id number]
--- NOTE | 2024-03-18 13:23 | Communication Note ---
Date of Service: March 18, 2024 POST PROCEDURE NOTE See Provation note for complete report. Summary: Bulbar duodenitis - touch bleeding - treated with hemostatic spray and hemostasis acheived Several antral erosions consistent with NSAIA injury - no active bleeding but also treated with hemostatic spray. Rec: NPO for 4 hrs to allow spray to congeal - then can advance diet PPI Avoid NSAIA OK from GI standpoint to use anticoagulation if needed. IP GI Service will sign off.
--- NOTE | 2024-03-18 13:44 | Electrocardiogram Report ---
Test Reason : Blood Pressure : */* mmHG Vent. Rate : 96 BPM Atrial Rate : 96 BPM P-R Int : 130 ms QRS Dur : 80 ms QT Int : 340 ms P-R-T Axes : * -13 -48 degrees QTcB Int : 429 ms Normal sinus rhythm Inferior infarct , age undetermined Abnormal ECG When compared with ECG of 24-Dec-2023 11:53, (unconfirmed) No significant change was found Confirmed by Sunny Cleary ([id number]) on 03/18/2024 1:44:12 PM Referred By: REFERRED SELF Confirmed By: Sunny Cleary
--- NOTE | 2024-03-18 13:50 | Anesthesiology Progress Note ---
Date of Service March 18, 2024 Anesthesia Post Procedure Vital Signs Vital Signs: Temp Pulse Pulse Resp BP BP Pulse Ox 03/18/24 13:47 72 16 128/69 97 03/18/24 13:30 71 16 135/75 97 03/18/24 13:16 88 12 108/64 97 03/18/24 12:31 37.5 C 68 16 145/100 H 97 03/18/24 11:53 37.1 C 67 20 134/71 96 03/18/24 08:19 36.9 C 63 18 129/69 97 03/18/24 07:36 67 03/18/24 07:36 03/18/24 04:50 36.8 C 68 16 110/67 95 03/18/24 04:38 37.1 C 61 18 121/72 94 03/18/24 03:38 36.6 C 70 16 100/61 66 L 03/18/24 03:07 37.0 C 72 16 105/62 94 03/18/24 02:53 36.7 C 73 16 99/62 L 93 03/18/24 02:31 37 C 80 18 97/61 L 97 03/17/24 23:41 37.0 C 72 18 106/66 96 03/17/24 23:20 37.1 C 73 96 H 120/73 03/17/24 22:59 71 18 128/72 96 03/17/24 21:59 36.9 C 78 16 152/70 H 98 03/17/24 21:58 74 03/17/24 21:29 36.9 C 80 16 137/72 98 03/17/24 21:14 36.9 C 76 16 142/77 H 98 03/17/24 21:10 78 03/17/24 20:57 36.9 C 73 16 150/71 H 98 03/17/24 20:51 78 18 03/17/24 20:40 36.6 C 16 164/77 H 99 03/17/24 20:40 03/17/24 20:39 36.6 C 89 16 164/77 H 99 03/17/24 20:03 82 20 97 03/17/24 20:00 138/80 03/17/24 20:00 138/80 03/17/24 20:00 138/80 03/17/24 20:00 37.2 C 78 18 97 03/17/24 19:57 87 19 99 03/17/24 19:46 137/69 03/17/24 19:42 76 18 98 03/17/24 19:30 82 17 131/75 97 03/17/24 19:30 37.2 C 87 18 131/78 97 03/17/24 19:27 81 17 97 03/17/24 19:15 37.3 C 78 19 146/77 H 99 03/17/24 19:00 128/69 03/17/24 19:00 128/69 03/17/24 19:00 128/69 03/17/24 18:52 37.2 C 83 20 132/68 97 03/17/24 18:51 132/68 03/17/24 18:51 132/68 03/17/24 18:30 81 20 132/65 97 03/17/24 18:00 83 15 137/70 99 03/17/24 17:30 83 23 131/65 98 03/17/24 17:18 96 03/17/24 17:17 90 16 97 03/17/24 17:17 96 03/17/24 17:12 81 18 137/70 100 03/17/24 17:01 84 03/17/24 16:12 36.6 C 96 H 18 135/66 100 Pulse Ox O2 Del Method O2 Del Method O2 Flow Rate 03/18/24 13:47 Room Air 03/18/24 13:30 Room Air 03/18/24 13:16 Room Air 03/18/24 12:31 Room Air 03/18/24 11:53 Room Air 03/18/24 08:19 Room Air 03/18/24 07:36 03/18/24 07:36 Room Air 03/18/24 04:50 03/18/24 04:38 03/18/24 03:38 03/18/24 03:07 03/18/24 02:53 03/18/24 02:31 03/17/24 23:41 03/17/24 23:20 03/17/24 22:59 03/17/24 21:59 03/17/24 21:58 03/17/24 21:29 03/17/24 21:14 03/17/24 21:10 03/17/24 20:57 03/17/24 20:51 03/17/24 20:40 Room Air 03/17/24 20:40 99 Room Air 03/17/24 20:39 03/17/24 20:03 03/17/24 20:00 03/17/24 20:00 03/17/24 20:00 03/17/24 20:00 03/17/24 19:57 03/17/24 19:46 03/17/24 19:42 03/17/24 19:30 03/17/24 19:30 03/17/24 19:27 03/17/24 19:15 03/17/24 19:00 03/17/24 19:00 03/17/24 19:00 03/17/24 18:52 03/17/24 18:51 03/17/24 18:51 03/17/24 18:30 03/17/24 18:00 03/17/24 17:30 03/17/24 17:18 Room Air 0 03/17/24 17:17 Room Air 03/17/24 17:17 Room Air 0 03/17/24 17:12 03/17/24 17:01 03/17/24 16:12 Room Air Transfer of Care Handoff Completed per policy Notes Mental Status: alert / awake / arousable and participated in evaluation Patient Amnestic to Procedure: Yes Nausea / Vomiting: adequately controlled Pain: adequately controlled Airway Patency, RR, SpO2: stable & adequate BP & HR: stable & adequate Hydration State: stable & adequate Anesthetic Complications: no major complications apparent
[2024-03-18] MEDS: LIDOCAINE 2% 2 ML VIAL/AMP(20MG/ML) INFIL ONE (14:18)
[2024-03-18] MEDS: PROPOFOL IV EMULSION 10 MG/ML 20 ML VIAL IV ONE (14:19)
[2024-03-18 15:30] LABS: Hematocrit (blood only) 26.2 % (42.0-52.0); Hemoglobin 8.2 g/dl (14.0-18.0)
--- NOTE | 2024-03-18 18:37 | Billing Data ---
Date of Service March 18, 2024 Coding Level of Care Code 57212 SUB INP/OBS CARE MIN
[2024-03-18] MEDS: DICLOFENAC SOD 1% GEL 100 GM TUBE EXT SCH (19:28)
[2024-03-18] MEDS: PANTOprazole 40 MG TAB PO SCH (20:35)
[2024-03-18] MEDS: VALSARTAN/SACUBITRIL 26/24MG TAB PO SCH (20:54)
[2024-03-18] MEDS: TAMSULOSIN HCL 0.4 MG CAP PO SCH (20:54)
[2024-03-19] MEDS: METOPROLOL SUCC 50MG EXT REL TAB PO SCH (07:21)
[2024-03-19 09:10] LABS: Basophils # (auto) 0.02 K/uL (0.00-0.20); Basophils % (auto) 0.5 %; Eosinophils # (auto) 0.23 K/uL (0.00-0.50); Eosinophils % (auto) 5.2 %; Hematocrit (blood only) 29.6 % (42.0-52.0); Hemoglobin 9.1 g/dl (14.0-18.0); Immature Granulocytes # (auto) 0.01 K/uL (0.01-0.20); Immature Granulocytes % (auto) 0.2 %; Lymphocytes # (auto) 0.38 K/uL (1.20-3.40); Lymphocytes % (auto) 8.6 %; Mean Corpuscular Hemoglobin 29.4 pg (25.0-34.0); Mean Corpuscular Hgb Conc 30.7 g/dL (32.0-36.0); Mean Corpuscular Volume 95.5 fL (80.0-100.0); Monocytes # (auto) 0.38 K/uL (0.11-0.59); Monocytes % (auto) 8.6 %; Neutrophils # (auto) 3.38 K/uL (1.40-6.50); Neutrophils % (auto) 76.9 %; Platelet Count 186 K/uL (130-400); RDW Coefficient of Variation 19.1 % (11.5-14.5); RDW Standard Deviation 64.4 fL (36.4-46.3)
[2024-03-19 09:25] LABS: BUN Creatinine Ratio 28.8 (10-20); Calcium 8.4 mg/dl (8.6-10.3); Creatinine Clr Calc Pharmacy 67.3 ml/min; Est GFR (African American) 82.7 ml/min; Est GFR (Non-African American) 71.4 ml/min; Potassium 3.7 mmol/L (3.5-5.1)
--- NOTE | 2024-03-19 09:46 | Hospitalist Progress Note ---
Date of Service March 19, 2024 Assessment & Plan (1) Duodenitis: Plan: History of several weeks of 1600mg daily ibuprofen use for R hip pain EGD reveals bleed in duodenal bulb, 2 applications of hemostatic stray used - no bleeding at end of procedure - continue avoiding NSAIDs, consider other methods of pain control for R hip pain such as voltaren gel - Protonix 40mg PO BID, continue through around Halloween - see how full liquid diet is tolerated before advancing to regular (2) Anemia: Plan: Hemoglobin 5.5 -> 8.4 post 2U blood transfusion - recent history of 1600mg/day for several weeks to relieve R hip pain - duodenal bulb bleed, see above assessment for details (3) Hip pain, right: Plan: based on examination, hip pain appears to be due to piriformis syndrome - ordered Voltaren gel QID q4h, apply from center of R buttock to lateral hip - piriformis distribution - continue daily stretching with active flexion against resistance (muscle- energy technique of OMT) - follow up outpatient for continued OMT Plan Rec: Agree with PPI and transfusion EGD - this procedure, the alternatives including no work up or treatment, risks and benefits were discussed. Among the risks discussed included cardiorespiratory suppression, aspiration, bleeding, failure to diagnose cancer or other pathology and perforation requiring surgery. In addition we discussed that if specimens are obtained it may be deemed beneficial to send these for genetic/DNA testing. The patient claimed to understand all that was discussed, consented to all and all of his questions were answered. Admission and Anticipated Discharge Date Admission Date: March 17, 2024 Results & Data Results & Data Vital Signs (Past 12 Hours) Vital Signs Temp Pulse Pulse Resp BP Pulse Ox Pulse Ox 03/19/24 07:53 36.7 C 76 16 110/64 96 03/19/24 07:15 36.7 C 76 14 109/62 95 03/18/24 22:12 95 O2 Del Method 03/19/24 07:53 Room Air 03/19/24 07:15 Room Air 03/18/24 22:12 (2) Anemia Anemia type: unspecified type Qualified Code(s): D64.9 - Anemia, unspecified
[2024-03-19 12:10] VITALS: BP 124/72; PULSE 72; RESP 18; TEMP 98.2; O2SAT 97
--- NOTE | 2024-03-19 13:21 | Discharge Summary ---
Date of Service March 19, 2024 Admission HPI Per Admitting Provider Patient is a 73-year-old male past medical history of paroxysmal a fib, heart failure with reduced ejection fraction, LAD stent placement, CAD, hypertension, prostate cancer, and gout. Presents today with ongoing shortness of breath for the past 3 weeks. He stated that he has been progressing. He also has associated dizziness, especially when going from sitting to standing. He stated he can barely walk to the bathroom without feeling like he would pass out. He also reports feeling very cold for the past 3 weeks. stenosis so confirmed that he has had complicated dialysis. He also has had melena for about a week. He cannot describe exactly how dark the stool was. He denies hematochezia, hematemesis, acid reflux, and chest pain. He does not take any iron supplement. He recently went on a fishing trip to [place], in which his friends had to carry him out of the boat yesterday because he was so dizzy. He has not had any falls due to his dizziness. He recently had a cardiac catheterization on 02/08 due to being in a fib with RVR. He has been taking aspirin and ibuprofen recently due to hip pain. He stated he took them every day for about a week. His most recent colonoscopy was about 5 years ago he noted no abnormalities. Patient denies headache, vision changes, rhinorrhea, sore throat, cough, chest pain, abdominal pain, nausea, vomiting, diarrhea, constipation, dysuria, hematuria, edema, numbness, tingling. He states he is currently not short of breath or dizzy while laying in bed on admission. Patient's at bedside who is a nurse practitioner. She stated that he has looked more pale than normal for the past few weeks. He denies history of diabetes, previous GI bleed, gastric ulcers, Iron deficiency anemia, and B12 deficiency. He does not smoke, drinks alcohol socially. he took all of his home medications this morning. He does not use oxygen at home, no cpap/bipap use. He wishes to be DNR/DNI at this time and has a living will stating this. Patient previously received blood about 50 years ago when he hurt his back skiing and needed surgery, He does not recall having a reaction. Admission Exam Per Admitting Provider The patient is awake, alert and oriented 3, normocephalic and atraumatic, in no acute distress. Pale appearing. HEENT- EOMI, mucous membranes moist. Hearing grossly intact. Heart- normal S1 and S2. No murmurs, rubs or gallops. Lungs- clear bilaterally, no respiratory distress, no accessory muscle use. Abdomen- normal bowel sounds and soft. No ascites noted. Non-tender. Extremities- no clubbing, cyanosis, or edema. Temperature of skin normal. Rheumatologic- normal range of motion. Psychiatric- normal affect. Principal Diagnosis Anemia, hip pain Discharge Exam Constitutional: NAD, WD/WN HEENT: NCAT, PERRL, MMM CV: RRR, no m/r/g, S1/S2 normal Resp: CTAB, symmetrical chest rise, breathing non-labored MSK: No gross deformities Skin: Warm, dry, pink, no rashes or lesions Neuro: AOx3, CN II-XII grossly intact Psych: Mood-affect congruent. Speech pace and content normal. Discharge Data Allergies Allergy/AdvReac Type Severity Reaction Status Date / Time No Known Drug Allergies Allergy Unknown Unknown Verified 02/23/24 14:44 Consultations 03/17/24 17:25 ED Decision to Admit Stat 03/17/24 20:40 Consult Gastroenterology Routine Procedures Performed Operation Date: 03/18/24 17:20 Actual Procedures p EGD Hemostasis - Doron Anthony MD Ordered Studies 03/19/24 08:35 03/19/24 08:35 Hospital Course (1) Duodenitis: - h/o several weeks of 1600mg ibuprofen daily - EGD 03/18 showed erosion w active bleeding in duodenal bulb; 2x hemostatic stray used; no bleeding at end of procedure - avoid oral NSAIDs after discharge; consider other forms of pain control e.g. voltaren gel - continue Protonix 40mg PO BID until around Halloween (2) Anemia: - 2/2 duodenal bulb bleed, see problem #1 - dx/tx EGD on 03/18; weakness, dizziness improved - initial Hgb 5.5; improved to 8.6 after 2U blood transfusion; 9.1 at discharge (3) Hip pain, right: - exam suggests hip pain d/t piriformis syndrome - continue Voltaren gel QID, apply from center of R buttock to lateral hip (piriformis distribution) - continue daily stretching with active flexion against resistance (muscle- energy technique of OMT) - follow up outpatient for continued OMT Total Time Total Time Spent Total Time Spent (In Minutes): <30 Discharge Plan Discharge Items Patient Disposition: Home - Self-Care Reason For Visit: ANEMIA/ SOB Discharge Diagnosis: anemia due to duodenitis Activity: Resume your previous activity Non-emergency contact: Primary Care Provider Call non-emergency contact if: you have any medication questions and your symptoms worsen Follow-up/Referrals: Sera Hart CRNP [Primary Care Provider] - Diet: Regular Addtl Attending Provider Instructions: Anemiayour anemia appears to have been due to oozing of blood from duodenitis. The duodenitis was erosions/inflammation of the duodenum brought on by ibuprofen. - Your vitals and blood counts, as well as symptoms strongly suggest that the bleeding has stopped - avoid any and all anti-inflammatories for now because they were certainly the culprit and causing all of this. Fortunately avoiding anti-inflammatories will be the biggest step in letting this heal, but acid suppression with something like Protonix can help things heal faster. Additionally, blood tends to clot more at a higher pH, so the acid suppression will also make any residual bleeding more likely to stop than increase - we will have you take the Protonix twice a day for the near future. Typically if you are avoiding anti-inflammatories, these types of situations will heal in 1-2 months, so as we have been discussing, it seems like somewhere around een is a pretty reasonable stop date for the Protonix - continue to follow how you are feeling, and have Brandie and your PCP keep an eye on any symptomshave blood counts checked again late next week to make sure things are continuing to improve - you have been on your Plavix the whole time you have been here, so keep taking that. Hold off on the Eliquis for another day and restarted on Thursday. Obviously once you restart the Eliquis if you were to notice anything at all that seems like recurrent bleeding (dark stool, weakness, etc.get blood work checked sooner rather than later). hip pain - as we discussed, the hip pain really seems to be much more muscular painfocused with your piriformis muscle being the centerpiece - is very likely something that can be improved dramatically, if not fixedit is just likely to take effort and time - to do the isometric stretches that I demonstratedideally 35 repetitions twice a day, use the Voltaren gel right across the piriformis region 34 times a day, and keep your leg moving as much as you can. By about April 05 if you are not seeing significant improvement, then it is pretty reasonable to enlist professional helpup here in [place] we have several DO physicians who do OMT in the officeand this is a kind of problem that is likely to get better far more quickly with OMT than with conventional physical therapy. Basically, if you are not feeling significant improvement with stretches and Voltaren gel by April 05, I would have you see either Dr. Heber Velasco or Dr. Jonathan Davila with [facility], or Dr. Xochilt Duarte or one of our osteopathic residents with [facility] medicine Pending Studies at Discharge: No Stand-Alone Forms: [facility] Medications and DC Order Prescriptions: New pantoprazole [Protonix] 40 mg tablet,delayed release (DR/EC) 40 mg PO BID Qty: 60 1RF Continued vitamin E (dl, acetate) 180 mg (400 unit) capsule 180 mg PO BID Entresto 24-26 mg tablet 1 tab PO BID Qty: 180 3RF atorvastatin 80 mg tablet 80 mg PO HS nitroglycerin 0.4 mg tablet, sublingual 0.4 mg sublingual Q5M PRN (Reason: Chest Pain) Rx Instructions: do not exceed 3 doses per episode allopurinol 100 mg tablet 100 mg PO QAM multivitamin Tablet 1 tab PO QAM ascorbic acid (vitamin C) 1,000 mg capsule 1 g PO QAM Eliquis 5 mg tablet 5 mg PO BID Qty: 180 3RF tamsulosin 0.4 mg capsule 0.4 mg PO HS isosorbide mononitrate 30 mg tablet extended release 24 hr 30 mg PO QAM furosemide [Lasix] 20 mg tablet 20 mg PO QAM vitamin B complex Tablet 1 tab PO QAM clopidogrel 75 mg tablet 75 mg PO HS fexofenadine [Allergy Relief (fexofenadine)] 180 mg tablet 180 mg PO QAM potassium chloride 20 mEq tablet,ER particles/crystals 20 meq PO BID metoprolol succinate 50 mg tablet extended release 24 hr 50 mg PO DAILY Qty: 30 0RF Discharge Orders: Discharge Order (Routine); Ordered 03/19/24 Ordered By: Will Lloyd Admission Data Admit Date/Time: 03/17/24 18:13 Attending Provider: Will Lloyd Admit Provider: Yahir Chisholm Primary Care Provider: Sera Hart Other Providers: Yahir Chisholm; Doron Anthony Other Interventions: Discharge Summary Assessment (RN) Last Done: 03/19/24 12:11 Supervising Physician Co-Signing Physician Notes I personally examined the patient and verified all matthew points of history and exam, discussed case, and agree with decision making with Dr Chacon Feeling okay. Able to get around. Feels up to going home. Discussed avoiding NSAIDs, discussed PPI, discussed outpatient follow-up/labs. In regards to his hip pain reiterated that it appears to be much more biomechanical and discussed stretches/Voltaren gel, and if that is not improving things enough discussed escalation to formal OMT. Vitals noted, in general he is awake and alert pleasant no distress. HEENT normocephalic atraumatic mucous membranes moist. Breathing unlabored no accessory muscle use good effort. Skin without rashes pallor or icterus. Neuro without focal deficits. Dyspnea due to symptomatic anemia from acute blood loss anemia from NSAID induced GI bleed/duodenitisnow stable status post transfusion of 3 units packed red blood cells, status post EGD. Continue PPI. Off NSAIDs. Tolerating diet. Safe/stable for home Hip painactually appears to be biomechanicalpredominantly piriformis driven. OMT done yesterday. Taught patient stretches. Voltaren gel to piriformis region 4 times daily. Formal follow-up with DO for OMT as outpatient if it does not get better with stretches and Voltaren and OMT done inpatient. Otherwise as above Resident Activity Tracking Resident Involvement: Resident Care Provided Care Provided: Adult Hospital Medicine
--- NOTE | 2024-03-19 17:03 | Billing Data ---
Date of Service March 19, 2024 Coding Level of Care Code 35794 IN/OBS DISCH 30 MIN/LESS
== END 2024-03-19 14:40 | disposition home or self-care (01) | DRG 378 ==
LOC: ED 16:04 → SUATTDRO 18:13 → 2S 18:13 → 3N 03-18 21:24

== ENCOUNTER 2024-03-28 18:42 | Inpatient (IN) ==
[2024-03-28 19:31] LABS: Hematocrit (blood only) 22.9 % (42.0-52.0); Hemoglobin 6.7 g/dl (14.0-18.0); Mean Corpuscular Hgb Conc 29.3 g/dL (32.0-36.0); Mean Corpuscular Volume 99.1 fL (80.0-100.0); Nucleated RBC # (auto) 0.08 K/uL (0.00-0.12); Nucleated RBC % (auto) 1.4 %; Platelet Count 326 K/uL (130-400); RDW Coefficient of Variation 19.3 % (11.5-14.5); RDW Standard Deviation 64.4 fL (36.4-46.3); Red Blood Count 2.31 M/uL (4.70-6.10); White Blood Count 5.59 K/ul (4.8-10.8)
[2024-03-28 19:32] LABS: Albumin Globulin Ratio 1.7 (0.9-2); BUN Creatinine Ratio 28.1 (10-20); Bilirubin,Total 0.4 mg/dl (0.2-1.0); Calcium 8.9 mg/dl (8.6-10.3); Creatinine Clr Calc Pharmacy 50.5 ml/min; Est GFR (African American) 64.4 ml/min; Est GFR (Non-African American) 55.5 ml/min; Globulin 2.4 gm/dl (2.5-4.0); Magnesium 2.1 mg/dl (1.7-2.4); Total Protein 6.4 gm/dl (6.0-8.3)
[2024-03-28] MEDS ORDERED: SODIUM CHLORIDE 0.9% 250 ML IV PRN (19:32)
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
[2024-03-28 19:55] LABS: Basophils # (auto) 0.03 K/uL (0.00-0.20); Basophils % (auto) 0.5 %; Eosinophils # (auto) 0.43 K/uL (0.00-0.50); Eosinophils % (auto) 7.7 %; Immature Granulocytes # (auto) 0.04 K/uL (0.01-0.20); Immature Granulocytes % (auto) 0.7 %; Lymphocytes # (auto) 0.52 K/uL (1.20-3.40); Lymphocytes % (auto) 9.3 %; Monocytes # (auto) 0.53 K/uL (0.11-0.59); Monocytes % (auto) 9.5 %; Neutrophils # (auto) 4.04 K/uL (1.40-6.50); Neutrophils % (auto) 72.3 %; Polychromasia 2+
[2024-03-28] MEDS: PANTOprazole 40 MG in SYRINGE 0 ML IV ONE ×2 (20:29→22:30)
[2024-03-28] MEDS ORDERED: ACETAMINOPHEN 1,000 MG/100 ML VIAL IV PRN (21:56)
--- NOTE | 2024-03-28 22:09 | History & Physical Report ---
Date of Service March 28, 2024 Assessment & Plan (1) Symptomatic anemia: (2) Anemia requiring transfusions: (3) Acute GI bleeding: (4) Cardiomyopathy: (5) CAD (coronary artery disease): (6) PAF (paroxysmal atrial fibrillation): (7) Stented coronary artery: (8) Erosive gastropathy: (9) Duodenitis: Plan Acute GI bleeding/erosive gastropathy/erythematous duodenitis/anemia requiring transfusions- The patient will be admitted to telemetry for serial cardiac enzymes, serial EKG's, cardiac rhythm monitoring During admission from 03/17-03/19/2024 patient presented with hemoglobin 5.5, received 3 units PRBCs, and was discharged with a hemoglobin of 9.1. In the outpatient setting today patient hemoglobin 6.3, with hemoglobin in the emergency department evening 6.7. He will receive 2 units PRBCs, with follow-up H&H and additional transfusions as needed. On 03/18, patient did have an EGD, which revealed a diagnosis of erosive gastropathy and erythematous duodenitis, and was discharged on pantoprazole 40 mg p.o. twice daily He missed the first 3 days of pantoprazole due to insurance noncoverage issues. He was continued upon discharge on Plavix due to CAD, and Eliquis due to PAF. Will consult gastroenterology, but as noted, EGD was performed on 03/18. Give a total pantoprazole 80 mg IV in the ED now, then 40 mg IV twice daily NSS + KCl 20 mill equivalents at 80 mL/h Ceftriaxone 2 g IV daily H&H every 4 hours Every morning CBC with differential, chemistry profile and magnesium levels CAD/hypertension/PAF/stented coronary arteries/cardiomyopathy As patient is n.p.o., he will be kept off of Plavix and apixaban Will consult cardiology, to coordinate with GI and medicine, regarding relative risk of being on Plavix and apixaban, with continued GI bleeding Will hold metoprolol succinate, isosorbide mononitrate, furosemide, Entresto for now due to hypotension Hyperlipidemia- Holding atorvastatin while n.p.o. Gout- Holding allopurinol while n.p.o. History of Present Illness Chief Complaint: The patient presents to the emergency department after having laboratories performed in the outpatient office today which showed hemoglobin of 6.3, having been admitted into the hospital on 03/17 with a hemoglobin of 5.5 and had been transfused 3 units of PRBCs to hemoglobin of 9.1 prior to discharge on 03/19 Primary Care Provider: BALDO Madrid The patient is a 73-year-old male with a past medical history including cardiomyopathy, atrial fibrillation with RVR, hypertension, carotid artery stenosis, CAD, PAF, stented coronary artery, gout, vitamin D deficiency, hypertension, hyperlipidemia, and prostate cancer. He had been admitted to [facility] from 03/17-03/19/2024 after presenting with upper GI bleed with dark stools, and found to have hemoglobin of 5.5. He received a total of 3 units PRBCs during that admission, and was discharged on 03/19 with hemoglobin of 9.1. EGD on 03/18 showed erosive gastropathy, and erythematous duodenopathy. He was given an Rx upon discharge for Protonix 40 mg p.o. twice daily, which he unfortunately had missed the first 3 days due to insurance noncoverage. He has continued to feel very fatigued, short of breath and dyspnea on exertion. Allergies Allergy/AdvReac Type Severity Reaction Status Date / Time No Known Drug Allergies Allergy Unknown Unknown Verified 02/23/24 14:44 Home Medications Medication Instructions Recorded Confirmed Type allopurinol 100 mg tablet 100 mg PO QAM 02/20/22 03/17/24 History ascorbic acid (vitamin C) 1,000 mg 1 g PO QAM 02/20/22 03/17/24 History capsule atorvastatin 80 mg tablet 80 mg PO HS 02/20/22 03/17/24 History multivitamin 1 tab PO QAM 02/20/22 03/17/24 History nitroglycerin 0.4 mg sublingual 0.4 mg sublingual Q5M PRN Chest 02/20/22 03/17/24 History tablet Pain tamsulosin 0.4 mg capsule 0.4 mg PO HS 10/08/23 03/17/24 History apixaban 5 mg tablet (Eliquis) 5 mg PO BID #180 tabs 12/11/23 03/17/24 Rx clopidogrel 75 mg tablet 75 mg PO HS 12/17/23 03/17/24 History fexofenadine 180 mg tablet 180 mg PO QAM 12/17/23 03/17/24 History (Allergy Relief (fexofenadine)) potassium chloride 20 mEq 20 meq PO BID 12/17/23 03/17/24 History tablet,extended release(part/cryst) metoprolol succinate 50 mg 50 mg PO DAILY #30 tabs 12/21/23 03/17/24 Rx tablet,extended release 24 hr vitamin E (dl, acetate) 180 mg 180 mg PO BID 01/27/24 03/17/24 History (400 unit) capsule sacubitril 24 mg-valsartan 26 mg 1 tab PO BID #180 tabs 02/08/24 03/17/24 Rx tablet (Entresto) furosemide 20 mg tablet (Lasix) 20 mg PO QAM 03/17/24 03/17/24 History isosorbide mononitrate 30 mg 30 mg PO QAM 03/17/24 03/17/24 History tablet,extended release 24 hr vitamin B complex 1 tab PO QAM 03/17/24 03/17/24 History pantoprazole 40 mg tablet,delayed 40 mg PO BID #60 tabs 03/19/24 Rx release (Protonix) Past Med/Surg History Problem List (Updated 03/29/24 @ 04:43 by Isak Huerta MD) Duodenitis Erosive gastropathy Symptomatic anemia (Acute) Anemia requiring transfusions (Acute) Acute GI bleeding (Acute) Hip pain, right GI bleed due to NSAIDs Acute systolic (congestive) heart failure Cardiomyopathy SOB (shortness of breath) Elevated brain natriuretic peptide (BNP) level (Acute) Atrial fibrillation with rapid ventricular response (Acute) Benign essential hypertension Carotid artery stenosis CAD (coronary artery disease) 2012 > stents x3 PAF (paroxysmal atrial fibrillation) Carotid artery stenosis Unifocal PVCs Stented coronary artery Elevated PSA Heart disease Gout Vitamin D deficiency HTN (hypertension) Hyperlipidemia Prostate cancer (Chronic) Medical History Aortic stenosis Mild per 04/2022 echo Myocardial infarction 2012- Follows w/ cardio (Dr Kristina Ornelas) Surgical History Hx of colonoscopy Hx of cardiac catheterization 2012 Hx of heart artery stent 2012 > stents x3 History of hip surgery Left History of prostate biopsy Dr. Matthew Faye at [facility] History of tonsillectomy and adenoidectomy History of arthroscopic knee surgery History of back surgery x 5 surgeries after a skiing accident ~ 52 yrs ago Family History Father , Passed age 89 Pancreatic cancer Mother No problems noted. Sister No problems noted. Sister No problems noted. Brother No problems noted. Daughter No problems noted. Social History Smoking Status: Never smoker Second Hand Exposure: No; Do You Dip or Chew Tobacco: No; Hx Alcohol Use: Yes Alcohol type: beer Alcohol Intake Frequency: Monthly or Less Hx Substance Use: No Preferred Language: Montserratian Communication Ability: Effective Visual Impairment: Limited Hearing Ability: Normal Vocational Director Required: No Beliefs That Will Affect Care: None marital status: Current Living Situation: Alone Current Living Situation Comment: Lives at home alone current occupational status: employed current occupation: [employer] How many Children do You have: 1 Other Information That Helps Us Care for You: No Feels Safe at Home: Yes Safety Concerns: Feels Safe At This Time Childhood Exposure to Second-Hand Smoke: No Diet: regular caffeine: Yes (1 cup of coffee daily) during the past year weight has: remained stable Dental Care, Regularly: Yes Assistive Devices: Other Assistive Devices Comment: Life Vest Review of Systems Review of Systems: The patient denies chest pain, palpitations, cough, lower extremity swelling, sore throat, fevers, chills, sweats, nausea, vomiting, diarrhea , constipation, abdominal pain, pelvic pain, blood in urine, dysuria, urinary frequency or urgency, memory loss, loss of consciousness, rash, imbalance, focal weakness, numbness or tingling in arms or legs, generalized arthralgias or myalgias, back or neck pain, or night sweats. The review of systems is otherwise negative other than for that already noted above, and at least 10 systems have been reviewed. Physical Exam Physical Exam: The patient is awake, alert and oriented 3, well developed and well nourished, normocephalic and atraumatic, lying in bed and in no acute distress. HEENT--PERRL, EOMI, mucous membranes and oropharynx dry. Neck--supple. No JVD. No bruits. Thyroid normal, trachea midline, no adenopathy. Heart--normal S1 and S2. No murmurs, rubs or gallops. Lungs--clear bilaterally, no respiratory distress, no accessory muscle use. Abdomen--normal bowel sounds and soft. Nontender. Nondistended, no hernias or masses, no organomegaly. Extremities--no cyanosis or clubbing. No edema. There are good distal pulses b/l. Dermatologic--skin is pale and dry Neurologic--cranial nerves II through XII grossly intact. Rheumatologic--normal range of motion. Psychiatric--normal affect. Results & Data Results & Data Vital Signs (Past 12 Hours) Vital Signs Temp Pulse Pulse Resp BP BP Pulse Ox 03/28/24 21:27 36.9 C 83 16 111/65 97 03/28/24 20:57 37.0 C 85 16 103/61 97 03/28/24 20:42 37.0 C 80 16 103/61 97 03/28/24 20:42 37 C 83 21 108/64 95 03/28/24 20:19 37 C 84 22 123/64 97 03/28/24 19:07 95 H 23 117/68 97 03/28/24 18:55 92 H 03/28/24 18:46 36.8 C 99 H 18 104/69 96 O2 Del Method O2 Flow Rate 03/28/24 21:27 03/28/24 20:57 03/28/24 20:42 03/28/24 20:42 0 03/28/24 20:19 0 03/28/24 19:07 Room Air 03/28/24 18:55 03/28/24 18:46 Laboratory Results Laboratory Results WBC 4.02 K/ul (4.8-10.8) L 03/29/24 03:10 RBC 2.86 M/uL (4.70-6.10) L 03/29/24 03:10 Hgb 8.2 g/dl (14.0-18.0) L 03/29/24 03:10 Hct 26.7 % (42.0-52.0) L 03/29/24 03:10 MCV 93.4 fL (80.0-100.0) D 03/29/24 03:10 MCH 28.7 pg (25.0-34.0) 03/29/24 03:10 MCHC 30.7 g/dL (32.0-36.0) L 03/29/24 03:10 RDW Std Deviation 58.3 fL (36.4-46.3) H 03/29/24 03:10 RDW Coeff of Carrol 18.7 % (11.5-14.5) H 03/29/24 03:10 Plt Count 223 K/uL (130-400) 03/29/24 03:10 MPV 10.8 fL (9.4-12.4) 03/29/24 03:10 Immature Gran % (Auto) 0.7 % 03/29/24 03:10 Neut % (Auto) 69.5 % 03/29/24 03:10 Lymph % (Auto) 10.7 % 03/29/24 03:10 [place] % (Auto) 10.9 % 03/29/24 03:10 Eos % (Auto) 7.7 % 03/29/24 03:10 Baso % (Auto) 0.5 % 03/29/24 03:10 Neut # (Auto) 2.79 K/uL (1.40-6.50) 03/29/24 03:10 Lymph # (Auto) 0.43 K/uL (1.20-3.40) L 03/29/24 03:10 [place] # (Auto) 0.44 K/uL (0.11-0.59) 03/29/24 03:10 Eos # (Auto) 0.31 K/uL (0.00-0.50) 03/29/24 03:10 Baso # (Auto) 0.02 K/uL (0.00-0.20) 03/29/24 03:10 Immature Gran # (Auto) 0.03 K/uL (0.01-0.20) 03/29/24 03:10 Absolute Nucleated RBC 0.02 K/uL (0.00-0.12) 03/29/24 03:10 Nucleated RBC % (auto) 0.5 % 03/29/24 03:10 Polychromasia 2+ 03/28/24 18:58 Sodium 140 mmol/L (136-145) 03/29/24 03:10 Potassium 3.8 mmol/L (3.5-5.1) 03/29/24 03:10 Chloride 111 mmol/L (98-107) H 03/29/24 03:10 Carbon Dioxide 22 mmol/L (21-32) 03/29/24 03:10 Anion Gap 7 (3-11) 03/29/24 03:10 BUN 34 mg/dl (6-23) H 03/29/24 03:10 Creatinine 1.05 mg/dl (0.6-1.4) 03/29/24 03:10 Est Cr Clr Drug Dosing 61.5 ml/min 03/29/24 03:10 Est GFR ( Amer) 81.8 ml/min 03/29/24 03:10 Est GFR (Non-Af Amer) 70.6 ml/min 03/29/24 03:10 BUN/Creatinine Ratio 32.4 (10-20) H 03/29/24 03:10 Glucose 103 mg/dl (70-99(Fasting)) H 03/29/24 03:10 Calcium 8.2 mg/dl (8.6-10.3) L 03/29/24 03:10 Magnesium 2.0 mg/dl (1.7-2.4) 03/29/24 03:10 Iron 56 mcg/dl (35-175) 03/28/24 18:58 TIBC 321 mcg/dl (250-450) 03/28/24 18:58 Unsaturated IBC 265 mcg/dl (155-355) 03/28/24 18:58 Transferrin % Sat 17 % (20-50) L 03/28/24 18:58 Ferritin 730.0 ng/ml (8-388) H 03/28/24 18:58 Total Bilirubin 0.7 mg/dl (0.2-1.0) 03/29/24 03:10 AST 12 U/L (13-39) L 03/29/24 03:10 ALT 9 U/L (7-52) 03/29/24 03:10 Alkaline Phosphatase 72 U/L (34-104) 03/29/24 03:10 Total Protein 5.2 gm/dl (6.0-8.3) L 03/29/24 03:10 Albumin 3.3 gm/dl (3.4-5.0) L 03/29/24 03:10 Globulin 1.9 gm/dl (2.5-4.0) L 03/29/24 03:10 Albumin/Globulin Ratio 1.7 (0.9-2) 03/29/24 03:10 Blood Type A Positive 03/28/24 18:58 Antibody Screen NEGATIVE 03/28/24 18:58 Crossmatch See Detail 03/28/24 18:58 Code Status & VTE Plan Code Status Full code VTE Prophylaxis Plan VTE Prophylaxis will be ordered: Yes PG Care Time/CCT Total # of Minutes Spent Total Time Spent with Patient: Total time spent is greater than 50% in coordination of care (as documented) at patient's floor/unit and/or counseling patient: Coding Level of Care Code 91208 INT INP/OBS CARE 3/75MIN Diagnoses Symptomatic anemia D64.9 Anemia requiring transfusions D64.9 Acute GI bleeding K92.2 Cardiomyopathy I42.9 CAD (coronary artery disease) I25.10 PAF (paroxysmal atrial fibrillation) I48.0 Stented coronary artery Z95.5 Erosive gastropathy K31.89 Duodenitis K29.80
[2024-03-28] MEDS: cefTRIAXone SODIUM 2,000 MG/50 ML BAG IV SCH (22:30)
[2024-03-29] MEDS: NSS + 20MEQ KCL 20 MEQ/1,000 ML BAG IV SCH (02:10)
[2024-03-29 03:46] LABS: Basophils # (auto) 0.02 K/uL (0.00-0.20); Basophils % (auto) 0.5 %; Eosinophils # (auto) 0.31 K/uL (0.00-0.50); Eosinophils % (auto) 7.7 %; Hematocrit (blood only) 26.7 % (42.0-52.0); Hemoglobin 8.2 g/dl (14.0-18.0); Immature Granulocytes # (auto) 0.03 K/uL (0.01-0.20); Immature Granulocytes % (auto) 0.7 %; Lymphocytes # (auto) 0.43 K/uL (1.20-3.40); Lymphocytes % (auto) 10.7 %; Mean Corpuscular Hemoglobin 28.7 pg (25.0-34.0); Mean Corpuscular Hgb Conc 30.7 g/dL (32.0-36.0); Mean Corpuscular Volume 93.4 fL (80.0-100.0); Mean Platelet Volume 10.8 fL (9.4-12.4); Monocytes # (auto) 0.44 K/uL (0.11-0.59); Monocytes % (auto) 10.9 %; Neutrophils # (auto) 2.79 K/uL (1.40-6.50); Neutrophils % (auto) 69.5 %; Nucleated RBC # (auto) 0.02 K/uL (0.00-0.12); Nucleated RBC % (auto) 0.5 %; Platelet Count 223 K/uL (130-400); RDW Coefficient of Variation 18.7 % (11.5-14.5); RDW Standard Deviation 58.3 fL (36.4-46.3); Red Blood Count 2.86 M/uL (4.70-6.10); White Blood Count 4.02 K/ul (4.8-10.8)
[2024-03-29 04:00] LABS: Albumin Globulin Ratio 1.7 (0.9-2); Albumin Level 3.3 gm/dl (3.4-5.0); BUN Creatinine Ratio 32.4 (10-20); Bilirubin,Total 0.7 mg/dl (0.2-1.0); Calcium 8.2 mg/dl (8.6-10.3); Creatinine Clr Calc Pharmacy 61.5 ml/min; Est GFR (African American) 81.8 ml/min; Est GFR (Non-African American) 70.6 ml/min; Globulin 1.9 gm/dl (2.5-4.0); Potassium 3.8 mmol/L (3.5-5.1); Total Protein 5.2 gm/dl (6.0-8.3)
[2024-03-29] MEDS: PANTOprazole 40 MG in SYRINGE 0 ML IV SCH (08:18)
--- NOTE | 2024-03-29 08:55 | Hospitalist Progress Note ---
Date of Service March 29, 2024 Assessment & Plan (1) Symptomatic anemia: Plan: Anemia requiring transfusions - Previous admission 03/17-03/19/2024; hemoglobin 5.5, received 3 units PRBCs, was discharged with hemoglobin of 9.1. - Outpatient 03/28 hemoglobin 6.3; repeat in ED was hemoglobin 6.7. Received 2 units PRBCs - H/H 03/29 8.2/26.7, improving - H&H every 4 hours - Every AM CBC with differential, chemistry profile and magnesium levels (2) Acute GI bleeding: Plan: Erosive gastropathy Duodenitis - EGD 03/18/24; diagnosis of erosive gastropathy and erythematous duodenitis, was discharged on pantoprazole 40 mg p.o. twice daily, missed 3 initial doses - GI consulted: Recommend continue IV protonix BID, discharge on pantoprazole 40 mg BID - NSS + KCl 20 mill equivalents at 80 mL/h - WBC 5.59, differential not indicating infection; discontinue Ceftriaxone 2 g IV daily - Discussed with GI regarding diet; EGD will not be completed. Change to clear liquid diet, increase as tolerated. - Appreciate ongoing GI input (3) CAD (coronary artery disease): Plan: Hypertension/PAF/stented coronary arteries/cardiomyopathy - On clear liquids - Consulted cardiology to coordinate with GI and medicine regarding relative risk of being on Plavix and apixaban with continued GI bleeding. - Echocardiogram (03/29). EF 55-60% - GI prefers aspirin rather than Plavix; stop Plavix and continue on PPI therapy. Start ASA 81 mg - Continue metoprolol succinate and entresto - Continue isosorbide mononitrate, furosemide - Discontinue lifevest; Cardiology recommends considering Watchman procedure - Appreciate ongoing cardiology input (4) Acute blood loss anemia: (5) Heart failure with improved ejection fraction (HFimpEF): (6) PAF (paroxysmal atrial fibrillation): Plan Acute GI bleeding/erosive gastropathy/erythematous duodenitis/anemia requiring transfusions- - Admitted to telemetry for serial cardiac enzymes, serial EKG's, cardiac rhythm monitoring Hyperlipidemia- - Continue atorvastatin Gout- - Holding allopurinol DVT: previously anticoagulated on Eliquis, SCDs now Dispo: Pending improvement of Hgb/Hct Admission and Anticipated Discharge Date Admission Date: March 28, 2024 Supervising Physician Co-Signing Physician Notes Attending Attestation & Progress Note: Pt seen/examined, chart reviewed, care plan d/w MARY Pineda. I agree w/ the matthew components of her documentation with the following additions - * acute blood loss anemia 2nd to presumed upper GI bleeding * PAF * chronic systolic CHF with improved EF s/p 2 units PRBCs this admission with improved H/H. no evidence of ongoing GI bleeding. ferritin is elevated, but transferrin sat is <20%, and patient reports having gotten IV Fe last week at [facility]. previous IV Fe + his recent PRBCs likely made the ferritin spuriously high. could consider another run of IV Fe tomorrow. patient denies any GI symptoms at this time. exam: gen - NAD, pallor but otherwise looks good neck - no JVD heart - RRR, s1 s2, no murmur lungs - CTA b/l abd - soft NT ND BS+ ext - no edema, pulses 2+ b/l A/P: 1. recurrent, presumed upper GI bleeding 2. recent hospital stay 2nd to #1 and #3, s/p EGD with erosive gastropathy & duodenopathy likely 2nd NSAIDs 3. acute blood loss anemia 4. iron deficiency 5. h/o PAF on Eliquis 6. CAD 7. h/o cardiomyopathy - previous EF 20-25%, EF now 55-60% Can stop fluids Agree w/ clear liquid diet Can give IV iron tomorrow Agree with holding Eliquis Agree with changing plavix to aspirin Resume BB Watch overnight Ambulate Care d/w Dr Cason from cardiology Walt Goldsmith MD Subjective Pt seen in bed at time of visit. Reports that his symptoms of SOB and fatigue have significantly approved since he received blood. States that he identified black, tar-like stool the day of admission and started to experience fatigue and SOB at the same time. Denies ongoing SOB, fatigue, no chest pain. Review of Systems Constitutional: no weakness Respiratory: no dyspnea Cardiovascular: no chest pain, no dyspnea at rest, no palpitations and no syncope Gastrointestinal: + melena (day of admission); no nausea, no vomiting and no hematemesis Physical Exam Respiratory: normal respiratory effort, lungs clear to auscultation Cardiovascular: RRR, no murmur, no edema Gastrointestinal (Abdomen): Inspection/Auscultation: normal bowel sounds Percussion/Palpation: abdomen soft; abdomen nontender, no guarding and no abdominal mass Skin: + pallor Results & Data Results & Data Vital Signs (Past 12 Hours) Vital Signs Temp Pulse Pulse Resp BP BP Pulse Ox 03/29/24 07:43 36.9 C 73 18 113/63 96 03/29/24 03:12 36.8 C 60 18 98/64 L 94 03/29/24 02:15 74 03/29/24 02:10 36.7 C 74 18 95/59 L 93 03/29/24 02:09 36.7 C 74 18 95/59 L 93 03/29/24 01:44 36.6 C 73 18 100/62 93 03/29/24 01:09 36.8 C 70 18 102/63 92 03/29/24 00:39 36.8 C 79 18 96/60 L 95 03/29/24 00:24 36.8 C 75 18 98/54 L 95 03/29/24 00:08 37.0 C 73 18 119/76 95 03/28/24 23:41 03/28/24 23:41 36.7 C 76 18 132/64 99 03/28/24 22:58 36.9 C 76 18 118/77 97 03/28/24 22:58 36.9 C 82 19 92/52 L 97 03/28/24 22:36 80 15 92/55 L 96 03/28/24 22:27 36.9 C 81 20 110/54 L 96 03/28/24 21:27 36.9 C 83 16 111/65 97 03/28/24 20:57 37.0 C 85 16 103/61 97 O2 Del Method O2 Flow Rate 03/29/24 07:43 Room Air 03/29/24 03:12 Room Air 03/29/24 02:15 03/29/24 02:10 0 03/29/24 02:09 03/29/24 01:44 03/29/24 01:09 03/29/24 00:39 03/29/24 00:24 03/29/24 00:08 0 03/28/24 23:41 Room Air 03/28/24 23:41 Room Air 03/28/24 22:58 03/28/24 22:58 Room Air 03/28/24 22:36 Room Air 03/28/24 22:27 03/28/24 21:27 03/28/24 20:57 Laboratory Results Abnormal lab results 03/28/24 03/29/24 Range/Units 18:58 03:10 WBC 4.02 L (4.8-10.8) K/ul RBC 2.31 L 2.86 L (4.70-6.10) M/uL Hgb 6.7 L* 8.2 L (14.0-18.0) g/dl Hct 22.9 L 26.7 L (42.0-52.0) % MCHC 29.3 L 30.7 L (32.0-36.0) g/dL RDW Std Deviation 64.4 H 58.3 H (36.4-46.3) fL RDW Coeff of Carrol 19.3 H 18.7 H (11.5-14.5) % Lymph # (Auto) 0.52 L 0.43 L (1.20-3.40) K/uL Chloride 111 H (98-107) mmol/L BUN 36 H 34 H (6-23) mg/dl BUN/Creatinine Ratio 28.1 H 32.4 H (10-20) Glucose 124 H 103 H (70-99(Fasting)) mg/dl Calcium 8.2 L (8.6-10.3) mg/dl Transferrin % Sat 17 L (20-50) % Ferritin 730.0 H (8-388) ng/ml AST 12 L (13-39) U/L Total Protein 5.2 L (6.0-8.3) gm/dl Albumin 3.3 L (3.4-5.0) gm/dl Globulin 2.4 L 1.9 L (2.5-4.0) gm/dl Crossmatch See Detail PG Care Time/CCT Total # of Minutes Spent Total Time Spent with Patient: Total time spent is greater than 50% in coordination of care (as documented) at patient's floor/unit and/or counseling patient: Coding Level of Care Code None Diagnoses Symptomatic anemia D64.9 Acute GI bleeding K92.2 CAD (coronary artery disease) I25.10 Acute blood loss anemia D62 Heart failure with improved ejection fraction (HFimpEF) I50.32 PAF (paroxysmal atrial fibrillation) I48.0
--- NOTE | 2024-03-29 10:27 | Gastrointestinal Consultation ---
Date of Consultation March 29, 2024 Assessment & Plan (1) Duodenitis: (2) Erosive gastropathy: (3) Symptomatic anemia: Plan -Continue IV Protonix 40 mg BID at present; When discharged, will need Pantoprazole 40 mg BID. -Discussed with cardiology regarding holding Eliquis and leaning on Aspirin rather than Plavix. See cardiology note for their plans. -Continue to monitor H/H. -Supportive care per primary team. Supervising Physician Co-Signing Physician Notes I examined the patient and reviewed patient's chart , laboratory data and imaging studies. I agree with with assessment and plan of care as suggested by advanced practice provider. Recurrent iron deficiency anemia and dark stools, melena in the setting of anticoagulation with Eliquis and antiplatelet therapy with aspirin and Plavix. Cardiology agreed to hold Plavix and Eliquis. Okay to continue aspirin from GI standpoint. If stable okay to discharge tomorrow on a proton pump inhibitor. Avoid nonsteroidals. The patient will be scheduled for colonoscopy as an outpatient. The procedure will be done in the hospital because the last dose of Plavix was yesterday. History of Present Illness Reason for Consultation: UGI bleed, gastropathy, duodenitis Attending Physician: Walt Goldsmith MD History of Present Illness Patient is a 73 yo male who presents to the ED due to outpatient labs indicated a hemoglobin of 6.3. Upon arrival to the hospital, the patient was found to have an H/H of 6.7/22.9. He was recently admitted at [facility] from 03/17-03/19 for a GI bleed during which time he had an EGD on 03/18 that showed erosive gastropa thy and erythematous duodenitis. He was given Protonix 40 mg BID which he missed for some time due to insurance issues. He notes that he was taking Eliquis & Plavix at home. Prior to that he was taking NSAIDs for aches and pains. He notes some ongoing dark stool, but to a lesser degree. He is currently on Pantoprazole IV 40 mg BID. Cardiology is consulted. No new complaints or concerns. Allergies Allergy/AdvReac Type Severity Reaction Status Date / Time No Known Drug Allergies Allergy Unknown Unknown Verified 02/23/24 14:44 Home Medications Medication Instructions Recorded Confirmed Type allopurinol 100 mg tablet 100 mg PO QAM 02/20/22 03/17/24 History ascorbic acid (vitamin C) 1,000 mg 1 g PO QAM 02/20/22 03/17/24 History capsule atorvastatin 80 mg tablet 80 mg PO HS 02/20/22 03/17/24 History multivitamin 1 tab PO QAM 02/20/22 03/17/24 History nitroglycerin 0.4 mg sublingual 0.4 mg sublingual Q5M PRN Chest 02/20/22 03/17/24 History tablet Pain tamsulosin 0.4 mg capsule 0.4 mg PO HS 10/08/23 03/17/24 History apixaban 5 mg tablet (Eliquis) 5 mg PO BID #180 tabs 12/11/23 03/17/24 Rx clopidogrel 75 mg tablet 75 mg PO HS 12/17/23 03/17/24 History fexofenadine 180 mg tablet 180 mg PO QAM 12/17/23 03/17/24 History (Allergy Relief (fexofenadine)) potassium chloride 20 mEq 20 meq PO BID 12/17/23 03/17/24 History tablet,extended release(part/cryst) metoprolol succinate 50 mg 50 mg PO DAILY #30 tabs 12/21/23 03/17/24 Rx tablet,extended release 24 hr vitamin E (dl, acetate) 180 mg 180 mg PO BID 01/27/24 03/17/24 History (400 unit) capsule sacubitril 24 mg-valsartan 26 mg 1 tab PO BID #180 tabs 02/08/24 03/17/24 Rx tablet (Entresto) furosemide 20 mg tablet (Lasix) 20 mg PO QAM 03/17/24 03/17/24 History isosorbide mononitrate 30 mg 30 mg PO QAM 03/17/24 03/17/24 History tablet,extended release 24 hr vitamin B complex 1 tab PO QAM 03/17/24 03/17/24 History pantoprazole 40 mg tablet,delayed 40 mg PO BID #60 tabs 03/19/24 Rx release (Protonix) Patient History Medical History Heart failure with reduced ejection fraction Anemia Aortic stenosis Mild per 04/2022 echo Myocardial infarction 2012- w/ cardio (Dr Kristina Ornelas) Surgical History Hx of colonoscopy Hx of cardiac catheterization 2013 Hx of heart artery stent 2013 > stents x3 History of hip surgery Left History of prostate biopsy Dr. Matthew Faye at [facility] History of tonsillectomy and adenoidectomy History of arthroscopic knee surgery History of back surgery x 5 surgeries after a skiing accident ~ 51 yrs ago Family History Father , Passed age 89 Pancreatic cancer Mother No problems noted. Sister No problems noted. Sister No problems noted. Brother No problems noted. Daughter No problems noted. Social History Smoking Status: Never smoker Second Hand Exposure: No; Do You Dip or Chew Tobacco: No; Hx Alcohol Use: Yes Alcohol type: beer Alcohol Intake Frequency: Monthly or Less Hx Substance Use: No Preferred Language: German Communication Ability: Effective Visual Impairment: Limited Hearing Ability: Normal Student Advisor Required: No Beliefs That Will Affect Care: None marital status: Current Living Situation: Alone Current Living Situation Comment: Lives at home alone current occupational status: employed current occupation: [employer] How many Children do You have: 1 Other Information That Helps Us Care for You: No Feels Safe at Home: Yes Safety Concerns: Feels Safe At This Time Childhood Exposure to Second-Hand Smoke: No Diet: regular caffeine: Yes (1 cup of coffee daily) during the past year weight has: remained stable Dental Care, Regularly: Yes Assistive Devices: None Assistive Devices Comment: Life Vest Review of Systems Constitutional: no fever and no chills Respiratory: + dyspnea on exertion; no cough Gastrointestinal: no problem reported Psychiatric: no problem reported Physical Exam Constitutional: well developed Respiratory: normal respiratory effort Cardiovascular: Rate/Rhythm: regular rate Gastrointestinal (Abdomen): normal bowel sounds, soft, nontender, no hepatosplenomegaly Psychiatric: Orientation: alert and oriented x 3 Results & Data Vital Signs (Past 12 Hours) Vital Signs Temp Pulse Pulse Resp BP BP Pulse Ox 03/29/24 07:43 36.9 C 73 18 113/63 96 03/29/24 03:12 36.8 C 60 18 98/64 L 94 03/29/24 02:15 74 03/29/24 02:10 36.7 C 74 18 95/59 L 93 03/29/24 02:09 36.7 C 74 18 95/59 L 93 03/29/24 01:44 36.6 C 73 18 100/62 93 03/29/24 01:09 36.8 C 70 18 102/63 92 03/29/24 00:39 36.8 C 79 18 96/60 L 95 03/29/24 00:24 36.8 C 75 18 98/54 L 95 03/29/24 00:08 37.0 C 73 18 119/76 95 03/28/24 23:41 03/28/24 23:41 36.7 C 76 18 132/64 99 03/28/24 22:58 36.9 C 76 18 118/77 97 03/28/24 22:58 36.9 C 82 19 92/52 L 97 03/28/24 22:36 80 15 92/55 L 96 O2 Del Method O2 Flow Rate 03/29/24 07:43 Room Air 03/29/24 03:12 Room Air 03/29/24 02:15 03/29/24 02:10 0 03/29/24 02:09 03/29/24 01:44 03/29/24 01:09 03/29/24 00:39 03/29/24 00:24 03/29/24 00:08 0 03/28/24 23:41 Room Air 03/28/24 23:41 Room Air 03/28/24 22:58 03/28/24 22:58 Room Air 03/28/24 22:36 Room Air PG Care Time/CCT Total # of Minutes Spent Total Time Spent with Patient: Total time spent is greater than 50% in coordination of care (as documented) at patient's floor/unit and/or counseling patient: Coding Level of Care Code 77746 INT INP/OBS CARE MIN Diagnoses Duodenitis K29.80 Erosive gastropathy K31.89 Symptomatic anemia D64.9
--- NOTE | 2024-03-29 10:55 | Cardiology Consultation ---
Date of Consultation March 29, 2024 Assessment & Plan (1) Cardiomyopathy: (2) CAD (coronary artery disease): (3) PAF (paroxysmal atrial fibrillation): (4) Acute blood loss anemia: (5) Acute GI bleeding: (6) Mitral regurgitation: (7) Heart failure with improved ejection fraction (HFimpEF): Plan ASSESSMENT/PLAN: 1. Cardiomyopathy: Limited echo ordered and reviewed. LV systolic function has normalized. Cardiomyopathy was likely tachycardia induced given his episode of A-fib with RVR in December 2023. Further titration of heart failure medications is not necessary. LifeVest can be discontinued. He does not qualify for ICD for primary prevention. 2. Heart failure with improved EF: LV systolic function has normalized. He apparently required diuresis in December 2023 when he presented with A-fib with RVR. Heart failure at that time was likely driven by tachycardia induced cardiomyopathy with ongoing tachycardia. If any evidence of heart failure in the future, could consider SGLT2 inhibitor. Otherwise, recommend continuation of his current regimen of low-dose Entresto and metoprolol succinate 50 mg daily. 3. Paroxysmal atrial fibrillation: Had been on amiodarone in the past. Currently in sinus rhythm. Resume beta-marques when able. Given recurrent GI bleed with profound anemia requiring 5 units of PRBC thus far this month, recommend discontinuation of anticoagulation therapy for now. If his GI issues resolved, could consider resuming anticoagulation therapy but otherwise, would consider Watchman device. This can be further discussed with his primary registered radiologic technologist, Dr. Mart, in the outpatient setting. 4. Acute blood loss anemia with recurrent GI bleed: Appreciate GI input. Communicated with GI, Rain Paige, earlier today. From a cardiac standpoint, single antiplatelet therapy is recommended. After discussion, GI prefers aspi rin rather than Plavix as long as he is able to maintain appropriate PPI. Can resume aspirin 81 mg today as per GI. Monitor for recurrent bleeding. If Plavix is felt to be a better option in the future for his erosive gastritis, Plavix would also be suitable from a cardiac standpoint. He also is s/p TCAR and would defer to vascular surgery in regards to long-term antiplatelet therapy in this situation. 5. CAD s/p PCI: Single antiplatelet therapy is suitable from a cardiac standpoint. After discussion with GI, aspirin is preferred with recurrent GI bleeding from their standpoint. Can resume aspirin 81 mg and monitor for further bleeding. Continue beta-marques. Resume high intensity statin therapy. 6. Mitral regurgitation: Can be followed in the outpatient setting with Dr. Mart. 7. Disposition: Please call with any further questions or concerns. Recommend close follow-up with Dr. Mart in the outpatient setting. Patient care communicated with primary hospitalist, Dr. Goldsmith. Thank you for allowing me to participate in the care of your patient. Please call for any other questions or concerns. Sincerely, Telly Cason M.D. History of Present Illness Reason for Consultation: Upper GI bleed on Plavix and Eliquis Requesting Physician: Dr. Huerta Attending Physician: Walt Goldsmith MD History of Present Illness Mr. Grover is a very pleasant 73-year-old gentleman with a history significant for CAD s/p multiple PCI, cardiomyopathy, paroxysmal atrial fibrillation, mitral regurgitation, recurrent GI bleed, dyslipidemia, nonsevere aortic stenosis, erosive gastropathy, and acute blood loss anemia. His primary registered radiologic technologist is Dr. Mart. He was admitted on 03/28/2024 with symptomatic anemia. He had been hospitalized on 03/17/2024 with upper GI bleed and a hemoglobin of 5.5. He received 3 units of PRBC and was discharged home with a hemoglobin of 9.1. He underwent EGD which demonstrated erosive gastropathy and erythematous duodenopathy. He represented on 03/28/2024 with lightheadedness, weakness, and dyspnea on exertion. He also had 2 more days of melena. He denies hematochezia. He denies angina, syncope, palpitations, edema, nausea, vomiting, or abdominal pain. He received PRBC x 2 prior to today's consultation as his presenting hemoglobin was 6.7 on 03/28/2024. His Plavix and Eliquis were held on presentation. GI was consulted. In the past, he has had multiple PCI (he believes 4 stents). His most recent cardiac catheterization was 02/09/2024 which demonstrated nonobstructive CAD with probable TOLL GATE KEEPER of the PDA with left to right and right to right collaterals. Medical therapy was recommended. He also had been noted to be in atrial fibrillation with RVR and underwent cardioversion on 12/18/2023. He had been maintained on amiodarone, although amiodarone is no longer listed as a home medication. He is not aware of all of his medications. According to EMR, amiodarone was discontinued following his cardiac catheterization with Dr. Calvillo on 02/08/2024. Given severely reduced LV systolic function, he has been wearing a LifeVest for the past few months. Review of systems: As above. Review of systems otherwise negative/unremarkable. Family history: No known premature CAD. Social history: Denies smoking. Rare alcohol. No drugs. Lives alone. ( in 2022). 2 daughters. 2 grandchildren. He was unaccompanied. Allergies Allergy/AdvReac Type Severity Reaction Status Date / Time No Known Drug Allergies Allergy Unknown Unknown Verified 02/23/24 14:44 Home Medications Medication Instructions Recorded Confirmed Type allopurinol 100 mg tablet 100 mg PO QAM 02/20/22 03/17/24 History ascorbic acid (vitamin C) 1,000 mg 1 g PO QAM 02/20/22 03/17/24 History capsule atorvastatin 80 mg tablet 80 mg PO HS 02/20/22 03/17/24 History multivitamin 1 tab PO QAM 02/20/22 03/17/24 History nitroglycerin 0.4 mg sublingual 0.4 mg sublingual Q5M PRN Chest 02/20/22 03/17/24 History tablet Pain tamsulosin 0.4 mg capsule 0.4 mg PO HS 10/08/23 03/17/24 History apixaban 5 mg tablet (Eliquis) 5 mg PO BID #180 tabs 12/11/23 03/17/24 Rx clopidogrel 75 mg tablet 75 mg PO HS 12/17/23 03/17/24 History fexofenadine 180 mg tablet 180 mg PO QAM 12/17/23 03/17/24 History (Allergy Relief (fexofenadine)) potassium chloride 20 mEq 20 meq PO BID 12/17/23 03/17/24 History tablet,extended release(part/cryst) metoprolol succinate 50 mg 50 mg PO DAILY #30 tabs 12/21/23 03/17/24 Rx tablet,extended release 24 hr vitamin E (dl, acetate) 180 mg 180 mg PO BID 01/27/24 03/17/24 History (400 unit) capsule sacubitril 24 mg-valsartan 26 mg 1 tab PO BID #180 tabs 02/08/24 03/17/24 Rx tablet (Entresto) furosemide 20 mg tablet (Lasix) 20 mg PO QAM 03/17/24 03/17/24 History isosorbide mononitrate 30 mg 30 mg PO QAM 03/17/24 03/17/24 History tablet,extended release 24 hr vitamin B complex 1 tab PO QAM 03/17/24 03/17/24 History pantoprazole 40 mg tablet,delayed 40 mg PO BID #60 tabs 03/19/24 Rx release (Protonix) Problem List (Updated 03/29/24 @ 13:22 by Ayush Cason MD) Heart failure with improved ejection fraction (HFimpEF) Mitral regurgitation Acute blood loss anemia Duodenitis Erosive gastropathy Symptomatic anemia (Acute) Anemia requiring transfusions (Acute) Acute GI bleeding (Acute) Hip pain, right GI bleed due to NSAIDs Acute systolic (congestive) heart failure Cardiomyopathy SOB (shortness of breath) Elevated brain natriuretic peptide (BNP) level (Acute) Atrial fibrillation with rapid ventricular response (Acute) Benign essential hypertension Carotid artery stenosis CAD (coronary artery disease) 2012 > stents x3 PAF (paroxysmal atrial fibrillation) Carotid artery stenosis Unifocal PVCs Stented coronary artery Elevated PSA Heart disease Gout Vitamin D deficiency HTN (hypertension) Hyperlipidemia Prostate cancer (Chronic) Patient History Medical History Heart failure with reduced ejection fraction Anemia Aortic stenosis Mild per 04/2022 echo Myocardial infarction 2012- w/ cardio (Dr Kristina Ornelas) Surgical History Hx of colonoscopy Hx of cardiac catheterization 2012 Hx of heart artery stent 2013 > stents x3 History of hip surgery Left History of prostate biopsy Dr. Matthew Faye at [facility] History of tonsillectomy and adenoidectomy History of arthroscopic knee surgery History of back surgery x 5 surgeries after a skiing accident ~ 51 yrs ago Family History Father , Passed age 89 Pancreatic cancer Mother No problems noted. Sister No problems noted. Sister No problems noted. Brother No problems noted. Daughter No problems noted. Social History Smoking Status: Never smoker Second Hand Exposure: No; Do You Dip or Chew Tobacco: No; Hx Alcohol Use: Yes Alcohol type: beer Alcohol Intake Frequency: Monthly or Less Hx Substance Use: No Preferred Language: Ukrainian Communication Ability: Effective Visual Impairment: Limited Hearing Ability: Normal Transit Bus Driver Required: No Beliefs That Will Affect Care: None marital status: Current Living Situation: Alone Current Living Situation Comment: Lives at home alone current occupational status: employed current occupation: [employer] How many Children do You have: 1 Feels Safe at Home: Yes Childhood Exposure to Second-Hand Smoke: No Diet: regular caffeine: Yes (1 cup of coffee daily) during the past year weight has: remained stable Dental Care, Regularly: Yes Assistive Devices: None Physical Exam Physical Exam: Gen.: No acute distress. Alert and oriented. HEENT: Anicteric sclera. Neck: No JVD. Normal carotid upstrokes bilaterally. Cardiac: Regular. Normal S1-S2. 1/6 systolic murmur. Pulmonary: Clear to auscultation bilaterally without wheezes, rales, or rhonchi. Abdomen: Soft, nontender, nondistended, with normoactive bowel sounds. No bruits noted. Extremities: 2+ radial pulses bilaterally. 2+ posterior tibialis pulses bilaterally. No edema or cyanosis. Psychiatric: Affect appears appropriate. Results & Data Vital Signs (Past 12 Hours) Vital Signs Temp Pulse Pulse Resp BP BP Pulse Ox 03/29/24 07:43 36.9 C 73 18 113/63 96 03/29/24 03:12 36.8 C 60 18 98/64 L 94 03/29/24 02:15 74 03/29/24 02:10 36.7 C 74 18 95/59 L 93 03/29/24 02:09 36.7 C 74 18 95/59 L 93 03/29/24 01:44 36.6 C 73 18 100/62 93 03/29/24 01:09 36.8 C 70 18 102/63 92 03/29/24 00:39 36.8 C 79 18 96/60 L 95 03/29/24 00:24 36.8 C 75 18 98/54 L 95 03/29/24 00:08 37.0 C 73 18 119/76 95 03/28/24 23:41 03/28/24 23:41 36.7 C 76 18 132/64 99 03/28/24 22:58 36.9 C 76 18 118/77 97 03/28/24 22:58 36.9 C 82 19 92/52 L 97 O2 Del Method O2 Flow Rate 03/29/24 07:43 Room Air 03/29/24 03:12 Room Air 03/29/24 02:15 03/29/24 02:10 0 03/29/24 02:09 03/29/24 01:44 03/29/24 01:09 03/29/24 00:39 03/29/24 00:24 03/29/24 00:08 0 03/28/24 23:41 Room Air 03/28/24 23:41 Room Air 03/28/24 22:58 03/28/24 22:58 Room Air Laboratory Results Laboratory Results - last 24 hr 03/28/24 03/29/24 18:58 03:10 WBC 5.59 4.02 L RBC 2.31 L 2.86 L Hgb 6.7 L* 8.2 L Hct 22.9 L 26.7 L MCV 99.1 93.4 D MCH 29.0 28.7 MCHC 29.3 L 30.7 L RDW Std Deviation 64.4 H 58.3 H RDW Coeff of Carrol 19.3 H 18.7 H Plt Count 326 223 MPV 11.0 10.8 Immature Gran % (Auto) 0.7 0.7 Neut % (Auto) 72.3 69.5 Lymph % (Auto) 9.3 10.7 [place] % (Auto) 9.5 10.9 Eos % (Auto) 7.7 7.7 Baso % (Auto) 0.5 0.5 Neut # (Auto) 4.04 2.79 Lymph # (Auto) 0.52 L 0.43 L [place] # (Auto) 0.53 0.44 Eos # (Auto) 0.43 0.31 Baso # (Auto) 0.03 0.02 Immature Gran # (Auto) 0.04 0.03 Absolute Nucleated RBC 0.08 0.02 Nucleated RBC % (auto) 1.4 0.5 Polychromasia 2+ Sodium 138 140 Potassium 4.0 3.8 Chloride 107 111 H Carbon Dioxide 22 22 Anion Gap 9 7 BUN 36 H 34 H Creatinine 1.28 1.05 Est Cr Clr Drug Dosing 50.5 61.5 Est GFR ( Amer) 64.4 81.8 Est GFR (Non-Af Amer) 55.5 70.6 BUN/Creatinine Ratio 28.1 H 32.4 H Glucose 124 H 103 H Calcium 8.9 8.2 L Magnesium 2.1 2.0 Iron 56 TIBC 321 Unsaturated IBC 265 Transferrin % Sat 17 L Ferritin 730.0 H Total Bilirubin 0.4 0.7 AST 14 12 L ALT 12 9 Alkaline Phosphatase 92 72 Total Protein 6.4 5.2 L Albumin 4.0 3.3 L Globulin 2.4 L 1.9 L Albumin/Globulin Ratio 1.7 1.7 Blood Type A Positive Antibody Screen NEGATIVE Crossmatch See Detail Diagnostic Findings Telemetry personally reviewed: Sinus rhythm. Echo report reviewed from 01/25/2024: LV EF 30 to 35%. Hypokinesis of the basal to mid inferior wall, mid to distal inferoseptum, basal to mid anterolateral wall and basal inferolateral wall segments. Akinesis of the mid inferolateral wall and distal anterolateral wall segments. At least moderate MR. Probably no more than mild . Mild AI. History and physical report reviewed. ECG personally reviewed from 03/17/2024: Sinus rhythm 96 bpm. Inferior infarct. Labs reviewed and notable for stable renal function, elevated BUN, normal potassium, nonelevated transaminase levels, improved hemoglobin from a low of 6.7 on presentation up to 8.2 currently. Outpatient cardiology note reviewed. Cardiac cath 02/09/2024 report reviewed: Proximal LAD stent with minimal in-stent restenosis. Mid LAD 40 to 50%. Distal LAD 50 to 60%. OM1 proximal 40% and mid 30%. Proximal RCA 40%. Mid RCA mild CAD. PDA TOLL GATE KEEPER, filling via right to right and [id number] collaterals. Medications Administered Current Inpatient Medications Acetaminophen (Ofirmev) 1,000 mg in 100 mls @ 400 mls/hr IV Q8H PRN PRN Reason: Pain or Fever Stop: 03/31/24 21:55 Ceftriaxone Sodium (Rocephin) 2,000 mg in 50 mls @ 100 mls/hr IV Q24H ANDIE Stop: 04/07/24 21:59 Last Infusion: 03/28/24 23:04 Dose: Infused Potassium Chloride/Sodium Chloride (Normal Saline W/20 Meq Kcl) 20 meq in 1,000 mls @ 60 mls/hr IV .[id number] ANDIE Stop: 03/29/24 16:14 Last Admin: 03/29/24 02:10 Dose: 60 mls/hr Pantoprazole Sodium 40 mg/ (Syringe) 10 mls @ 5 mls/min IV BID ANDIE Stop: 04/28/24 08:59 Last Admin: 03/29/24 08:18 Dose: 5 mls/min PG Care Time/CCT Total # of Minutes Spent Total Time Spent with Patient: Total time spent is greater than 50% in coordination of care (as documented) at patient's floor/unit and/or counseling patient: Coding Level of Care Code 72984 INT INP/OBS CARE 3/75MIN Diagnoses Cardiomyopathy I42.9 CAD (coronary artery disease) I25.10 PAF (paroxysmal atrial fibrillation) I48.0 Acute blood loss anemia D62 Acute GI bleeding K92.2 Mitral regurgitation I34.0 Heart failure with improved ejection fraction (HFimpEF) I50.32
[2024-03-29 11:23] LABS: Hemoglobin 8.5 g/dl (14.0-18.0)
--- NOTE | 2024-03-29 12:49 | XCELERA ---
[id number] [id number]
[2024-03-29] MEDS: METOPROLOL SUCC 50MG EXT REL TAB PO SCH (14:25)
[2024-03-29 17:43] LABS: Hematocrit (blood only) 26.2 % (42.0-52.0); Hemoglobin 8.3 g/dl (14.0-18.0)
[2024-03-29 19:38] LABS: Hematocrit (blood only) 26.2 % (42.0-52.0); Hemoglobin 7.9 g/dl (14.0-18.0)
[2024-03-29] MEDS: ATORVASTATIN 40 MG TAB PO SCH (21:25)
[2024-03-30 06:40] LABS: Basophils # (auto) 0.03 K/uL (0.00-0.20); Basophils % (auto) 0.8 %; Eosinophils # (auto) 0.32 K/uL (0.00-0.50); Hematocrit (blood only) 28.1 % (42.0-52.0); Hemoglobin 8.5 g/dl (14.0-18.0); Immature Granulocytes # (auto) 0.02 K/uL (0.01-0.20); Immature Granulocytes % (auto) 0.5 %; Lymphocytes # (auto) 0.41 K/uL (1.20-3.40); Lymphocytes % (auto) 10.3 %; Mean Corpuscular Hemoglobin 28.9 pg (25.0-34.0); Mean Corpuscular Hgb Conc 30.2 g/dL (32.0-36.0); Mean Corpuscular Volume 95.6 fL (80.0-100.0); Monocytes # (auto) 0.46 K/uL (0.11-0.59); Monocytes % (auto) 11.5 %; Neutrophils # (auto) 2.76 K/uL (1.40-6.50); Neutrophils % (auto) 68.9 %; Platelet Count 260 K/uL (130-400); RDW Coefficient of Variation 20.3 % (11.5-14.5); RDW Standard Deviation 62.8 fL (36.4-46.3); Red Blood Count 2.94 M/uL (4.70-6.10)
[2024-03-30 07:11] LABS: Albumin Globulin Ratio 1.6 (0.9-2); Albumin Level 3.3 gm/dl (3.4-5.0); BUN Creatinine Ratio 20.5 (10-20); Bilirubin,Total 0.8 mg/dl (0.2-1.0); Calcium 8.5 mg/dl (8.6-10.3); Creatinine Clr Calc Pharmacy 57.7 ml/min; Est GFR (African American) 75.7 ml/min; Est GFR (Non-African American) 65.3 ml/min; Globulin 2.1 gm/dl (2.5-4.0); Magnesium 1.9 mg/dl (1.7-2.4); Potassium 4.4 mmol/L (3.5-5.1); Total Protein 5.4 gm/dl (6.0-8.3)
--- NOTE | 2024-03-30 07:13 | Billing Data ---
Date of Service March 29, 2024 Coding Level of Care Code 87596 SUB INP/OBS CARE
[2024-03-30 07:23] LABS: Anisocytosis Present; Polychromasia 1+
[2024-03-30] MEDS: ASPIRIN 81 MG ECTAB PO SCH (09:46)
--- NOTE | 2024-03-30 10:16 | Cardiology Progress Note ---
Date of Service March 30, 2024 Assessment & Plan (1) Cardiomyopathy: (2) CAD (coronary artery disease): (3) PAF (paroxysmal atrial fibrillation): (4) Acute blood loss anemia: (5) Acute GI bleeding: (6) Mitral regurgitation: (7) Heart failure with improved ejection fraction (HFimpEF): Plan ASSESSMENT/PLAN: 1. Cardiomyopathy: LV systolic function has normalized. Cardiomyopathy was likely tachycardia induced given his episode of A-fib with RVR in December 2023. Further titration of heart failure medication is not necessary. LifeVest can be discontinued. He does not qualify for ICD for primary prevention. 2. Heart failure with improved EF: LV systolic function has normalized. He apparently required diuresis in December 2023 when he presented with A-fib with RVR. Heart failure at that time was likely driven by tachycardia induced cardiomyopathy with ongoing tachycardia. If any evidence of heart failure in the future, could consider SGLT2 inhibitor. Otherwise, recommend continuation of his current regimen of low-dose Entresto and metoprolol succinate 50 mg daily. Entresto can be resumed once GI bleed has resolved, so as not to precipitate hypotension if he should have more significant bleeding while hospitalized. 3. Paroxysmal atrial fibrillation: Had been on amiodarone in the past. Currently in sinus rhythm. Beta-marques. Given recurrent GI bleed with profound anemia requiring 5 units of PRBC thus far this month, recommend discontinuation of anticoagulation therapy for now. If his GI issues resolved, could consider resuming anticoagulation therapy but otherwise, would consider Watchman device. This can be further discussed with his primary electrical systems engineer, Dr. Mart, in the outpatient setting. 4. Acute blood loss anemia with recurrent GI bleed: From a cardiac standpoint, single antiplatelet therapy is recommended. After discussion with GI on 03/29/24, GI prefers aspirin rather than Plavix as long as he is able to maintain appropriate PPI. Unfortunately, had his largest melanotic stool today, before receiving aspirin. Hold aspirin for now until his significant GI bleed resolves. Monitor for recurrent bleeding. If Plavix is felt to be a better option in the future for his erosive gastritis, Plavix would also be suitable from a cardiac standpoint. He also is s/p TCAR and would defer to vascular surgery in regards to long-term antiplatelet therapy in this situation. 5. CAD s/p PCI: Single antiplatelet therapy is suitable from a cardiac standpoint. After discussion with GI, aspirin is preferred with recurrent GI bleeding from their standpoint. Can resume aspirin 81 mg when his significant bleeding resolves and GI feels it is safe to do so. Continue beta-marques. Can sinew high intensity statin therapy. 6. Mitral regurgitation: Can be followed in the outpatient setting with Dr. Mart. 7. Disposition: Please call with any further questions or concerns. Recommend close follow-up with Dr. Mart in the outpatient setting. Patient care communicated with primary hospitalist, Bella Pineda PA-C. Admission and Anticipated Discharge Date Admission Date: March 28, 2024 Subjective Patient updated today that he no longer requires a LifeVest. While in the room, he reported that he had his largest melanotic stool that he ever had. That occurred today before he received aspirin. He then received aspirin 81 mg. He reports that he had smaller melanotic stools yesterday throughout the day. He denies chest pain, shortness of breath. Nursing staff was present at the bedside. Physical Exam Physical Exam: Gen.: No acute distress. Alert and oriented. HEENT: Anicteric sclera. Neck: No JVD. Cardiac: Regular. Normal S1-S2. 1/6 systolic murmur. Pulmonary: Clear to auscultation bilaterally without wheezes, rales, or rhonchi. Abdomen: Soft, nontender, nondistended, with normoactive bowel sounds. No bruits noted. Extremities: 2+ radial pulses bilaterally. 2+ posterior tibialis pulses bilaterally. No edema or cyanosis. Psychiatric: Affect appears appropriate. Results & Data Vital Signs (Past 12 Hours) Vital Signs Temp Pulse Pulse Resp BP Pulse Ox O2 Del Method 03/30/24 08:10 37.0 C 71 18 112/61 98 Room Air 03/30/24 07:37 75 03/30/24 02:54 36.4 C L 69 18 104/67 95 Room Air 03/29/24 23:44 37.0 C 77 18 107/65 95 Room Air Laboratory Results Laboratory Results - last 24 hr 03/29/24 03/29/24 03/29/24 10:59 17:25 19:15 WBC RBC Hgb 8.5 L 8.3 L 7.9 L Hct 27.0 L 26.2 L 26.2 L MCV MCH MCHC RDW Std Deviation RDW Coeff of Carrol Plt Count MPV Immature Gran % (Auto) Neut % (Auto) Lymph % (Auto) [place] % (Auto) Eos % (Auto) Baso % (Auto) Neut # (Auto) Lymph # (Auto) [place] # (Auto) Eos # (Auto) Baso # (Auto) Immature Gran # (Auto) Polychromasia Anisocytosis Sodium Potassium Chloride Carbon Dioxide Anion Gap BUN Creatinine Est Cr Clr Drug Dosing Est GFR ( Amer) Est GFR (Non-Af Amer) BUN/Creatinine Ratio Glucose Calcium Magnesium Total Bilirubin AST ALT Alkaline Phosphatase Total Protein Albumin Globulin Albumin/Globulin Ratio 03/30/24 05:47 WBC 4.00 L RBC 2.94 L Hgb 8.5 L Hct 28.1 L MCV 95.6 MCH 28.9 MCHC 30.2 L RDW Std Deviation 62.8 H RDW Coeff of Carrol 20.3 H Plt Count 260 MPV 11.0 Immature Gran % (Auto) 0.5 Neut % (Auto) 68.9 Lymph % (Auto) 10.3 [place] % (Auto) 11.5 Eos % (Auto) 8.0 Baso % (Auto) 0.8 Neut # (Auto) 2.76 Lymph # (Auto) 0.41 L [place] # (Auto) 0.46 Eos # (Auto) 0.32 Baso # (Auto) 0.03 Immature Gran # (Auto) 0.02 Polychromasia 1+ Anisocytosis Present Sodium 141 Potassium 4.4 Chloride 112 H Carbon Dioxide 24 Anion Gap 5 BUN 23 Creatinine 1.12 Est Cr Clr Drug Dosing 57.7 Est GFR ( Amer) 75.7 Est GFR (Non-Af Amer) 65.3 BUN/Creatinine Ratio 20.5 H Glucose 102 H Calcium 8.5 L Magnesium 1.9 Total Bilirubin 0.8 AST 13 ALT 9 Alkaline Phosphatase 76 Total Protein 5.4 L Albumin 3.3 L Globulin 2.1 L Albumin/Globulin Ratio 1.6 Diagnostic Findings Labs reviewed and notable for stable renal function, persistent anemia. Medications Administered Current Inpatient Medications Aspirin (Aspirin 81 Mg Ectab) 81 mg PO QA ANDIE Stop: 04/29/24 08:59 Last Admin: 03/30/24 09:46 Dose: 81 mg Atorvastatin Calcium (Atorvastatin 40 Mg Tab) 80 mg PO HS ANDIE Stop: 04/28/24 20:59 Last Admin: 03/29/24 21:25 Dose: 80 mg Acetaminophen (Ofirmev) 1,000 mg in 100 mls @ 400 mls/hr IV Q8H PRN PRN Reason: Pain or Fever Stop: 03/31/24 21:55 Pantoprazole Sodium 40 mg/ (Syringe) 10 mls @ 5 mls/min IV BID [facility] Stop: 04/28/24 08:59 Last Admin: 03/30/24 09:46 Dose: 5 mls/min Metoprolol Succinate (Metoprolol Succ 50mg Ext Rel Tab) 50 mg PO QAM [facility] Stop: 04/28/24 13:44 Last Admin: 03/30/24 09:46 Dose: 50 mg PG Care Time/CCT Total # of Minutes Spent Total Time Spent with Patient: Total time spent is greater than 50% in coordination of care (as documented) at patient's floor/unit and/or counseling patient: Coding Level of Care Code 56460 SUB INP/OBS CARE 3/50MIN Diagnoses Cardiomyopathy I42.9 CAD (coronary artery disease) I25.10 PAF (paroxysmal atrial fibrillation) I48.0 Acute blood loss anemia D62 Acute GI bleeding K92.2 Mitral regurgitation I34.0 Heart failure with improved ejection fraction (HFimpEF) I50.32
--- NOTE | 2024-03-30 11:12 | Gastroenterology Progress Note ---
Date of Service March 30, 2024 Assessment & Plan (1) Acute blood loss anemia: (2) Duodenitis: (3) Erosive gastropathy: Plan See cardiology note regarding Aspirin, Eliquis, Plavix. -Continue Protonix IV 40 mg BID -Continue to monitor H/H -NPO after midnight for EGD on 03/31/24 Admission and Anticipated Discharge Date Admission Date: March 28, 2024 Supervising Physician Co-Signing Physician Notes I examined the patient and reviewed patient's chart , laboratory data and imaging studies. I agree with with assessment and plan of care as suggested by advanced practice provider. Recurrent melena. Fortunately the patient is hemodynamically stable. No significant change in hemoglobin. Repeat upper endoscopy tomorrow. Subjective Patient is a 73 yo male with melena, anemia, & erosive gastropathy/duodenitis found 2 weeks ago on EGD. He is on IV Protonix 40 mg BID. Eliquis & Plavix held. Patient was to begin Aspirin, but had a significant episode of melena this AM and this is now held. H/H 8.5/28.1. Review of Systems Gastrointestinal: + melena; no abdominal pain Physical Exam Gastrointestinal (Abdomen): normal bowel sounds, soft, nontender, no hepatosplenomegaly Results & Data Results & Data Vital Signs (Past 12 Hours) Vital Signs Temp Pulse Pulse Resp BP Pulse Ox O2 Del Method 03/30/24 08:10 37.0 C 71 18 112/61 98 Room Air 03/30/24 07:37 75 03/30/24 02:54 36.4 C L 69 18 104/67 95 Room Air 03/29/24 23:44 37.0 C 77 18 107/65 95 Room Air PG Care Time/CCT Total # of Minutes Spent Total Time Spent with Patient: Total time spent is greater than 50% in coordination of care (as documented) at patient's floor/unit and/or counseling patient: Coding Level of Care Code 45579 SUB INP/OBS CARE 3/50MIN Diagnoses Acute blood loss anemia D62 Duodenitis K29.80 Erosive gastropathy K31.89
[2024-03-30] MEDS: IRON SUCROSE 300 MG in SODIUM CHLORIDE 0.9% 250 ML IV ONE (11:38)
--- NOTE | 2024-03-30 12:17 | Hospitalist Progress Note ---
Date of Service March 30, 2024 Assessment & Plan (1) Symptomatic anemia: Plan: Anemia requiring transfusions Previous admission 03/17 - 03/19/2024 requiring transfusions. Presenting with weakness, melanotic stool; admitting hemoglobin 6.7, requiring 2 units PRBC. Anticoagulated on Eliquis until 03/29/2024. Continues to experience melanotic stools and generalized weakness. - Outpatient 03/28 hemoglobin 6.3; repeat in ED was hemoglobin 6.7. Received 2 units PRBCs - H/H on 03/29 was 8.2/26.7, on 03/30 was 8.5/28.1, improving - Ferritin elevated, transfer 10 sat is less than 20%. Patient received IV iron at [facility] 1 week prior to admission. - H&H every 4 hours - Every AM CBC with differential, chemistry profile and magnesium levels - Experienced large sticky, tar-like stool a.m. of 03/30 as well as ongoing weakness. Cardiology recommends holding aspirin at this time - Venofer 300 mg x 1; recommend repeat labs at outpt facility in a few weeks, following discharge (2) Acute GI bleeding: Plan: Erosive gastropathy Duodenitis - EGD 03/18/24; diagnosis of erosive gastropathy and erythematous duodenitis, was discharged on pantoprazole 40 mg p.o. twice daily, missed 3 initial doses - GI consulted: Recommend continue IV protonix BID, discharge on pantoprazole 40 mg BID - NSS + KCl 20 mill equivalents at 80 mL/h - WBC 5.59, differential not indicating infection; discontinued Ceftriaxone 2 g IV daily - Discussed with GI regarding diet; EGD will not be completed. Change to clear liquid diet, increase as tolerated. - Melanotic stool 03/30; maintain clear liquid diet until further notice. - Appreciate ongoing GI input (3) CAD (coronary artery disease): Plan: Hypertension/PAF/stented coronary arteries/cardiomyopathy - On clear liquids - Consulted cardiology to coordinate with GI and medicine regarding relative risk of being on Plavix and apixaban with continued GI bleeding. - Echocardiogram (03/29). EF 55-60% - GI prefers aspirin rather than Plavix; stop Plavix and continue on PPI therapy. Had started ASA 81 mg - Hold ASA until resolution of melanotic stools, per card recommendation - Continue metoprolol succinate and entresto - Continue isosorbide mononitrate, furosemide - Discontinue lifevest; Cardiology recommends considering Watchman procedure - Appreciate ongoing cardiology input (4) Acute blood loss anemia: Plan: As above (5) Heart failure with improved ejection fraction (HFimpEF): Plan: As above (6) PAF (paroxysmal atrial fibrillation): Plan: As above Plan Hyperlipidemia- - Continue atorvastatin Gout- - Holding allopurinol DVT: previously anticoagulated on Eliquis, SCDs now Dispo: Pending improvement of Hgb/Hct Admission and Anticipated Discharge Date Admission Date: March 28, 2024 Supervising Physician Co-Signing Physician Notes Attending Attestation & Progress Note: Pt seen/examined, chart reviewed, care plan d/w MARY Pineda. I agree w/ the matthew components of her documentation. Pt had large melena stool this am in the absence of N/V/abd pain. H/H this am and at noon unchanged from yesterday. He feels weak, and did feel dizzy with walking this afternoon. To have EGD tomorrow. Daughter at bedside during my visit. exam: gen - NAD, laying in bed, generalized pallor neck - no JVD heart - RRR, s1 s2, no murmur lungs - faint, dry rales bases only; no wet rales abd - soft NT ND BS+ ext - no edema, pulses 2+ b/l A/P: 1. recurrent, presumed upper GI bleeding 2. recent hospital stay 2nd to #1 and #3, s/p EGD with erosive gastropathy & duodenopathy likely 2nd NSAIDs 3. acute blood loss anemia 4. iron deficiency 5. h/o PAF on Eliquis 6. CAD 7. h/o cardiomyopathy - previous EF 20-25%, EF now 55-60% Repeat another H/H this evening due to large melena stool this am Check orthostatics given his dizziness If orthos are + OR if H/H drop would give 1 unit of PRBCs this evening Recheck CBC am cont PPI BID NPO after MN tonight for EGD tomorrow daughter updated at bedside Walt Goldsmith MD Subjective Patient is seen laying in his bed at the time of visit. States that this morning, he experienced a melanotic stool that had been worse than previously. He states that his weakness continues to be at the severity that it was when he was first admitted and has not improved. He denies abdominal pain, nausea, vomiting, chest pain, shortness of breath, or palpitations. Telemetry as follows: NSR some PAC, rate 60-124. Review of Systems Constitutional: + weakness Respiratory: no dyspnea Cardiovascular: no palpitations, no lightheadedness, no syncope and no edema Gastrointestinal: + melena; no abdominal pain, no nausea, no vomiting, no hematemesis, no excessive flatulence and no constipation Neurologic: + generalized weakness; no tingling and no numbness Physical Exam Respiratory: normal respiratory effort, lungs clear to auscultation Cardiovascular: RRR, no murmur, no edema Gastrointestinal (Abdomen): Inspection/Auscultation: normal bowel sounds Percussion/Palpation: abdomen soft; abdomen nontender, no guarding and no abdominal mass Skin: + pallor Results & Data Results & Data Vital Signs (Past 12 Hours) Vital Signs Temp Pulse Pulse Resp BP Pulse Ox O2 Del Method 03/30/24 11:46 37.3 C 71 18 117/68 96 Room Air 03/30/24 08:10 37.0 C 71 18 112/61 98 Room Air 03/30/24 07:37 75 03/30/24 02:54 36.4 C L 69 18 104/67 95 Room Air Laboratory Results CBC: RBC 2.94, hemoglobin 8.5, hematocrit 28.1, MCHC 30.2 Chemistry: Chloride 112, calcium 8.5 PG Care Time/CCT Total # of Minutes Spent Total Time Spent with Patient: Total time spent is greater than 50% in coordination of care (as documented) at patient's floor/unit and/or counseling patient: Coding Level of Care Code None Diagnoses Symptomatic anemia D64.9 Acute GI bleeding K92.2 CAD (coronary artery disease) I25.10 Acute blood loss anemia D62 Heart failure with improved ejection fraction (HFimpEF) I50.32 PAF (paroxysmal atrial fibrillation) I48.0
[2024-03-30 12:34] LABS: Basophils # (auto) 0.02 K/uL (0.00-0.20); Basophils % (auto) 0.5 %; Eosinophils # (auto) 0.28 K/uL (0.00-0.50); Eosinophils % (auto) 6.7 %; Hematocrit (blood only) 28.8 % (42.0-52.0); Hemoglobin 8.6 g/dl (14.0-18.0); Immature Granulocytes # (auto) 0.02 K/uL (0.01-0.20); Immature Granulocytes % (auto) 0.5 %; Lymphocytes # (auto) 0.37 K/uL (1.20-3.40); Lymphocytes % (auto) 8.8 %; Mean Corpuscular Hemoglobin 28.8 pg (25.0-34.0); Mean Corpuscular Hgb Conc 29.9 g/dL (32.0-36.0); Mean Corpuscular Volume 96.3 fL (80.0-100.0); Mean Platelet Volume 10.8 fL (9.4-12.4); Monocytes # (auto) 0.29 K/uL (0.11-0.59); Monocytes % (auto) 6.9 %; Neutrophils # (auto) 3.22 K/uL (1.40-6.50); Neutrophils % (auto) 76.6 %; Platelet Count 265 K/uL (130-400); RDW Coefficient of Variation 20.4 % (11.5-14.5); RDW Standard Deviation 63.3 fL (36.4-46.3); Red Blood Count 2.99 M/uL (4.70-6.10)
[2024-03-30 13:00] LABS: Anisocytosis Present; Polychromasia 1+
[2024-03-30 19:53] LABS: Hematocrit (blood only) 25.5 % (42.0-52.0); Hemoglobin 7.7 g/dl (14.0-18.0); Mean Corpuscular Hemoglobin 28.7 pg (25.0-34.0); Mean Corpuscular Hgb Conc 30.2 g/dL (32.0-36.0); Mean Corpuscular Volume 95.1 fL (80.0-100.0); Mean Platelet Volume 10.6 fL (9.4-12.4); Platelet Count 249 K/uL (130-400); RDW Coefficient of Variation 20.4 % (11.5-14.5); Red Blood Count 2.68 M/uL (4.70-6.10); White Blood Count 3.97 K/ul (4.8-10.8)
[2024-03-30] MEDS ORDERED: SODIUM CHLORIDE 0.9% 250 ML IV PRN (21:54)
--- NOTE | 2024-03-30 23:42 | Billing Data ---
Date of Service March 30, 2024 Coding Level of Care Code 22487 SUB INP/OBS CARE MIN
[2024-03-31 07:03] LABS: Basophils # (auto) 0.02 K/uL (0.00-0.20); Basophils % (auto) 0.5 %; Eosinophils # (auto) 0.34 K/uL (0.00-0.50); Eosinophils % (auto) 8.4 %; Hematocrit (blood only) 29.1 % (42.0-52.0); Immature Granulocytes # (auto) 0.02 K/uL (0.01-0.20); Immature Granulocytes % (auto) 0.5 %; Lymphocytes # (auto) 0.37 K/uL (1.20-3.40); Lymphocytes % (auto) 9.1 %; Mean Corpuscular Hgb Conc 30.9 g/dL (32.0-36.0); Mean Corpuscular Volume 93.9 fL (80.0-100.0); Monocytes # (auto) 0.42 K/uL (0.11-0.59); Monocytes % (auto) 10.3 %; Neutrophils % (auto) 71.2 %; Platelet Count 226 K/uL (130-400); RDW Coefficient of Variation 19.4 % (11.5-14.5); RDW Standard Deviation 58.8 fL (36.4-46.3); White Blood Count 4.07 K/ul (4.8-10.8)
[2024-03-31 08:40] LABS: Calcium 8.3 mg/dl (8.6-10.3); Potassium 3.9 mmol/L (3.5-5.1)
[2024-03-31 08:46] LABS: Creatinine Clr Calc Pharmacy 64.6 ml/min; Est GFR (African American) 86.8 ml/min; Est GFR (Non-African American) 74.9 ml/min
--- NOTE | 2024-03-31 09:36 | History & Physical Bridge Note ---
Date of Service March 31, 2024 History & Physical Bridge Note I have examined the patient, reviewed the History & Physical and in the interval since the performance of the History & Physical I have noted the following changes of clinical significance: Patient notes he received another unit of PRBCs last evening. He notes melena last evening when his hgb dipped to 7.7. He is now at 9.0/29.1. Aspirin held. He has been NPO. Proceed with EGD today. Continue to monitor H/H, continue to monitor for overt GI bleeding. Protonix drip. Supervising Physician Co-Signing Physician Notes I examined the patient and reviewed patient's chart , laboratory data and imaging studies. I agree with with assessment and plan of care as suggested by advanced practice provider
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
[2024-03-31] MEDS: PANTOprazole 40 MG in DEXTROSE 5% MINI-B 100 ML IV SCH (10:53)
--- NOTE | 2024-03-31 11:56 | Hospitalist Progress Note ---
Date of Service March 31, 2024 Assessment & Plan (1) Symptomatic anemia: Plan: Anemia requiring transfusions Previous admission 03/17 - 03/19/2024 requiring transfusions. Presenting with weakness, melanotic stool; admitting hemoglobin 6.7, requiring 2 units PRBC. Anticoagulated on Eliquis until 03/29/2024. Continues to experience melanotic stools and generalized weakness. - Outpatient 03/28 hemoglobin 6.3; repeat in ED was hemoglobin 6.7. Received 3 total units PRBCs - H/H on 03/29 was 8.2/26.7, on 03/30 was 8.5/28.1, 03/31 9.0/29.1, improving - Ferritin elevated, transfer 10 sat is less than 20%. Patient received IV iron at [facility] 1 week prior to admission. - Every AM CBC and BMP - Experienced large sticky, tar-like stool a.m. of 03/30 as well as ongoing weakness. Cardiology recommends holding aspirin at this time. - Venofer 300 mg x 1 given; recommend repeat labs at outpt facility in a few weeks, following discharge. (2) Acute GI bleeding: Plan: Erosive gastropathy Duodenitis - EGD 03/18/24; diagnosis of erosive gastropathy and erythematous duodenitis, was discharged on pantoprazole 40 mg p.o. twice daily, missed 3 initial doses - GI consulted: Recommend continue IV protonix BID, discharge on pantoprazole 40 mg BID, will repeat EGD 03/31; n.p.o. until after EGD - WBC 5.59, differential not indicating infection; discontinued Ceftriaxone 2 g IV daily - continues to experience Melanotic stool daily - Appreciate ongoing GI input (3) CAD (coronary artery disease): Plan: Hypertension/PAF/stented coronary arteries/cardiomyopathy -Cardiology and GI consulted; stopped Plavix and continue on PPI therapy. Had started ASA 81 mg, but currently held given continued bleed - Hold ASA until resolution of melanotic stools, per card recommendation - Echocardiogram (03/29). EF 55-60% - Continue metoprolol succinate and entresto - Continue isosorbide mononitrate, furosemide - Discontinue lifevest; Cardiology recommends considering Watchman procedure - Appreciate ongoing cardiology input (4) Acute blood loss anemia: Plan: As above (5) Heart failure with improved ejection fraction (HFimpEF): Plan: As above (6) PAF (paroxysmal atrial fibrillation): Plan: As above Plan Hyperlipidemia- - Continue atorvastatin Gout- - Holding allopurinol DVT: previously anticoagulated on Eliquis, SCDs now Dispo: Pending improvement of Hgb/Hct, EGD results Admission and Anticipated Discharge Date Admission Date: March 28, 2024 Supervising Physician Co-Signing Physician Notes Attending Attestation & Progress Note: Pt seen/examined, chart reviewed, care plan d/w MARY Pineda. I agree w/ the matthew components of her documentation except - * imdur is on hold * entresto on hold s/p EGD today -- duodenitis has resolved; gastropathy much improved - minimal irritation noted by GI during the scope. No new areas of bleeding seen. Patient feeling well post- EGD. Denies dizziness or cp, sob, abd pain, nausea. Tolerating liquids. Exam - gen - NAD, looks better skin - pallor improved today heart - RRR, s1 s2, no murmur lungs - CTA b/l - a few fine dry rales bases only abd - soft NT ND BS+ ext - no edema, pulses 2 + b/l A/P: 1. acute blood loss anemia - did received an additional unit of PRBCs last pm w/o incident with improved H/H this am. Plan repeat cbc tomorrow. Acute blood loss is presumed upper GI bleeding although none found on EGD today; source - small bowel? need for capsule endoscopy? Outpatient colonoscopy being planned first by GI. Cont PPI drip today; if H/H are stable in am can stop and revert to PO PPI twice daily. 2. presumed upper GI bleeding - see #1; H/H stable today 3. h/o systolic CHF - improved EF this admission; cont BB; compensated on exam. Life vest has been d/c. Hold entresto as BPs are low-normal. hold imdur due to low-normal BPs. 4. CAD - prior stent. asa was placed on hold yesterday following a huge melena stool. Cont BB. Cont statin. clears today, full liquids tomorrow am Walt Goldsmith MD Subjective Patient is laying in his bed, resting at the time of visit. States that his fatigue is improved since admission, but has been about the same for the past day. Continues to have melanotic stools, but this morning was not as dark as previous days. Denies chest pain, shortness of breath, N/V, abdominal pain, or lightheadedness. Telemetry: Sinus rhythm with PACs, rate 60-70 overnight Review of Systems Review of Systems: The patient denies chest pain, palpitations, cough, lower extremity swelling, sore throat, fevers, chills, sweats, nausea, vomiting, diarrhea , constipation, abdominal pain, pelvic pain, blood in urine, dysuria, urinary frequency or urgency, memory loss, loss of consciousness, rash, imbalance, focal weakness, numbness or tingling in arms or legs, generalized arthralgias or myalgias, back or neck pain, or night sweats. The review of systems is otherwise negative other than for that already noted above, and at least 10 systems have been reviewed. Constitutional: + fatigue Respiratory: no dyspnea Cardiovascular: no palpitations, no lightheadedness, no syncope and no edema Gastrointestinal: + melena; no abdominal pain, no nausea, no vomiting, no hematemesis, no excessive flatulence and no constipation Neurologic: no generalized weakness, no tingling and no numbness Physical Exam Respiratory: normal respiratory effort, lungs clear to auscultation Cardiovascular: RRR, no murmur, no edema Gastrointestinal (Abdomen): Inspection/Auscultation: normal bowel sounds Percussion/Palpation: abdomen soft; abdomen nontender, no guarding and no abdominal mass Skin: + pallor Results & Data Results & Data Vital Signs (Past 12 Hours) Vital Signs Temp Pulse Pulse Resp BP BP Pulse Ox 03/31/24 11:46 37.1 C 83 18 102/63 95 03/31/24 09:00 67 03/31/24 07:55 37.0 C 66 20 105/64 97 03/31/24 01:57 36.8 C 69 14 96/59 L 94 03/31/24 01:27 37.2 C 67 16 104/63 94 03/31/24 00:27 37 C 72 16 105/67 94 03/31/24 00:02 78 03/30/24 23:57 36.7 C 71 16 105/65 92 O2 Del Method 03/31/24 11:46 Room Air 03/31/24 09:00 03/31/24 07:55 Room Air 03/31/24 01:57 03/31/24 01:27 03/31/24 00:27 03/31/24 00:02 03/30/24 23:57 Laboratory Results Abnormal lab results 03/28/24 03/30/24 03/30/24 Range/Units 18:58 11:59 18:58 WBC 4.20 L 3.97 L (4.8-10.8) K/ul RBC 2.99 L 2.68 L (4.70-6.10) M/uL Hgb 8.6 L 7.7 L (14.0-18.0) g/dl Hct 28.8 L 25.5 L (42.0-52.0) % MCHC 29.9 L 30.2 L (32.0-36.0) g/dL RDW Std Deviation 63.3 H 65.0 H (36.4-46.3) fL RDW Coeff of Carrol 20.4 H 20.4 H (11.5-14.5) % Lymph # (Auto) 0.37 L (1.20-3.40) K/uL Chloride (98-107) mmol/L Calcium (8.6-10.3) mg/dl Crossmatch See Detail 03/31/24 Range/Units 05:38 WBC 4.07 L (4.8-10.8) K/ul RBC 3.10 L (4.70-6.10) M/uL Hgb 9.0 L (14.0-18.0) g/dl Hct 29.1 L (42.0-52.0) % MCHC 30.9 L (32.0-36.0) g/dL RDW Std Deviation 58.8 H (36.4-46.3) fL RDW Coeff of Carrol 19.4 H (11.5-14.5) % Lymph # (Auto) 0.37 L (1.20-3.40) K/uL Chloride 109 H (98-107) mmol/L Calcium 8.3 L (8.6-10.3) mg/dl Crossmatch PG Care Time/CCT Total # of Minutes Spent Total Time Spent with Patient: Total time spent is greater than 50% in coordination of care (as documented) at patient's floor/unit and/or counseling patient: Coding Level of Care Code None Diagnoses Symptomatic anemia D64.9 Acute GI bleeding K92.2 CAD (coronary artery disease) I25.10 Acute blood loss anemia D62 Heart failure with improved ejection fraction (HFimpEF) I50.32 PAF (paroxysmal atrial fibrillation) I48.0
[2024-03-31] MEDS: SODIUM CHLORIDE 0.9% 500 ML IV SCH (12:37)
--- NOTE | 2024-03-31 14:45 | GI REPORT ---
[facility] Patient: FREDY FARIAS : 1950 Sex at : Male Age: 73 Years Procedure: Upper GI endoscopy Date: 03/31/2024 Attending Physician: Cristobal Reynoso MD Referring MD: Anuj Madrid Indications: - Recent gastrointestinal bleeding Medications: - Monitored Anesthesia Care Complications: - No immediate complications. Estimated Blood Loss: - Estimated blood loss: None. Procedure: - The egd scope was introduced through the mouth and advanced to the third part of the duodenum. - The upper GI endoscopy was accomplished without difficulty. - The patient tolerated the procedure well. Findings: - The Z-line was regular and was found 38 cm from the incisors. - The examined esophagus was normal. No evidence of varices, Hoffman's mucosa or esophagitis. - A few localized diminutive erosions with no bleeding and no stigmata of recent bleeding were found in the gastric antrum. Biopsies were taken with a cold forceps for histology. Otherwise the stomach was normal. There was no evidence of ulcer or bleeding site. There was no evidence of varices. - The examined duodenum was normal. There was no evidence of duodenitis or ulcer. Impression: - Z-line regular, 38 cm from the incisors. - Normal esophagus. - No evidence of varices, Hoffman's mucosa or esophagitis. - Erosive gastropathy with no bleeding and no stigmata of recent bleeding. Biopsied. - Otherwise the stomach was normal. There was no evidence of ulcer or bleeding site. There was no evidence of varices. - Normal examined duodenum. - There was no evidence of duodenitis or ulcer. Recommendation: - I anticipate no further need for intervention. - Observe patient's clinical course. - Outpatient colonoscopy to be arranged. - Continue to hold antiplatelet therapy and anticoagulation. Procedure Code(s): - 30142, Esophagogastroduodenoscopy, flexible, transoral; with biopsy, single or multiple Diagnosis Code(s): - K92.2, Gastrointestinal hemorrhage, unspecified - K31.89, Other diseases of stomach and duodenum CPT(R) - 2023 copyright [employer]. All Rights Reserved. The CPT codes, CCI edits and ICD codes generated are intended as suggestions and were generated based on input data. These codes are preliminary and upon restaurant greeter review may be revised to meet current compliance and payer requirements. The provider is responsible for the final determination of appropriate codes, and modifiers. Cristobal Reynoso M.D., MD This document has been electronically signed. Note Initiated:03/31/2024 Note Completed:03/31/2024 2:44 PM \\[email or web address]\[email or web address]\Results\[email or web address]\[id number]
--- NOTE | 2024-03-31 16:38 | Anesthesiology Progress Note ---
Date of Service March 31, 2024 Anesthesia Post Procedure Vital Signs Vital Signs: Temp Pulse Pulse Resp BP BP Pulse Ox 03/31/24 15:46 72 18 115/66 97 03/31/24 15:11 67 16 124/62 97 03/31/24 14:56 66 16 127/68 94 03/31/24 14:41 77 16 101/64 92 03/31/24 12:32 36.5 C 78 16 131/72 96 03/31/24 11:46 37.1 C 83 18 102/63 95 03/31/24 09:00 67 03/31/24 07:55 37.0 C 66 20 105/64 97 03/31/24 01:57 36.8 C 69 14 96/59 L 94 03/31/24 01:27 37.2 C 67 16 104/63 94 03/31/24 00:27 37 C 72 16 105/67 94 03/31/24 00:02 78 03/30/24 23:57 36.7 C 71 16 105/65 92 03/30/24 23:42 36.9 C 69 14 101/64 92 03/30/24 23:16 36.9 C 64 18 92/53 L 95 03/30/24 23:16 36.9 C 69 16 97/61 L 93 03/30/24 19:36 37.1 C 75 18 100/65 93 O2 Del Method 03/31/24 15:46 Room Air 03/31/24 15:11 Room Air 03/31/24 14:56 Room Air 03/31/24 14:41 Room Air 03/31/24 12:32 Room Air 03/31/24 11:46 Room Air 03/31/24 09:00 03/31/24 07:55 Room Air 03/31/24 01:57 03/31/24 01:27 03/31/24 00:27 03/31/24 00:02 03/30/24 23:57 03/30/24 23:42 03/30/24 23:16 Room Air 03/30/24 23:16 03/30/24 19:36 Room Air Transfer of Care Handoff Completed per policy Notes Mental Status: alert / awake / arousable Patient Amnestic to Procedure: Yes Nausea / Vomiting: adequately controlled Pain: adequately controlled Airway Patency, RR, SpO2: stable & adequate BP & HR: stable & adequate Hydration State: stable & adequate Anesthetic Complications: no major complications apparent
[2024-03-31] MEDS: PROPOFOL IV EMULSION 10 MG/ML 20 ML VIAL IV ONE (19:29)
[2024-03-31] MEDS: PHENYLEPHRINE 100MCG/ML 10ML SYR IV ONE (19:29)
[2024-03-31] MEDS: LIDOCAINE 2% 2 ML VIAL/AMP(20MG/ML) INFIL ONE (19:29)
--- NOTE | 2024-03-31 21:07 | Billing Data ---
Date of Service March 31, 2024 Coding Level of Care Code 76486 SUB INP/OBS CARE
[2024-04-01 06:03] LABS: Hemoglobin 8.9 g/dl (14.0-18.0); Mean Corpuscular Hemoglobin 28.9 pg (25.0-34.0); Mean Corpuscular Hgb Conc 30.7 g/dL (32.0-36.0); Mean Corpuscular Volume 94.2 fL (80.0-100.0); Mean Platelet Volume 10.7 fL (9.4-12.4); Platelet Count 211 K/uL (130-400); RDW Coefficient of Variation 19.3 % (11.5-14.5); RDW Standard Deviation 61.8 fL (36.4-46.3); Red Blood Count 3.08 M/uL (4.70-6.10); White Blood Count 3.55 K/ul (4.8-10.8)
[2024-04-01 06:14] LABS: BUN Creatinine Ratio 16.7 (10-20); Calcium 8.3 mg/dl (8.6-10.3); Creatinine Clr Calc Pharmacy 71.8 ml/min; Est GFR (African American) 98.5 ml/min; Potassium 3.8 mmol/L (3.5-5.1)
[2024-04-01] MEDS: PANTOprazole 40 MG TAB PO SCH (09:07)
[2024-04-01] MEDS: METOPROLOL SUCC 25MG EXT REL TAB PO SCH (09:07)
--- NOTE | 2024-04-01 10:48 | Hospitalist Progress Note ---
Date of Service April 01, 2024 Assessment & Plan (1) Symptomatic anemia: Plan: Previous admission 03/17 - 03/19/2024 requiring transfusion. s/p EGD during prior admission showing likely NSAID induced gastropathy & duodenitis. This admission - Hb 6.7 upon presentation. s/p EGD yesterday -- duodenitis resolved; minimal gastric irritation. No active bleeding. Overall improved EGD in comparison to prior admission EGD. total 3 units PRBCs given this admission. H/H x 2 today stable with Hb 9. Melena stooling suspected to be OLD blood. I notified GI of his melena stool from this am and no plans for repeat EGD. Outpatient colonoscopy is being recommended for near-future. Advance diet to regular and recheck CBC am. Cont PPI - can change from IV to PO. (2) Acute GI bleeding: Plan: cont PPI bid (3) Acute blood loss anemia: Plan: As above s/p 3 units of PRBCs in total this admission s/p venofer 300mg IV x 1 this admission (and he had another infusion of IV Fe as outpatient several days before admission) H/H stable on 2 checks today CBC am (4) CAD (coronary artery disease): Plan: Echocardiogram (03/29) - EF 55-60% Continue metoprolol succinate but reduce dose by 1/2 to 25mg daily HOLDING Entresto, isosorbide mononitrate, & furosemide due to low-normal BPs Discontinue lifevest since EF has recovered Cardiology recommends considering Watchman procedure since Eliquis has been on hold in the setting of recurrent GI bleeding Plavix d/c for now (5) Heart failure with improved ejection fraction (HFimpEF): Plan: Previous EF in the 20s Now 50-55% Compensated on exam today (6) PAF (paroxysmal atrial fibrillation): Plan: As above Eliquis on hold due to recurrent GI bleeding Cont meto succ but at reduced dose Plan Hyperlipidemia - continue atorvastatin Gout - resume allopurinol DVT prevention: previously anticoagulated on Eliquis but now on hold due to recurrent GI bleeding Patient is ambulating SCDs Dispo: home -- tomorrow if CBC, vitals, etc are stable?? Admission and Anticipated Discharge Date Admission Date: March 28, 2024 Subjective had another melena stool this am - his first one since yesterday despite such NO abd pain, nausea or emesis he is hungry - wants regular food feels weak but denies dizziness today no dyspnea or chest pain tele overnight wnl - NSR Review of Systems Review of Systems: CV - no orthopnea, no edema, no PND pulm - no dyspnea at rest or with exertion GI - no vomiting, no BRBPR Physical Exam Physical Exam: gen - NAD, pleasant mouth - MMM skin - moderate pallor neck - no JVD heart - RRR, s1 s2, 2/6 JENNIFER LSB lungs - minimal faint dry rales bases, cta b/l otherwise abd - soft NT ND BS+; no HSM ext - no edema, pulses 2+ b/l Results & Data Results & Data Vital Signs (Past 12 Hours) Vital Signs Temp Pulse Pulse Resp BP Pulse Ox O2 Del Method 04/01/24 09:12 62 04/01/24 07:51 37.2 C 60 16 124/64 95 Room Air 04/01/24 02:55 36.9 C 70 18 108/65 96 Room Air Laboratory Results Laboratory Results - last 24 hr 04/01/24 04/01/24 05:17 07:39 WBC 3.55 L RBC 3.08 L Hgb 8.9 L Hct 29.0 L MCV 94.2 MCH 28.9 MCHC 30.7 L RDW Std Deviation 61.8 H RDW Coeff of Carrol 19.3 H Plt Count 211 MPV 10.7 Sodium 139 Potassium 3.8 Chloride 110 H Carbon Dioxide 22 Anion Gap 7 BUN 15 Creatinine 0.90 Est Cr Clr Drug Dosing 71.8 Est GFR ( Amer) 98.5 Est GFR (Non-Af Amer) 85.0 BUN/Creatinine Ratio 16.7 Glucose 101 H POC Glucose 117 H Calcium 8.3 L PG Care Time/CCT Total # of Minutes Spent Total Time Spent with Patient: Total time spent is greater than 50% in coordination of care (as documented) at patient's floor/unit and/or counseling patient: Coding Level of Care Code 08676 SUB INP/OBS CARE 2/35MIN Diagnoses Symptomatic anemia D64.9 Acute GI bleeding K92.2 Acute blood loss anemia D62 CAD (coronary artery disease) I25.10 Heart failure with improved ejection fraction (HFimpEF) I50.32 PAF (paroxysmal atrial fibrillation) I48.0
[2024-04-01 13:18] LABS: Hematocrit (blood only) 28.3 % (42.0-52.0)
[2024-04-02 07:02] LABS: Hematocrit (blood only) 29.6 % (42.0-52.0); Hemoglobin 9.4 g/dl (14.0-18.0); Mean Corpuscular Hemoglobin 29.8 pg (25.0-34.0); Mean Corpuscular Hgb Conc 31.8 g/dL (32.0-36.0); Mean Platelet Volume 10.7 fL (9.4-12.4); Platelet Count 217 K/uL (130-400); RDW Coefficient of Variation 18.6 % (11.5-14.5); RDW Standard Deviation 62.2 fL (36.4-46.3); Red Blood Count 3.15 M/uL (4.70-6.10); White Blood Count 3.99 K/ul (4.8-10.8)
[2024-04-02 07:58] VITALS: RESP 18; O2SAT 96
[2024-04-02] MEDS: allopurinoL 100 MG TAB PO SCH (09:01)
[2024-04-02] MEDS: FEXOFENADINE HCL 180 MG TAB PO SCH (09:05)
[2024-04-02 11:39] VITALS: BP 127/76; PULSE 66; TEMP 98.2
--- NOTE | 2024-04-02 12:42 | Discharge Summary ---
Discharge Summary Date of Service date of admission - March 28, 2024 date of discharge - April 02, 2024 Principal Dx & Hospital Course #1 = Principal Diagnosis (1) Symptomatic anemia: Patient was admitted 03/17/24 - 03/19/2024 for acute blood loss anemia 2nd to upper GI bleeding requiring transfusion. s/p EGD during the prior admission showing likely NSAID induced gastropathy & duodenitis. Hemoglobin on 03/17 was 5.5. Discharge hemoglobin was 9.1. He received 3 units PRBCs during that prior stay. This admission - Hemoglobin was 6.7 upon presentation. He reported seeing melena stools at home. He had fatigue, weakness, and dyspnea. He received in total 3 units of PRBCs during this admission as well. He was placed on IV PPI drip. [facility] was consulted, and he underwent another EGD this admission. EGD -- Duodenitis was resolved; minimal gastric irritation was found. No active bleeding was seen. Overall the upper GI tract was improved on this EGD in comparison to prior admission EGD. Although he had additional melena stools following his 03/31/24 EGD it was felt to represent OLD blood. Hemoglobin on 04/01 was 9, and hemoglobin on 04/02 (day of discharge) was 9.4. IV PPI drip was transitioned to oral PPI twice daily. Diet was resumed, advanced, and tolerated well by the patient. On day of discharge he was walking without dizziness, lightheadedness, or dyspnea. Fatigue was better. [facility] is recommending outpatient colonoscopy to be complete to ensure no other source of bleeding is present. If patient continues with GI bleeding or refractory iron deficiency - especially if colonoscopy is negative - need for capsule endoscopy to look at small bowel? Defer that decision to GI. At discharge advised the following - * protonix 40mg BID * HOLD Eliquis * HOLD plavix * NO NSAIDs * repeat CBC with iron studies within 5 days to ensure stability; patient to likely have these drawn at [facility] * outpatient colonoscopy by [facility] - to be scheduled If repeat CBC is stable consider adding back plavix (or aspirin) for his known CAD. If iron studies continue to show iron deficiency consider another dose of IV venofer as outpatient. (2) Acute GI bleeding: cont PPI bid see #1 above (3) Acute blood loss anemia: Presumed 2nd to GI bleeding s/p 3 units of PRBCs in total this admission s/p venofer 300mg IV x 1 this admission (and he had another infusion of IV Fe as outpatient several days before admission) see #1 above (4) CAD (coronary artery disease): Echocardiogram (03/29/24) - EF 55-60%; previous echo earlier this year with EF 20's Continue metoprolol succinate but reduce dose by 1/2 to 25mg daily as BPs have been low or low-normal in the setting of his GI bleeding & anemia HOLDING Entresto, isosorbide mononitrate, & furosemide due to low-normal BPs Discontinue LifeVest since EF has recovered Cardiology recommends considering Watchman procedure since Eliquis has been on hold in the setting of recurrent GI bleeding Plavix d/c for now as discussed above Fortunately patient had NO ischemic symptoms at any time during this admission (5) Heart failure with improved ejection fraction (HFimpEF): Previous EF in the 20s (December 2023) Now 50-55% Compensated on exam at time of discharge Continue metoprolol succinate 25mg daily Ideally Entresto is resumed but on hold for now due to low-normal BPs Continue lasix but use on PRN basis for weight gain of more than 3 pounds over 1-2 days (6) PAF (paroxysmal atrial fibrillation): No a.fib seen at any time during this admission Eliquis on hold due to recurrent GI bleeding Consider referral for Watchman Device implantation to tertiary care center due to recurrent GI bleeding Cont meto succ but at reduced dose of 25mg daily as noted above Patient will need to see Dr Phoenix Mart - [facility] - within 1-2 weeks of discharge to recheck his cardiac status, potentially add back certain cardiac medications, etc. (7) History of transcarotid artery revascularization (TCAR): left November 2022 [facility] - Dr Kenn Ventura when resuming antiplatelet agent in the near-future need to consider not only his CAD but his previous h/o TCAR --> plavix vs aspirin ?? Plan Hyperlipidemia - continue atorvastatin Gout - continue allopurinol Patient is returning home at discharge Ambulating independently and at typical physical baseline Notes For Next Care Provider 1. outpatient colonoscopy needed - [facility] to perform 2. referral for consideration of Watchman Device 3. CBC, iron studies within 5 days of discharge Medication Changes From Visit ALL cardiac meds are on hold except for - 1. metoprolol 25mg daily (reduced from 50mg daily) 2. lasix now PRN rather than standing/daily Protonix 40mg BID Admission HPI Per Admitting Provider The patient is a 73-year-old male with a past medical history including cardiomyopathy, atrial fibrillation with RVR, hypertension, carotid artery stenosis, CAD, PAF, stented coronary artery, gout, vitamin D deficiency, hypertension, hyperlipidemia, and prostate cancer. He had been admitted to [facility] from 03/17-03/19/2024 after presenting with upper GI bleed with dark stools, and found to have hemoglobin of 5.5. He received a total of 3 units PRBCs during that admission, and was discharged on 03/19 with hemoglobin of 9.1. EGD on 03/18 showed erosive gastropathy, and erythematous duodenopathy. He was given an Rx upon discharge for Protonix 40 mg p.o. twice daily, which he unfortunately had missed the first 3 days due to insurance noncoverage. He has continued to feel very fatigued, short of breath and dyspnea on exertion. Discharge Exam gen - NAD, pleasant mouth - MMM skin - mild-moderate pallor neck - no JVD heart - RRR, s1 s2, 2/6 JENNIFER LSB/RUSB lungs - minimal faint dry rales R base, cta b/l otherwise abd - soft NT ND BS+; no HSM ext - no edema, pulses 2+ b/l Discharge Plan Discharge Items Patient Disposition: Home - Self-Care Reason For Visit: GI BLEED, SYMPTOMATIC ANEMIA Discharge Diagnosis: 1. presumed upper GI bleed - resolved 2. acute, symptomatic blood loss anemia - improved; 3 units of blood given, 1 run of IV iron given 3. gastritis as seen on upper endoscopy 4. history of congestive heart failure - IMPROVED; previous ejection fraction was 30-35%; now 55-60% 5. history of atrial fibrillation - no recurrence 6. coronary artery disease 7. history of carotid artery stenosis Activity: As commented below Activity Comment: gradually increase activities over the next 5-7 days Exercise/Sports: Wait until after follow-up appointment Non-emergency contact: Primary Care Provider, Angle Shear Operator and Instrument Mechanics Supervisor Call non-emergency contact if: you have any medication questions and your symptoms worsen Follow-up/Referrals: Phoenix Mart MD, PhD [Physician] - 04/12/24 1:30 pm (1-2 weeks; we will help arrange an appointment for you ) Sera Hart CRNP [Primary Care Provider] - 04/06/24 10:40 am (1 week ) Cristobal Reynoso MD [Physician] - (you will need an outpatient colonoscopy; to be arranged) Diet: Heart Healthy Ambulatory Orders: Complete Blood Count no Diff (Routine) Timeframe: 20240405 Location: Determined by Patient Ordered By: Walt Goldsmith Iron (Routine) Timeframe: 20240405 Location: Determined by Patient Ordered By: Walt Goldsmith Ferritin (Routine) Timeframe: 20240405 Location: Determined by Patient Ordered By: Walt Goldsmith Unsaturated Iron Binding Cap (Routine) Timeframe: 20240405 Location: Determined by Patient Ordered By: Walt Goldsmith Addtl Attending Provider Instructions: Mr Grover, You were hospitalized due to concern for recurrent upper GI bleeding. You required 3 units of blood and 1 run of IV iron while here. Your lowest hemoglobin was 6.7, improving to 9.4 on day of discharge. A repeat upper endoscopy ("EGD") was done. This showed that the irritation in your stomach (gastritis) was improved from the prior EGD done earlier in March. Additionally, the irritation in the first portion of the small intestine seen on the prior EGD was fully resolved. We did NOT see any new areas of bleeding. [facility] is recommending an outpatient colonoscopy in the near-future to be complete. You were seen by [facility]. Your echocardiogram revealed great news - your heart's pumping ability is now back to normal (the ejection fraction is 55-60%). Recommendations - 1. avoid ALL forms of anti-inflammatory pills including but not limited to -- * aspirin * motrin / ibuprofen * naprosyn / aleve * prednisone 2. avoid alcohol, spicy foods, fried foods, excessive caffeinated beverages 3. OK to STOP use of the LifeVest since your ejection fraction has normalized 4. do not take the following medicines - * Entresto * isosorbide mononitrate * clopidogrel * Eliquis 5. LOWER your metoprolol succinate from 50mg/day to 25mg/day (simply cut the pill in half) 6. use your furosemide water pill (diuretic) NEEDED for weight gain or swelling/edema in your legs 7. ONLY take the potassium supplement if you take the furosemide 8. check your weight every day on the same scale first thing in the morning. if you gain more than 2-3 pounds of weight over a 1-2 day period assume this is water weight gain from your heart. If this happens start taking the furosemide. Take the furosemide daily until your weight is back down to your normal "dry" weight 9. to heal your stomach take pantoprazole 40mg TWICE DAILY every day 10. have a blood draw next Thursday or Thursday; please go to [facility] to have these drawn; see paper lab orders; you do not need to fast for these labs Follow-up - see separate section Return to [facility] if - * you are seeing black, tarry, or very dark stools consistently * you are seeing bright red blood in your stools * you have abdominal pain * you have chest pains or shortness of breath * you are dizzy or lightheaded * any other concerns It was our pleasure to care for you! -Dr Goldsmith Addtl Dispatcher Service Provider Instructions: Call 911 and go to the Emergency Room if: * You have tightness or pain in your chest that does not go away with rest or Nitroglycerin * You are very short of breath even with rest Call your doctor if any of the following symptoms or problems start or get worse: * Shortness of breath or difficulty breathing * Wake up at night short of breath * Chest pain * Cough * Swelling of your hands, fee, or legs * More fatigued or tired with your normal activity * Palpitations - sudden fast heart beats WEIGHT * Weigh yourself every morning after using the bathroom. * Use the same scale. * Wear the same amount of clothing. * Write your weight down on your chart. * Call your doctor if you gain more than 2-3 pounds in 1-2 days. This is usually the first sign of fluid retention from heart problems. You can start the furosemide diuretic if this happens. MEDICATIONS * Use this discharge instruction sheet for instructions. * Take your medications at the time your doctor ordered. * Do not skip a dose of your medicines. * If you miss a dose of medicine, take as soon as possible, but DO NOT DOUBLE A DOSE. * Read your medicine information when you get home. * Know all of the side effects of your medicine. * Call your doctor's office if you have any side effects. * Be sure all of your doctors know what medicine and herbs you take (including cold, flu, and herbal medicine). * Pain Medicine: If you do not get relief from your pain, please call your doctor for help. Take the following with you to your follow-up doctor appointments: * Weight Chart * Medication List * List of questions Do not drink excessive alcohol, beer or wine. Pending Studies at Discharge: No Stand-Alone Forms: My [facility] Impres Medical, Smoking Cessation Medications and DC Order Prescriptions: Continued vitamin E (dl, acetate) 180 mg (400 unit) capsule 180 mg PO BID atorvastatin 80 mg tablet 80 mg PO HS nitroglycerin 0.4 mg tablet, sublingual 0.4 mg sublingual Q5M PRN (Reason: Chest Pain) Rx Instructions: do not exceed 3 doses per episode allopurinol 100 mg tablet 100 mg PO QAM multivitamin Tablet 1 tab PO QAM ascorbic acid (vitamin C) 1,000 mg capsule 1 g PO QAM tamsulosin 0.4 mg capsule 0.4 mg PO HS vitamin B complex Tablet 1 tab PO QAM pantoprazole [Protonix] 40 mg tablet,delayed release (DR/EC) 40 mg PO BID Qty: 60 1RF fexofenadine [Allergy Relief (fexofenadine)] 180 mg tablet 180 mg PO QAM Changed metoprolol succinate 50 mg tablet extended release 24 hr 25 mg PO DAILY Qty: 30 0RF potassium chloride 20 mEq tablet,ER particles/crystals 20 meq PO DAILY PRN (Reason: take only if you are using furosemide diuretic) Qty: 0 0RF furosemide [Lasix] 20 mg tablet 20 mg PO QAM PRN (Reason: weight gain/edema of legs) Qty: 0 0RF Held Entresto 24-26 mg tablet 1 tab PO BID Qty: 180 3RF Hold Instructions: hold unless your turnstile attendant asks you to resume Eliquis 5 mg tablet 5 mg PO BID Qty: 180 3RF Hold Instructions: hold unless your outpatient providers ask you to resume clopidogrel 75 mg tablet 75 mg PO HS Hold Instructions: hold unless your outpatient providers ask you to resume Discontinued isosorbide mononitrate 30 mg tablet extended release 24 hr 30 mg PO QAM Discharge Orders: Discharge Order (Routine); Ordered 04/02/24 Ordered By: Walt Goldsmith Admission Data Admit Date/Time: 03/28/24 22:08 Attending Provider: Walt Goldsmith Admit Provider: Isak Huerta Primary Care Provider: Sera Hart Other Providers: Isak Huerta; Ozzy Powers; Ailyn Ratliff Jr Other Interventions: Discharge Summary Assessment (RN) Last Done: 04/02/24 12:38 Hospital Stay Data Consultations [facility] Procedures Performed Operation Date: 03/31/24 16:30 Actual Procedures EGD Biopsy Cytology - Cristobal Reynoso MD Impression: - Z-line regular, 38 cm from the incisors. - Normal esophagus. - No evidence of varices, Hoffman's mucosa or esophagitis. - Erosive gastropathy with no bleeding and no stigmata of recent bleeding. Biopsied. - Otherwise the stomach was normal. There was no evidence of ulcer or bleeding site. There was no evidence of varices. - Normal examined duodenum. - There was no evidence of duodenitis or ulcer. Recommendation: - I anticipate no further need for intervention. - Observe patient's clinical course. - Outpatient colonoscopy to be arranged. - Continue to hold antiplatelet therapy and anticoagulation. Echocardiogram: 3 units PRBCs 1 run of IV Venofer Pending Results Patient Have Any Pending Studies at Discharge: No Discharge Instructions Given to Patient (Per Discharging Provider) Mr Grover, You were hospitalized due to concern for recurrent upper GI bleeding. You required 3 units of blood and 1 run of IV iron while here. Your lowest hemoglobin was 6.7, improving to 9.4 on day of discharge. A repeat upper endoscopy ("EGD") was done. This showed that the irritation in your stomach (gastritis) was improved from the prior EGD done earlier in March. Additionally, the irritation in the first portion of the small intestine seen on the prior EGD was fully resolved. We did NOT see any new areas of bleeding. [facility] is recommending an outpatient colonoscopy in the near-future to be complete. You were seen by [facility]. Your echocardiogram revealed great news - your heart's pumping ability is now back to normal (the ejection fraction is 55-60%). Recommendations - 1. avoid ALL forms of anti-inflammatory pills including but not limited to -- * aspirin * motrin / ibuprofen * naprosyn / aleve * prednisone 2. avoid alcohol, spicy foods, fried foods, excessive caffeinated beverages 3. OK to STOP use of the LifeVest since your ejection fraction has normalized 4. do not take the following medicines - * Entresto * isosorbide mononitrate * clopidogrel * Eliquis 5. LOWER your metoprolol succinate from 50mg/day to 25mg/day (simply cut the pill in half) 6. use your furosemide water pill (diuretic) NEEDED for weight gain or swelling/edema in your legs 7. ONLY take the potassium supplement if you take the furosemide 8. check your weight every day on the same scale first thing in the morning. if you gain more than 2-3 pounds of weight over a 1-2 day period assume this is water weight gain from your heart. If this happens start taking the furosemide. Take the furosemide daily until your weight is back down to your normal "dry" weight 9. to heal your stomach take pantoprazole 40mg TWICE DAILY every day 10. have a blood draw next Thursday or Thursday; please go to [facility] to have these drawn; see paper lab orders; you do not need to fast for these labs Follow-up - see separate section Return to [facility] if - * you are seeing black, tarry, or very dark stools consistently * you are seeing bright red blood in your stools * you have abdominal pain * you have chest pains or shortness of breath * you are dizzy or lightheaded * any other concerns It was our pleasure to care for you! -Dr Goldsmith Total Time Total Time Spent Total Time Spent (In Minutes): 50 Coding Level of Care Code 98344 INP/OBS DISCH >30 MIN Diagnoses Symptomatic anemia D64.9 Acute GI bleeding K92.2 Acute blood loss anemia D62 CAD (coronary artery disease) I25.10 Heart failure with improved ejection fraction (HFimpEF) I50.32 PAF (paroxysmal atrial fibrillation) I48.0 History of transcarotid artery revascularization (TCAR) Z98.62
== END 2024-04-02 13:12 | disposition home or self-care (01) | DRG 378 ==
LOC: ED 18:42 → 2S 22:08 → SUATTDRO 22:08 → 2S 22:58
DX: I34.0 Nonrheumatic mitral (valve) insufficiency; K29.80 Duodenitis without bleeding; Z79.02 Long term (current) use of antithrombotics/antiplatelets; I48.0 Paroxysmal atrial fibrillation; D62 Acute posthemorrhagic anemia; I50.20 Unspecified systolic (congestive) heart failure; Z95.5 Presence of coronary angioplasty implant and graft; M10.9 Gout, unspecified; K31.89 Other diseases of stomach and duodenum; I25.10 Atherosclerotic heart disease of native coronary artery without angina pectoris; K31.9 Disease of stomach and duodenum, unspecified; E78.5 Hyperlipidemia, unspecified; I42.8 Other cardiomyopathies; I11.0 Hypertensive heart disease with heart failure; K29.70 Gastritis, unspecified, without bleeding; C61 Malignant neoplasm of prostate; K92.1 Melena